=== PATIENT | female | born 1955 | race Caucasian/White ===

== ENCOUNTER → 2017-12-13 08:13 | Outpatient (CLI) | payer BC, SELFPAY ==
[2017-12-13 12:26] LABS: Absolute Lymphocyte Count 1.44 X10^3/ul (0.83-4.51); Absolute Neutrophil Count 3.3 X10^3/uL (2.0-7.7); Basophil# 0.04 X10^3/uL; Basophil% 0.7 % (0-1); Eosinophil# 0.11 X10^3/uL; Hematocrit 42.6 % (37-47); Hemoglobin 14.2 g/dl (12.0-15.0); Lymphocyte # 1.44 X10^3/ul (4.0); Lymphocyte % 26.6 % (19-41); Mean Corp Hgb Conc 33.3 g/gl (32-36); Mean Corpuscular Hgb 31.9 pg (27.0-32.0); Mean Corpuscular Volume 95.7 fL (81-99); Monocyte# 0.48 X10^3/uL; Monocyte% 8.9 % (0-10); Neutrophil # 3.32 X10^3/uL (2.7-7.7); Neutrophil % 61.4 % (47-70); Platelet Count 233 K/mm3 (150-450); RBC Distribution Width CV 13.8 % (11.6-14.6); RBC Distribution Width SD 46.9 fl (35.1-43.9); Red Blood Count 4.45 M/mm3 (4.2-5.4); White Blood Count 5.4 K/mm3 (4.4-11.0)
[2017-12-13 12:32] LABS: POSITIVE COUNT NO; POSITIVE DIFFERENTIAL NO; POSITIVE MORPHOLOGY NO
[2017-12-13 12:50] LABS: ALB/GLOB Ratio 1.3 RATIO (0.9-2.4); AST(SGOT) 23 U/L (15-37); Alanine Aminotransfer ALT/SGPT 46 U/L (13-56); Albumin, Serum 3.7 g/dL (3.2-5.0); Alkaline Phosphatase 114 U/L (45-117); Anion Gap 8 (5-15); BUN 13 mg/dL (7-18); BUN/Creat Ratio 20.2 RATIO (10-20); Calcium,Total 8.4 mg/dL (8.5-10.1); Chloride 102 mmol/L (98-107); Cholesterol 226 mg/dL (200); Creatinine, Serum 0.64 mg/dL (0.55-1.02); EST Glomerular Filtration Rate 99 mL/min (>60); Est Glom Filt Rate - Afr Amer 120 mL/min (>60); Globulin 2.8 g/dL (2.2-4.2); Glucose 91 mg/dL (74-106); High Density Lipoprotein 97 mg/dL; Potassium 4.2 mmol/L (3.5-5.1); Protein, Total 6.5 g/dL (6.4-8.2); Sodium Level 136 mmol/L (136-145); Thyroid Stim Hormone (TSH) 2.21 uIU/mL (0.358-3.74); Triglycerides 29 mg/dL; Very Low Density Lipoprotein 6 mg/dL (5-40)
== END ==
PROVIDERS: Family Provider Family Medicine; PCP Family Medicine; Visit Provider Family Medicine
DX: R03.0 Elevated blood-pressure reading, without diagnosis of hypertension (principal); Z86.39 Personal history of other endocrine, nutritional and metabolic disease
CPT/HCPCS: 36415; 80053; 80061; 84443; 85025

== ENCOUNTER → 2018-03-28 13:46 | Outpatient (CLI) | payer BC, SELFPAY ==
[2018-03-28 16:35] LABS: Estradiol < 11.0 pg/mL
[2018-03-28 16:48] LABS: Progesterone Level 0.74 ng/mL (See Comment)
[2018-04-02 11:28] LABS: HPV Reflexed? NOT INDICATED
--- OUTSIDE RECORDS SUMMARY | 2018-06-02 03:33 | XMS RPT_ITS ---
:1955 Author Organization OH[facility] Care Team Providers Name Role Phone Cheryle Godinez Attending Unavailable Lay Burger Attending Unavailable Lay Burger Primary Care Unavailable PROBLEMS PROBLEMS DATE TYPE CONDITION / CODE ATTENDING STATUS SOURCE 03/31/2018 Unknown Z12.4 - Encounter Cheryle Godinez for screening for Community malignant neoplasm [facility] cervix / Repository Z12.4(ICD-10) 03/31/2018 Unknown N95.1 - Menopausal Cheryle Godinez and female [facility] / N95.1(ICD-10) Repository 12/13/2017 Unknown R03.0 - Elevated Lay Burger Active [place] blood-pressure Community reading, without Hospital diagnosis of Repository hypertension / R03.0(ICD-10) 12/13/2017 Unknown Z86.39 - Personal Lay Burger Active [place] history of other Community endocrine, Hospital nutritional and Repository metabolic disease / Z86.39(ICD-10) PROCEDURES PROCEDURES No Procedure Records FoundRESULTS RESULTS ESTRADIOL Collected: 03/28/2018 Status: F Source: [place] 1:50 PM [facility] REPOSITORY TYPE CODE TESTS RESULT OUT OF RANGE REFERENCE UNITS LAB L3300.1750 pg/mL Normal ESTRADIOL < 11.0 Result Comment: NORMAL REFERENCE RANGES FEMALE FOLLICULAR 21.4 - 164.8 pg/mL MID-CYCLE PEAK 49.9 - 367.2 pg/mL LUTEAL 40.2 - 259.0 pg/mL POST-MENOPAUSAL ON MHT <11.0 - 462.1 pg/mL NOT ON MHT <11.0 - 58.3 pg/mL MALE <11.0 - 52.5 pg/mL NOTE: [facility] HAS CONFIRMED THE DRUG FULVETRANT (FASLODEX) MAY CAUSE FALSELY ELEVATED ESTRADIOL RESULTS WHEN USING THIS TEST METHOD. IF PATIENT IS TAKING FULVESTRANT AN ALTERNATIVE METHOD SHOULD BE USED TO DETERMINE ESTRADIOL CONCENTRATION. Performed By: #### L3300.1750 #### [facility] [address] [place], [address] PROGESTERONE LEVEL Collected: 03/28/2018 Status: F Source: [place] 1:[address] [facility] REPOSITORY TYPE CODE TESTS RESULT OUT OF REFERENCE UNITS RANGE LAB L509.4001 See Comment ng/mL Progesterone Normal 0.74 Result Comment: Progesterone Reference Table: UNITS Female: Follicular 0.15 - 1.40 ng/mL Luteal 3.34 - 25.56 ng/mL Mid-luteal 4.44 - 28.03 ng/mL Postmenopausal 0.0 - 0.73 ng/mL : 1st Trimester 11.22 - 90.00 ng/mL 2nd Trimester 25.55 - 89.40 ng/mL 3rd Trimester 48.40 -422.50 ng/mL Performed By: #### L509.4001 #### [facility] [address] [place], [address] PAP I-G W/RFX HRHPV Collected: 03/28/2018 Status: F Source: [place] 1:[address] [facility] REPOSITORY Order Comment: CYTOLOGY INFORMATION: - CLINICAL INFORMATION: HYSTERECTOMY - DATE LMP/MENOPAUSE: - COLLECTION VIAL: Thin Prep Vial - MACHINE CLOTH EXAMINER SOURCE: VAGINAL - COLLECTION TECHNIQUE: SPATULA ONLY Specimen Comment: [id number] Specimen Comment: Source.............Vagina Specimen Comment: LMP / Prev Treat...Hyst Specimen Comment: No. of containers..01 ThinPrep Vial TYPE CODE TESTS RESULT OUT OF RANGE REFERENCE UNITS LAB L7400.0800 . Normal DIAGN Comment Result Comment: NEGATIVE FOR INTRAEPITHELIAL LESION OR MALIGNANCY. CELLULAR CHANGES ASSOCIATED WITH ATROPHY ARE PRESENT. LAB L7400.0900 . Normal ADEQ Comment Result Comment: Satisfactory for evaluation. No endocervical cells are present. This is consistent with a history of hysterectomy. LAB L7400.1400 . Normal PERFORM Comment Result Comment: Shaila Parks, Amusement Machine Mechanic (ASCP) LAB L7400.2575 . Normal TEST METHOD Comment Result Comment: This liquid based ThinPrep(R) pap test was screened with the use of an image guided system. LAB L7400.2600 . Normal . COMM LAB L7400.2700 . Normal PAPSMR Comment Result Comment: The Pap smear is a screening test designed to aid in the detection of premalignant and malignant conditions of the uterine cervix. It is not a diagnostic procedure and should not be used as the sole means of detecting cervical cancer. Both false-positive and false-negative reports do occur. LAB L7400.2800 . Normal HPV RFLX Comment Result Comment: The HPV DNA reflex criteria were not met with this specimen result therefore, no HPV testing was performed. Performed at: - [facility] [id number] Tooling Supervisor: Alie Patel MD, Phone: [phone] Performed By: #### L7400.0350 #### [facility] (refer to report for specific site) refer to report for address and phone number CBC W/DIFF, AUTOMATED Collected: 12/13/2017 Status: F Source: [place] 8:[address] [facility] REPOSITORY TYPE CODE TESTS RESULT OUT OF RANGE REFERENCE UNITS LAB L100.1000 4.4-11.0 K/mm3 Normal WBC 5.4 LAB L100.1200 4.2-5.4 M/mm3 Normal RBC 4.45 LAB L100.1300 12.0-15.0 g/dl Normal HGB 14.2 LAB L100.1400 37-47 % Normal HCT 42.6 LAB L100.1500 81-99 fL Normal MCV 95.7 LAB L100.1600 27.0-32.0 pg Normal MCH 31.9 LAB L100.1700 32-36 g/gl Normal MCHC 33.3 LAB L100.1810 11.6-14.6 % Normal RDW CV 13.8 LAB L100.1820 35.1-43.9 fl High RDW SD 46.9 LAB L100.1900 150-450 K/mm3 Normal PLT 233 LAB L100.2000 6.2-12.0 fl Normal MPV 12.0 LAB L100.2100 47-70 % Normal NEUT% 61.4 LAB L100.2200 19-41 % Normal LY% 26.6 LAB L100.2300 0-10 % Normal MONO% 8.9 LAB L100.2400 0-5 % Normal EO% 2.0 LAB L100.2500 0-1 % Normal BASO% 0.7 LAB L100.2550 0.0-0.9 % Normal IM GRAN % 0.400 Result Comment: IG% - Immature Granulocytes (promyelocytes, myelocytes and metamyelocytes) > 1% indicates that a LEFT SHIFT is Present. LAB L100.2620 2.0-7.7 X10 3/uL Normal Absolute Neut 3.3 LAB L100.2720 0.83-4.51 X10 3/ul Normal Absolute Lymph 1.44 Performed By: #### L100.0100 #### [facility] [address] [place], [place], [address] COMPREHENSIVE METABOLIC Collected: 12/13/2017 Status: F Source: [facility] 8:[address] [facility] REPOSITORY TYPE CODE TESTS RESULT OUT OF RANGE REFERENCE UNITS LAB L501.0100 74-106 mg/dL Normal GLU 91 Result Comment: Please note revised GLUCOSE reference range effective 2017. LAB L501.1000 7-18 mg/dL Normal BUN 13 LAB L501.1100 0.55-1.02 mg/dL Normal CREAT,SERUM 0.64 Result Comment: The validity of the calculated GFR AND GFRAA in patients over 70 years has not been determined. Clinical correlation is essential. LAB L501.1110 >60 mL/min Normal EST GFR 99 Result Comment: Non- GFR Calc LAB L501.1115 >60 mL/min Normal EST GFR - AA 120 Result Comment: GFR Calc LAB L501.1300 10-20 RATIO High BUN/CRE 20.2 LAB L501.1500 6.4-8.2 g/dL T Normal PROT 6.5 LAB L501.1800 3.2-5.0 g/dL Normal ALB 3.7 LAB L501.1950 2.2-4.2 g/dL Normal GLOB 2.8 LAB L501.2000 0.9-2.4 RATIO Normal A/G 1.3 LAB L501.2200 8.5-10.1 mg/dL Low CA 8.4 LAB L501.4100 15-37 U/L Normal AST 23 LAB L501.4305 45-117 U/L Normal ALK P 114 LAB L501.4405 13-56 U/L Normal ALT 46 LAB L501.4600 0.20-1.00 mg/dL T Normal BILI 0.60 LAB L501.5300 136-145 mmol/L NA Normal 136 LAB L501.5600 3.5-5.1 mmol/L K Normal 4.2 LAB L501.5900 98-107 mmol/L CL Normal 102 LAB L501.6100 21.0-32.0 mmol/L Normal CO2 26.0 LAB L501.6200 5-15 Normal GAP 8 Performed By: #### L500.4050, L500.4100, L501.9520 #### [facility] [address] [place], [address] LIPID PROFILE Collected: 12/13/2017 Status: F Source: [place] 8:[address] [facility] REPOSITORY TYPE CODE TESTS RESULT OUT OF RANGE REFERENCE UNITS LAB L501.4900 200 mg/dL High CHOL 226 Result Comment: <200 mg/dL Desirable 200-240 mg/dL Borderline >240 mg/dL High Risk LAB L501.5000 mg/dL Normal TRIG 29 Result Comment: The drugs N-Acetylcysteine and Metamizole may falsely depress this assay. Serum Triglycerides Reference Interval Normal <150 mg/dL Borderline high 150 - 199 mg/dL High 200 - 499 mg/dL Very High > or = 500 mg/dL LAB L501.6400 mg/dL Normal HDL 97 Result Comment: The drugs N-Acetylcysteine and Metamizole may falsely depress this assay. Reference Range HDL <40 mg/dL Low HDL Cholesterol HDL >or= 60 mg/dL High HDL Cholesterol LAB L501.6500 0-130 mg/dL Normal LDL 123 LAB L501.6600 5-40 mg/dL Normal VLDL 6 Performed By: #### L500.4050, L500.4100, L501.9520 #### [facility] [address] [place], [address] THYROID STIM HORMONE Collected: 12/13/2017 Status: F Source: [place] ([facility]) 8:[address] [facility] REPOSITORY TYPE CODE TESTS RESULT OUT OF RANGE REFERENCE UNITS LAB L501.9520 0.358-3.74 uIU/mL Normal TSH 2.21 Performed By: #### L500.4050, L500.4100, L501.9520 #### [facility] [address] [facility] [place], [address] ALLERGIES ALLERGIES No Allergies Records FoundENCOUNTERS ENCOUNTERS ADMIT/DISCHARGE ACCOUNT ADMITTING ENCOUNTER LOCATION SOURCE NUMBER CLASS 03/28/2018 [id number] Ambulatory [facility] 5 [facility] ing:WOBLAB Repository 12/13/2017 [id number] Ambulatory [facility] 3 [facility] ing:BFHLAB Repository PAYERS PAYERS ENCOUNTER GUARANTOR PAYER SUBSCRIBER SOURCE 03/28/2018 [id number], [facility]: [id number] [address]Gcy: [id number] Repository Date:[id number] [address] () [id number] [place] [address]JQ: 03/28/2018 Secondary NOT GIVENUNK [place] Insurance:SELF PAY [facility] Number: Effective Repository Date:2018-03-28 12/13/2017 [facility] Armin Pacheco [place] [id number] Insurance:[facility] CentercockD[facility]: Community ASP y Number: [id number] [id number] Repository [address]Fca: 330) Date:[phone] () [address]FSDSS[place], [place] [address]HM: 12/13/2017 Secondary NOT GIVENUNK [place] Insurance:SELF PAY [facility] Number: Effective Repository Date:2017-12-13
== END ==
PROVIDERS: Visit Provider Obstetrics & Gynecology
DX: Z12.4 Encounter for screening for malignant neoplasm of cervix (principal); Z78.0 Asymptomatic menopausal state
CPT/HCPCS: 36415; 82670; 84144; 88175; G0145

== ENCOUNTER → 2018-04-11 11:54 | Outpatient (CLI) | payer BC, SELFPAY ==
--- NOTE | 2018-04-11 11:56 | BI_ITS ---
MAMMOGRAPHY - BILATERAL SCREENING REASON FOR EXAM: Female, 62 years old. Routine annual screening examination. PERTINENT HISTORY: Non-contributory. TECHNIQUE: Digital bilateral breast lucy (3D mammographic acquisition) in the CC and MLO projections. 2-D mediolateral oblique (MLO) and craniocaudad (CC) views of both breasts were obtained. CAD: Full Field Digital Mammography with Computer Added Detection was performed. COMPARISON: Comparison is made with prior study dated February 20, 2017 and February 07, 2016. FINDINGS: Breast Composition: There are scattered areas of fibroglandular density. There are no dominant masses or suspicious calcifications. Stable small bilateral axillary lymph nodes. No other significant abnormalities are identified. There has been no significant change since the prior study. BI/SCREENING MAMM (CAD), BILAT IMPRESSION: Stable bilateral screening mammogram. Yearly follow-up mammogram recommended. (A) ASSESSMENT CATEGORY: BIRADS Category 2: Benign. A letter regarding these results will be sent to the patient by the facility within 30 days. Approximately 10% of breast cancers are not detected by mammography. A normal mammogram should not delay biopsy of a clinically suspicious abnormality. [id number] Electronically Signed: Aman Calvo MD at 13:08 EST , Service support ,
== END ==
PROVIDERS: Family Provider Family Medicine; PCP Family Medicine; Referring Provider Obstetrics & Gynecology; Visit Provider Obstetrics & Gynecology
DX: Z12.31 Encounter for screening mammogram for malignant neoplasm of breast (principal)
CPT/HCPCS: 77063; 77067

== ENCOUNTER → 2018-07-10 | Outpatient (CLI) | payer BC, SELFPAY ==
[2018-07-10 13:15] LABS: Estradiol 16.1 pg/mL; Free T3 2.8 pg/mL (2.18-3.98); Thyroid Stim Hormone (TSH) 1.48 uIU/mL (0.358-3.74)
[2018-07-10 14:24] LABS: Progesterone Level 0.77 ng/mL (See Comment)
[2018-07-11 12:24] LABS: Thyroid Peroxidase AB 24 IU/mL (0-34)
== END | disposition home or self-care (01) ==
LOC: MTLAB 10:24
PROVIDERS: Family Provider Family Medicine; PCP Family Medicine; Referring Provider Preventive Medicine Public Health & General Preventive Medicine; Visit Provider Preventive Medicine Public Health & General Preventive Medicine
DX: E03.9 Hypothyroidism, unspecified (principal); E34.9 Endocrine disorder, unspecified; N95.1 Menopausal and female climacteric states
CPT/HCPCS: 36415; 82670; 84144; 84403; 84439; 84443; 84481; 86376

== ENCOUNTER → 2019-02-24 12:05 | Outpatient (CLI) | payer BC, SELFPAY ==
--- NOTE | 2019-02-24 12:11 | BD_ITS ---
STUDY: DUAL ENERGY X-RAY ABSORPTIOMETRY / DXA REASON FOR EXAM: Female, 63 years old. The patient is postmenopausal. No loss of height. TECHNIQUE: Bone Mineral Density (BMD) measurements of lumbar spine and bilateral hips were obtained. COMPARISON: Comparison is made with prior study dated February 20, 2017. FINDINGS: Lumbar Spine (L1-L4): g/cm2 (1.019) / T-score (-1.3) / Z-score (0.2) Findings are suggestive of osteopenia with a low fracture risk. Left Femur Total: g/cm2 (0.960) / T-score (-0.4) / Z-score (0.8) Left Femoral Neck: g/cm2 (0.811) / T-score (-1.6) / Z-score (-0.2) Right Femur Total: g/cm2 (0.924) / T-score (-0.7) / Z-score (0.5) Right Femoral Neck: g/cm2 (0.860) / T-score (-1.3) / Z-score (0.2) The T-Scores on the most recent prior examination were: Lumbar Spine (L1-L4): There has been improvement of bone density since the previous examination. Left Femur Total: which represents a worsening of 0.5%. Right Femur Total: which represents a worsening of 3.8%. BD/Dexa Bone Density Study IMPRESSION: The patient is considered osteopenic as outlined below according to World Haris Organization (WHO) criteria with a moderate fracture risk. There has been worsening of bone density since the previous examination. Reference Information: The T-score is the number of standard deviations above or below the standard which is normal for young adults at their peak bone mineral density. The World Health Organization (WHO) interprets the T-scores as follows: Above -1 Normal bone density Between -1 and -2.5 Osteopenia Equal to / or below -2.5 Osteoporosis As a practical clinical guideline, osteopenia may be graded as follows: Mild -1 through -1.5 Moderate -1.6 through -2.0 Severe -2.1 through -2.4 The Z-score is the number of standard deviations above or below age-matched controls. A Z-score of less than -1.5 would be considered abnormal. References: 1. NIH Osteoporosis and Related Bone Diseases http://www.osteo.org 2. International Society for Clinical Densitometry http://www.iscd.org 3. National Osteoporosis Foundation http://www.nof.org Electronically Signed: Aman Calvo, at 12:44 EST , Service support ,
== END ==
PROVIDERS: Family Provider Nurse Practitioner; PCP Nurse Practitioner; Referring Provider Nurse Practitioner; Visit Provider Nurse Practitioner
DX: Z78.0 Asymptomatic menopausal state (principal)
CPT/HCPCS: 77080

== ENCOUNTER → 2019-03-10 09:43 | Outpatient (CLI) | payer BC, SELFPAY ==
[2019-03-10 10:47] LABS: Absolute Lymphocyte Count 2.08 X10^3/uL (0.83-4.51); Basophil# 0.07 X10^3/uL; Basophil% 0.7 % (0-1); Eosinophil# 0.15 X10^3/uL; Eosinophils% 1.5 % (0-5); Hematocrit 45.7 % (37-47); Hemoglobin 15.2 g/dL (12.0-15.0); Lymphocyte # 2.08 X10^3/ul (4.0); Lymphocyte % 20.7 % (19-41); Mean Corp Hgb Conc 33.3 g/dL (32-36); Mean Corpuscular Volume 90.1 fL (81-99); Mean Platelet Vol. 11.1 fl (6.2-12.0); Monocyte# 0.58 X10^3/uL; Monocyte% 5.8 % (0-10); NRBC Flagged by Analyzer 0 % (0-5); Neutrophil # 7.01 X10^3/uL (2.7-7.7); Neutrophil % 69.7 % (47-70); Platelet Count 309 K/mm3 (150-450); RBC Distribution Width CV 12.8 % (11.6-14.6); RBC Distribution Width SD 41.9 fl (35.1-43.9); Red Blood Count 5.07 M/mm3 (4.2-5.4); White Blood Count 10.1 K/mm3 (4.4-11.0)
[2019-03-10 11:21] LABS: Progesterone Level 0.36 ng/mL (See Comment); Vitamin D,25 Hydroxy 68.5 ng/mL (29.95-100.01)
[2019-03-10 15:06] LABS: ALB/GLOB Ratio 1.1 RATIO (0.9-2.4); AST(SGOT) 19 U/L (15-37); Alanine Aminotransfer ALT/SGPT 38 U/L (13-56); Albumin, Serum 3.7 g/dL (3.2-5.0); Alkaline Phosphatase 120 U/L (45-117); Anion Gap 7 (5-15); BUN 14 mg/dL (7-18); BUN/Creat Ratio 13.6 RATIO (10-20); Calcium,Total 8.9 mg/dL (8.5-10.1); Chloride 105 mmol/L (98-107); Creatinine, Serum 1.03 mg/dL (0.55-1.02); EST Glomerular Filtration Rate 57 mL/min (>60); Est Glom Filt Rate - Afr Amer 69 mL/min (>60); Estradiol 21.4 pg/mL; Free T3 2.7 pg/mL (2.18-3.98); Globulin 3.3 g/dL (2.2-4.2); Glucose 100 mg/dL (74-106); Potassium 3.7 mmol/L (3.5-5.1); Sodium Level 137 mmol/L (136-145); T4 Free Direct 1.06 ng/dL (0.76-1.46); Thyroid Stim Hormone (TSH) 1.53 uIU/mL (0.358-3.74)
[2019-03-11 17:05] LABS: Thyroid Peroxidase AB 16 IU/mL (0-34)
== END ==
PROVIDERS: Family Provider Nurse Practitioner; PCP Nurse Practitioner; Referring Provider Preventive Medicine Public Health & General Preventive Medicine; Visit Provider Preventive Medicine Public Health & General Preventive Medicine
DX: E03.9 Hypothyroidism, unspecified (principal); E34.9 Endocrine disorder, unspecified; E88.9 Metabolic disorder, unspecified; N95.1 Menopausal and female climacteric states
CPT/HCPCS: 80053; 82306; 82670; 84144; 84403; 84439; 84443; 84481; 85025; 86376

== ENCOUNTER → 2019-04-20 12:37 | Outpatient (CLI) | payer BC, SELFPAY ==
--- NOTE | 2019-04-20 12:39 | BI_ITS ---
MAMMOGRAPHY - BILATERAL SCREENING REASON FOR EXAM: Female, 63 years old. Routine annual screening examination. PERTINENT HISTORY: Non-contributory. TECHNIQUE: Digital bilateral breast anthony (3D mammographic acquisition) in the CC and MLO projections. 2-D mediolateral oblique (MLO) and craniocaudad (CC) views of both breasts were obtained. CAD: Full Field Digital Mammography with Computer Added Detection was performed. COMPARISON: Comparison is made with prior study dated April 11, 2018 and February 20, 2017. FINDINGS: Breast Composition: There are scattered areas of fibroglandular density. There are no dominant masses or suspicious calcifications. Stable benign-appearing bilateral axilla. No other significant abnormalities are identified. There has been no significant change since the prior study. BI/SCREEN MAMM (CAD) W/ANTHONY BILAT IMPRESSION: Stable bilateral screening mammogram. Yearly follow-up mammogram recommended. (A) ASSESSMENT CATEGORY: BIRADS Category 2: Benign. A letter regarding these results will be sent to the patient by the facility within 30 days. Approximately 10% of breast cancers are not detected by mammography. A normal mammogram should not delay biopsy of a clinically suspicious abnormality. [id number] Electronically Signed: Aman Calvo, at 13:46 EST , Service support ,
== END ==
PROVIDERS: PCP Nurse Practitioner; Referring Provider Obstetrics & Gynecology; Visit Provider Obstetrics & Gynecology
DX: Z12.31 Encounter for screening mammogram for malignant neoplasm of breast (principal)
CPT/HCPCS: 77063; 77067

== ENCOUNTER → 2019-08-05 10:25 | Outpatient (CLI) | payer BC, SELFPAY ==
[2019-08-05 13:08] LABS: Absolute Lymphocyte Count 1.63 X10^3/uL (0.83-4.51); Absolute Neutrophil Count 3.2 X10^3/uL (2.0-7.7); Basophil# 0.03 X10^3/uL; Basophil% 0.5 % (0-1); Eosinophils% 1.8 % (0-5); Hematocrit 45.3 % (37-47); Hemoglobin 14.9 g/dL (12.0-15.0); Lymphocyte # 1.63 X10^3/ul (4.0); Lymphocyte % 29.6 % (19-41); Mean Corp Hgb Conc 32.9 g/dL (32-36); Mean Corpuscular Hgb 31.1 pg (27.0-32.0); Mean Corpuscular Volume 94.6 fL (81-99); Mean Platelet Vol. 12.2 fl (6.2-12.0); Monocyte# 0.52 X10^3/uL; Monocyte% 9.4 % (0-10); NRBC Flagged by Analyzer 0 % (0-5); Neutrophil # 3.21 X10^3/uL (2.7-7.7); Neutrophil % 58.3 % (47-70); Platelet Count 230 K/mm3 (150-450); RBC Distribution Width CV 13.1 % (11.6-14.6); RBC Distribution Width SD 45.5 fl (35.1-43.9); Red Blood Count 4.79 M/mm3 (4.2-5.4); White Blood Count 5.5 K/mm3 (4.4-11.0)
[2019-08-05 13:23] LABS: ALB/GLOB Ratio 1.3 RATIO (0.9-2.4); AST(SGOT) 20 U/L (15-37); Alanine Aminotransfer ALT/SGPT 33 U/L (13-56); Alkaline Phosphatase 109 U/L (45-117); Anion Gap 6 (5-15); BUN 13 mg/dL (7-18); BUN/Creat Ratio 18.5 RATIO (10-20); Calcium,Total 9.2 mg/dL (8.5-10.1); Chloride 105 mmol/L (98-107); EST Glomerular Filtration Rate 89 mL/min (>60); Est Glom Filt Rate - Afr Amer 107 mL/min (>60); Globulin 3.1 g/dL (2.2-4.2); Glucose 105 mg/dL (74-106); Potassium 3.9 mmol/L (3.5-5.1); Protein, Total 7.1 g/dL (6.4-8.2); Sodium Level 138 mmol/L (136-145)
== END ==
PROVIDERS: PCP Nurse Practitioner; Referring Provider Nurse Practitioner; Visit Provider Nurse Practitioner
DX: I10 Essential (primary) hypertension (principal)
CPT/HCPCS: 36415; 80053; 85025

== ENCOUNTER → 2020-04-22 08:32 | Outpatient (CLI) | payer OTHER, SELFPAY ==
--- NOTE | 2020-04-22 08:34 | BI_ITS ---
MAMMOGRAPHY - BILATERAL SCREENING REASON FOR EXAM: Female, 64 years old. Routine annual screening examination. PERTINENT HISTORY: Non-contributory. TECHNIQUE: Digital bilateral breast anthony (3D mammographic acquisition) in the CC and MLO projections. 2-D mediolateral oblique (MLO) and craniocaudad (CC) views of both breasts were obtained. CAD: Full Field Digital Mammography with Computer Added Detection was performed. COMPARISON: Comparison is made with prior study dated 04/20/2019 and 04/11/2018. FINDINGS: Breast Composition: There are scattered areas of fibroglandular density. There are no dominant masses or suspicious calcifications. Stable small benign-appearing bilateral axillary lymph nodes. No other significant abnormalities are identified. There has been no significant change since the prior study. BI/SCRN MAMM (CAD)W/ANTHONY BILAT IMPRESSION: Stable bilateral screening mammogram. Yearly follow-up mammogram recommended. (A) ASSESSMENT CATEGORY: BIRADS Category 2: Benign. A letter regarding these results will be sent to the patient by the facility within 30 days. Approximately 10% of breast cancers are not detected by mammography. A normal mammogram should not delay biopsy of a clinically suspicious abnormality. [id number] Electronically Signed: Aman Calvo MD at 11:05 EST , Service support ,
== END ==
PROVIDERS: PCP Nurse Practitioner; Referring Provider Nurse Practitioner; Visit Provider Nurse Practitioner
DX: Z12.31 Encounter for screening mammogram for malignant neoplasm of breast (principal)
CPT/HCPCS: 77063; 77067

== ENCOUNTER → 2020-11-09 08:23 | Outpatient (CLI) | payer MEDICARE, SELFPAY ==
[2020-11-09 10:14] LABS: Absolute Lymphocyte Count 1.37 X10^3/uL (0.83-4.51); Absolute Neutrophil Count 2.9 X10^3/uL (2.0-7.7); Basophil# 0.04 X10^3/uL; Basophil% 0.8 % (0-1); Eosinophil# 0.08 X10^3/uL; Eosinophils% 1.7 % (0-5); Hematocrit 43.3 % (37-47); Hemoglobin 14.8 g/dL (12.0-15.0); Lymphocyte # 1.37 X10^3/ul (0.83-4.51); Lymphocyte % 29.1 % (19-41); Mean Corp Hgb Conc 34.2 g/dL (32-36); Mean Corpuscular Hgb 31.9 pg (27.0-32.0); Mean Corpuscular Volume 93.3 fL (81-99); Monocyte# 0.36 X10^3/uL; Monocyte% 7.6 % (0-10); NRBC Flagged by Analyzer 0 % (0-5); Neutrophil # 2.85 X10^3/uL (2.7-7.7); Neutrophil % 60.6 % (47-70); Platelet Count 228 K/mm3 (150-450); RBC Distribution Width CV 13.1 % (11.6-14.6); RBC Distribution Width SD 44.3 fl (35.1-43.9); Red Blood Count 4.64 M/mm3 (4.2-5.4); White Blood Count 4.7 K/mm3 (4.4-11.0)
[2020-11-09 10:32] LABS: Progesterone Level 0.93 ng/mL (See Comment)
[2020-11-09 11:20] LABS: ALB/GLOB Ratio 1.3 RATIO (0.9-2.4); AST(SGOT) 15 U/L (15-37); Alanine Aminotransfer ALT/SGPT 34 U/L (13-56); Albumin, Serum 3.9 g/dL (3.2-5.0); Alkaline Phosphatase 114 U/L (45-117); Anion Gap 6 (5-15); BUN 13 mg/dL (7-18); BUN/Creat Ratio 20.4 RATIO (10-20); Calcium,Total 8.4 mg/dL (8.5-10.1); Chloride 103 mmol/L (98-107); Creatinine, Serum 0.64 mg/dL (0.55-1.02); EST Glomerular Filtration Rate 99 mL/min (>60); Est Glom Filt Rate - Afr Amer 120 mL/min (>60); Estradiol 18.6 pg/mL; Free T3 2.7 pg/mL (2.18-3.98); Globulin 2.9 g/dL (2.2-4.2); Glucose 97 mg/dL (74-106); Potassium 3.7 mmol/L (3.5-5.1); Protein, Total 6.8 g/dL (6.4-8.2); Sodium Level 135 mmol/L (136-145); T4 Free Direct 1.02 ng/dL (0.76-1.46); Thyroid Stim Hormone (TSH) 2.22 uIU/mL (0.358-3.74)
[2020-11-10 08:09] LABS: DHEA Sulfate 70.4 ug/dL (20.4-186.6)
[2020-11-10 08:26] LABS: Thyroid Peroxidase AB 34 IU/mL (0-34)
== END ==
PROVIDERS: PCP Nurse Practitioner; Referring Provider Preventive Medicine Public Health & General Preventive Medicine; Visit Provider Preventive Medicine Public Health & General Preventive Medicine
DX: E03.9 Hypothyroidism, unspecified (principal); E34.9 Endocrine disorder, unspecified; N95.1 Menopausal and female climacteric states
CPT/HCPCS: 36415; 80053; 82627; 82670; 84144; 84403; 84439; 84443; 84481; 85025; 86376; 82626

== ENCOUNTER 2021-04-25 11:57 | Outpatient (CLI) | payer MEDICARE, SELFPAY ==
--- NOTE | 2021-04-25 12:06 | BI_ITS ---
MAMMOGRAPHY - BILATERAL SCREENING REASON FOR EXAM: Female, 65 years old. Routine annual screening examination. PERTINENT HISTORY: Non-contributory. TECHNIQUE: Digital bilateral breast anthony (3D mammographic acquisition) in the CC and MLO projections. 2-D mediolateral oblique (MLO) and craniocaudad (CC) views of both breasts were obtained. CAD: Full Field Digital Mammography with Computer Added Detection was performed. COMPARISON: Comparison is made with prior examination of 04/22/2020 and 04/20/2019. FINDINGS: Breast Composition: There are scattered areas of fibroglandular density. There are no dominant masses or suspicious calcifications. Stable small benign-appearing bilateral axillary lymph nodes. No other significant abnormalities are identified. There has been no significant change since the prior study. BI/SCRN MAMM (CAD)W/ANTHONY BILAT IMPRESSION: Stable bilateral screening mammogram. Yearly follow-up mammogram recommended. (A) ASSESSMENT CATEGORY: BIRADS Category 2: Benign. A letter regarding these results will be sent to the patient by the facility within 30 days. Approximately 10% of breast cancers are not detected by mammography. A normal mammogram should not delay biopsy of a clinically suspicious abnormality. [id number] Electronically Signed: Aman Calvo MD at 13:10 EST ,
== END 2021-04-25 23:59 | disposition home or self-care (01) ==
PROVIDERS: PCP Nurse Practitioner; Referring Provider Nurse Practitioner; Visit Provider Nurse Practitioner
DX: Z12.31 Encounter for screening mammogram for malignant neoplasm of breast (principal)
CPT/HCPCS: 77063; 77067

== ENCOUNTER → 2021-07-19 | Outpatient (CLI) | payer MEDICARE, SELFPAY ==
[2021-07-19 09:44] LABS: Absolute Lymphocyte Count 1.41 X10^3/uL (0.83-4.51); Absolute Neutrophil Count 3.6 X10^3/uL (2.0-7.7); Basophil# 0.04 X10^3/uL; Basophil% 0.7 % (0-1); Eosinophil# 0.09 X10^3/uL; Eosinophils% 1.6 % (0-5); Hematocrit 46.4 % (37-47); Hemoglobin 15.7 g/dL (12.0-15.0); Lymphocyte # 1.41 X10^3/ul (0.83-4.51); Lymphocyte % 25.1 % (19-41); Mean Corp Hgb Conc 33.8 g/dL (32-36); Mean Corpuscular Hgb 31.7 pg (27.0-32.0); Mean Corpuscular Volume 93.5 fL (81-99); Mean Platelet Vol. 11.7 fl (6.2-12.0); Monocyte# 0.41 X10^3/uL; Monocyte% 7.3 % (0-10); NRBC Flagged by Analyzer 0 % (0-5); Neutrophil # 3.63 X10^3/uL (2.7-7.7); Neutrophil % 64.8 % (47-70); Platelet Count 238 K/mm3 (150-450); RBC Distribution Width CV 12.7 % (11.6-14.6); RBC Distribution Width SD 43.7 fl (35.1-43.9); Red Blood Count 4.96 M/mm3 (4.2-5.4); White Blood Count 5.6 K/mm3 (4.4-11.0)
[2021-07-19 10:10] LABS: Progesterone Level 1.08 ng/mL (See Comment)
[2021-07-19 10:18] LABS: ALB/GLOB Ratio 1.2 RATIO (0.9-2.4); AST(SGOT) 13 U/L (15-37); Alanine Aminotransfer ALT/SGPT 30 U/L (13-56); Alkaline Phosphatase 104 U/L (45-117); Anion Gap 6 (5-15); BUN 21 mg/dL (7-18); BUN/Creat Ratio 29.1 RATIO (10-20); Calcium,Total 8.9 mg/dL (8.5-10.1); Chloride 102 mmol/L (98-107); Creatinine, Serum 0.72 mg/dL (0.55-1.02); EST Glomerular Filtration Rate 86 mL/min (>60); Est Glom Filt Rate - Afr Amer 104 mL/min (>60); Estradiol 15.5 pg/mL; Free T3 3.4 pg/mL (2.18-3.98); Globulin 3.2 g/dL (2.2-4.2); Glucose 100 mg/dL (74-106); Potassium 3.9 mmol/L (3.5-5.1); Protein, Total 7.2 g/dL (6.4-8.2); Sodium Level 135 mmol/L (136-145); T4 Free Direct 0.93 ng/dL (0.76-1.46); Thyroid Stim Hormone (TSH) 2.26 uIU/mL (0.358-3.74)
[2021-07-20 10:36] LABS: Thyroid Peroxidase AB 13 IU/mL (0-34)
== END | disposition home or self-care (01) ==
PROVIDERS: PCP Nurse Practitioner
DX: E03.9 Hypothyroidism, unspecified (principal); E34.9 Endocrine disorder, unspecified; N95.1 Menopausal and female climacteric states
CPT/HCPCS: 36415; 80053; 82627; 82670; 84144; 84403; 84439; 84443; 84481; 85025; 86376; 82626

== ENCOUNTER → 2022-01-26 | Outpatient (CLI) | payer MEDICARE, SELFPAY ==
[2022-01-26 10:32] LABS: ALB/GLOB Ratio 1.3 RATIO (0.9-2.4); AST(SGOT) 17 U/L (15-37); Alanine Aminotransfer ALT/SGPT 27 U/L (13-56); Albumin, Serum 3.8 g/dL (3.2-5.0); Alkaline Phosphatase 104 U/L (45-117); Anion Gap 7 (5-15); BUN 14 mg/dL (7-18); BUN/Creat Ratio 19.5 RATIO (10-20); Calcium,Total 8.9 mg/dL (8.5-10.1); Chloride 100 mmol/L (98-107); Creatinine, Serum 0.72 mg/dL (0.55-1.02); EST Glomerular Filtration Rate 86 mL/min (>60); Est Glom Filt Rate - Afr Amer 104 mL/min (>60); Globulin 2.9 g/dL (2.2-4.2); Glucose 92 mg/dL (74-106); Potassium 3.9 mmol/L (3.5-5.1); Protein, Total 6.7 g/dL (6.4-8.2); Sodium Level 132 mmol/L (136-145)
== END | disposition home or self-care (01) ==
LOC: MTLAB 07:17
PROVIDERS: PCP Nurse Practitioner Family; Referring Provider Nurse Practitioner Family; Visit Provider Nurse Practitioner Family
DX: I10 Essential (primary) hypertension (principal)
CPT/HCPCS: 36415; 80053

== ENCOUNTER → 2022-05-28 | Outpatient (CLI) | payer MEDICARE, SELFPAY ==
[2022-05-28 15:45] LABS: Absolute Lymphocyte Count 2.17 X10^3/uL (0.83-4.51); Absolute Neutrophil Count 4.6 X10^3/uL (2.0-7.7); Basophil# 0.05 X10^3/uL; Basophil% 0.7 % (0-1); Eosinophils% 1.4 % (0-5); Hematocrit 48.1 % (37-47); Lymphocyte # 2.17 X10^3/ul (0.83-4.51); Lymphocyte % 29.3 % (19-41); Mean Corp Hgb Conc 33.3 g/dL (32-36); Mean Corpuscular Hgb 31.3 pg (27.0-32.0); Mean Corpuscular Volume 94.1 fL (81-99); Mean Platelet Vol. 11.8 fl (6.2-12.0); Monocyte# 0.46 X10^3/uL; Monocyte% 6.2 % (0-10); NRBC Flagged by Analyzer 0 % (0-5); Neutrophil # 4.59 X10^3/uL (2.7-7.7); Platelet Count 286 K/mm3 (150-450); RBC Distribution Width CV 12.6 % (11.6-14.6); RBC Distribution Width SD 43.8 fl (35.1-43.9); Red Blood Count 5.11 M/mm3 (4.2-5.4); White Blood Count 7.4 K/mm3 (4.4-11.0)
[2022-05-28 16:17] LABS: Progesterone Level 0.57 ng/mL (See Comment)
[2022-05-28 16:23] LABS: ALB/GLOB Ratio 1.3 RATIO (0.9-2.4); AST(SGOT) 16 U/L (15-37); Alanine Aminotransfer ALT/SGPT 25 U/L (13-56); Albumin, Serum 4.1 g/dL (3.2-5.0); Alkaline Phosphatase 97 U/L (45-117); Anion Gap 8 (5-15); BUN 11 mg/dL (7-18); BUN/Creat Ratio 13.7 RATIO (10-20); Calcium,Total 9.4 mg/dL (8.5-10.1); Chloride 102 mmol/L (98-107); EST Glomerular Filtration Rate 75 mL/min (>60); Est Glom Filt Rate - Afr Amer 91 mL/min (>60); Estradiol 20.4 pg/mL; Free T3 2.6 pg/mL (2.18-3.98); Globulin 3.1 g/dL (2.2-4.2); Glucose 124 mg/dL (74-106); Potassium 3.2 mmol/L (3.5-5.1); Protein, Total 7.2 g/dL (6.4-8.2); Sodium Level 139 mmol/L (136-145); T4 Free Direct 1.02 ng/dL (0.76-1.46); Thyroid Stim Hormone (TSH) 2.45 uIU/mL (0.358-3.74)
[2022-05-30 10:40] LABS: Thyroid Peroxidase AB 19 IU/mL (0-34)
== END | disposition home or self-care (01) ==
PROVIDERS: PCP Nurse Practitioner Family
DX: E03.9 Hypothyroidism, unspecified (principal); N95.1 Menopausal and female climacteric states
CPT/HCPCS: 36415; 80053; 82627; 82670; 84144; 84403; 84439; 84443; 84481; 85025; 86376; 82626

== ENCOUNTER → 2022-08-29 | Outpatient (CLI) | payer MEDICARE, SELFPAY ==
[2022-09-01 16:08] LABS: Wheat <0.10 kU/L (Class 0)
[2022-09-01 18:07] LABS: Clam <0.10 kU/L (Class 0); Codfish <0.10 kU/L (Class 0); Corn <0.10 kU/L (Class 0); Egg, White <0.10 kU/L (Class 0); Gluten <0.10 kU/L (Class 0); Milk (Cow) <0.10 kU/L (Class 0); Peach <0.10 kU/L (Class 0); Peanut <0.10 kU/L (Class 0); SCALLOP <0.10 kU/L (Class 0); SESAME SEED <0.10 kU/L (Class 0); Shrimp <0.10 kU/L (Class 0); Soybean <0.10 kU/L (Class 0); Strawberry <0.10 kU/L (Class 0); Tomato <0.10 kU/L (Class 0); Walnut, (Food) <0.10 kU/L (Class 0); Wheat <0.10 kU/L (Class 0)
== END | disposition home or self-care (01) ==
LOC: LAB 09:17
PROVIDERS: PCP Nurse Practitioner Family; Referring Provider Otolaryngology Otolaryngology/Facial Plastic Surgery; Visit Provider Otolaryngology Otolaryngology/Facial Plastic Surgery
DX: T78.40XA Allergy, unspecified, initial encounter (principal)
CPT/HCPCS: 36415; 86003

== ENCOUNTER → 2023-08-07 | Outpatient (CLI) | payer MEDICARE, SELFPAY ==
[2023-08-07 11:31] LABS: Absolute Lymphocyte Count 1.48 X10^3/uL (0.83-4.51); Absolute Neutrophil Count 4.5 X10^3/uL (2.0-7.7); Basophil# 0.05 X10^3/uL; Basophil% 0.7 % (0-1); Eosinophil# 0.12 X10^3/uL; Eosinophils% 1.8 % (0-5); Hematocrit 45.8 % (37-47); Hemoglobin 14.9 g/dL (12.0-15.0); Lymphocyte # 1.48 X10^3/ul (0.83-4.51); Lymphocyte % 21.9 % (19-41); Mean Corp Hgb Conc 32.5 g/dL (32-36); Mean Corpuscular Hgb 30.5 pg (27.0-32.0); Mean Corpuscular Volume 93.9 fL (81-99); Mean Platelet Vol. 12.7 fl (6.2-12.0); Monocyte# 0.56 X10^3/uL; Monocyte% 8.3 % (0-10); NRBC Flagged by Analyzer 0 % (0-5); Neutrophil % 66.7 % (47-70); Platelet Count 255 K/mm3 (150-450); RBC Distribution Width CV 12.9 % (11.6-14.6); RBC Distribution Width SD 44.7 fl (35.1-43.9); Red Blood Count 4.88 M/mm3 (4.2-5.4); White Blood Count 6.8 K/mm3 (4.4-11.0)
[2023-08-07 12:21] LABS: ALB/GLOB Ratio 1.2 RATIO (0.9-2.4); AST(SGOT) 16 U/L (15-37); Alanine Aminotransfer ALT/SGPT 25 U/L (13-56); Albumin, Serum 3.8 g/dL (3.2-5.0); Alkaline Phosphatase 98 U/L (45-117); Anion Gap 6 (5-15); BUN 13 mg/dL (7-18); Calcium,Total 8.9 mg/dL (8.5-10.1); Chloride 103 mmol/L (98-107); Creatinine, Serum 0.72 mg/dL (0.55-1.02); EST Glomerular Filtration Rate 85 mL/min (>60); Est Glom Filt Rate - Afr Amer 103 mL/min (>60); Estradiol 21.2 pg/mL; Free T3 2.6 pg/mL (2.18-3.98); Globulin 3.1 g/dL (2.2-4.2); Glucose 98 mg/dL (74-106); Protein, Total 6.9 g/dL (6.4-8.2); Sodium Level 132 mmol/L (136-145); T4 Free Direct 0.95 ng/dL (0.76-1.46); Thyroid Stim Hormone (TSH) 2.32 uIU/mL (0.358-3.74)
[2023-08-07 17:10] LABS: Vitamin B12 525 pg/mL (211-911); Vitamin D,25 Hydroxy 78.8 ng/mL
[2023-08-08 04:07] LABS: DHEA Sulfate 83.7 ug/dL (20.4-186.6); PROGESTERONE 0.9 ng/mL (.); Thyroid Peroxidase AB 16 IU/mL (0-34)
== END | disposition home or self-care (01) ==
PROVIDERS: PCP Nurse Practitioner Family
DX: E03.9 Hypothyroidism, unspecified (principal); N95.1 Menopausal and female climacteric states; E55.9 Vitamin D deficiency, unspecified
CPT/HCPCS: 36415; 80053; 82306; 82607; 82627; 82670; 82746; 84144; 84403; 84439; 84443; 84481; 85025; 86376; 82626

== ENCOUNTER → 2023-08-23 | Outpatient (CLI) | payer MEDICARE, SELFPAY ==
--- NOTE | 2023-08-23 14:48 | BI_ITS ---
MAMMOGRAPHY - BILATERAL SCREENING REASON FOR EXAM: Female, 68 years old. Routine annual screening examination. PERTINENT HISTORY: Non-contributory. TECHNIQUE: Digital bilateral breast anthony (3D mammographic acquisition) in the CC and MLO projections. 2-D mediolateral oblique (MLO) and craniocaudad (CC) views of both breasts were obtained. CAD: Full Field Digital Mammography with Computer Added Detection was performed. COMPARISON: Comparison is made with prior study dated April 25, 2021 and April 22, 2020. FINDINGS: Breast Composition: There are scattered areas of fibroglandular density. There are no dominant masses or suspicious calcifications. Stable small benign-appearing bilateral axillary lymph nodes. No other significant abnormalities are identified. There has been no significant change since the prior study. BI/SCRN MAMM (CAD)W/ANTHONY BILAT IMPRESSION: Stable bilateral screening mammogram. Yearly follow-up mammogram recommended. (A) ASSESSMENT CATEGORY: BIRADS Category 2: Benign. A letter regarding these results will be sent to the patient by the facility within 30 days. Approximately 10% of breast cancers are not detected by mammography. A normal mammogram should not delay biopsy of a clinically suspicious abnormality. [id number] Electronically Signed: Aman Calvo MD at 8:45 EDT ,
== END | disposition home or self-care (01) ==
LOC: OPBI 14:47
PROVIDERS: PCP Nurse Practitioner Family; Referring Provider Nurse Practitioner Family; Visit Provider Nurse Practitioner Family
DX: Z12.31 Encounter for screening mammogram for malignant neoplasm of breast (principal)
CPT/HCPCS: 77063; 77067

== ENCOUNTER → 2023-10-16 | Outpatient (CLI) | payer MEDICARE, SELFPAY ==
[2023-10-16 10:27] LABS: Cholesterol 239 mg/dL (200); High Density Lipoprotein 92 mg/dL; Triglycerides 54 mg/dL; Very Low Density Lipoprotein 11 mg/dL (5-40)
== END | disposition home or self-care (01) ==
LOC: MTLAB 08:36
PROVIDERS: PCP Nurse Practitioner Family; Referring Provider Nurse Practitioner Family; Visit Provider Nurse Practitioner Family
DX: E78.00 Pure hypercholesterolemia, unspecified (principal)
CPT/HCPCS: 36415; 80061

== ENCOUNTER → 2024-06-22 | Outpatient (CLI) | payer MEDICARE, SELFPAY ==
[2024-06-22 11:23] LABS: Absolute Lymphocyte Count 1.29 X10^3/uL (0.83-4.51); Absolute Neutrophil Count 3.1 X10^3/uL (2.0-7.7); Basophil# 0.05 X10^3/uL; Eosinophil# 0.14 X10^3/uL; Eosinophils% 2.7 % (0-5); Hematocrit 47.4 % (37-47); Hemoglobin 15.7 g/dL (12.0-15.0); Lymphocyte # 1.29 X10^3/ul (0.83-4.51); Lymphocyte % 25.1 % (19-41); Mean Corp Hgb Conc 33.1 g/dL (32-36); Mean Corpuscular Hgb 31.2 pg (27.0-32.0); Mean Corpuscular Volume 94.2 fL (81-99); Mean Platelet Vol. 12.4 fl (6.2-12.0); Monocyte# 0.52 X10^3/uL; Monocyte% 10.1 % (0-10); NRBC Flagged by Analyzer 0 % (0-5); Neutrophil % 60.5 % (47-70); Platelet Count 246 K/mm3 (150-450); RBC Distribution Width CV 12.8 % (11.6-14.6); RBC Distribution Width SD 44.3 fl (35.1-43.9); Red Blood Count 5.03 M/mm3 (4.2-5.4); White Blood Count 5.1 K/mm3 (4.4-11.0)
[2024-06-22 13:07] LABS: ALB/GLOB Ratio 2.3 RATIO (0.9-2.4); AST(SGOT) 19 U/L (<=31); Alanine Aminotransfer ALT/SGPT 21 U/L (<=34); Albumin, Serum 4.4 g/dL (3.4-4.8); Alkaline Phosphatase 105 U/L (35-104); Anion Gap 10 (5-15); BUN 18 mg/dL (4-19); BUN/Creat Ratio 23.9 RATIO (10-20); Calcium,Total 9.5 mg/dL (7.6-11.0); Carbon Dioxide 24.7 mmol/L (21.0-32.0); Chloride 99 mmol/L (98-108); Creatinine, Serum 0.76 mg/dL (0.70-1.20); EST Glomerular Filtration Rate 85 (>60); Glucose 108 mg/dL (70-99); Potassium 5.5 mmol/L (3.3-5.1); Protein, Total 6.4 g/dL (5.9-8.4); Sodium Level 133 mmol/L (133-145); Total Bilirubin 0.59 mg/dL (0.00-1.30)
[2024-06-22 13:09] LABS: Estradiol 5.6 pg/mL; Free T3 2.8 pg/mL (2.18-3.98); Thyroid Stim Hormone (TSH) 0.544 uIU/mL (0.300-4.200); Vitamin D,25 Hydroxy 81.4 ng/mL (30-100)
[2024-06-23 04:07] LABS: PROGESTERONE 1.1 ng/mL (.)
[2024-06-23 08:09] LABS: DHEA Sulfate 89.8 ug/dL (20.4-186.6); Thyroid Peroxidase AB 16 IU/mL (0-34)
== END | disposition home or self-care (01) ==
LOC: MTLAB 08:00
PROVIDERS: PCP Nurse Practitioner Family
DX: E03.9 Hypothyroidism, unspecified (principal); N95.1 Menopausal and female climacteric states; E55.9 Vitamin D deficiency, unspecified
CPT/HCPCS: 36415; 80053; 82306; 82627; 82670; 84144; 84403; 84439; 84443; 84481; 85025; 86376; 82626

== ENCOUNTER → 2024-08-31 | Outpatient (CLI) | payer MEDICARE, SELFPAY ==
--- OUTSIDE RECORDS SUMMARY | 2024-08-31 07:21 | XMS RPT_ITS | CCD ---
Author Organization [facility]ini[facility] Care Team Providers Care Toddler Teacher Name Role Phone Roly Rahman Unavailable Fast, Tata A Unavailable Eron Bocanegra Unavailable Fast, Tata A Unavailable Slarb, Mary Ann Unavailable Unavailable Ciesa, Melba Unavailable Unavailable Unavailable Genet Cameron Unavailable Unavailable Unavailable Unavailable Heath Randall Unavailable Unavailable Heath Mackay Unavailable Unavailable Mirtha Ackerman Unavailable Unavailable Unavailable Unavailable Roly Rahman MD Unavailable Fast DO, Tata A Unavailable Dr. Eron Bocanegra Unavailable Fast DO, Tata A Unavailable Ciesa TIFFANI Melba Unavailable Heath Mackay LPN Unavailable Unavailable Unavailable Unavailable Fast DO, Tata A Unavailable Stacey Long LPN Unavailable Unavailable Ciesa, Jennifer Unavailable Ciesa, Jennifer Unavailable Unavailable Slarb FRANKLYN, Mary Ann Unavailable Unavailable Antonina Wilson CNP Unavailable Ciesa Jennifer Unavailable Fast DO, Tata A Referring Unavailable Antonina Wilson CNP Attending Unavailable Antonina Wilson CNP Consulting Unavailable Antonina Wilson CNP Unavailable Viral Carter MD Unavailable Steve DUNN-CAntonina Primary Care Provider DANNIE CHINO Attending Provider DANNIE CHINO Referring Provider Yevgeniy HERNDON, Dr. Elkins Other Provider [phone] Antonina Wilson Referring Unavailable Antonina Wilson Primary Care Unavailable Antonina Wilson Attending Unavailable Antonina Wilson Primary Care Unavailable Severo Vuong Consulting Unavailable RADHA, STE1 Attending Unavailable RADHA, ERICA1 Referring Unavailable Antonina Wilson Primary Care Unavailable Antonina Wilson Attending Unavailable Antonina Wilson Referring Unavailable Antonina Wilson Referring Unavailable Antonina Wilson Primary Care Unavailable Antonina Wilson Attending Unavailable Allergies Allergy Classification Reported Allergen(s) Allergy Type Date of Onset Reaction(s) Facility (3 sources) Lisinopril Drug Allergy Cough [facility]; [facility] Work Phone: Medications Current Medications Medication Drug Class(es) Dates Sig (Normalized) Sig (Original) [place] (Nk) (4 sources) Start: 03-31-2021 [place] (Nk) A ctive March 31, 2021 1:00am Start: 03-31-2021 [place] (Nk) A ctive March 31, 2021 12:00am Completed/Discontinued Medications Medication Drug Class(es) Dates Sig (Normalized) Sig (Original) allergy eye drops (14 sources) allergy eye drop s Active amoxicillin 875 mg / clavulanate 125 mg oral tablet (20 sources) Penicillin-class Antibacterial Start: 03-31-2021 End: 04-10-2021 Amoxicillin-Pot Clavulanate 875-125 mg tablet Discontinued 1 {tbl} PO Q12H 28 12March 31, 2021 1:00am April 09, 2021 1:00am April 10, 2021 1:02am Start: 03-31-2021 End: 04-10-2021 take 1 tablet by mouth every twelve hours Amoxicillin-Pot Clavulanate Discontinued 1 TABLET PO Q12H 28 12March 31, 2021 1:00am April 10, 2021 1:02am Start: 07-25-2020 End: 08-08-2020 take 1 tablet by mouth every twelve hours Augmentin 500-125 MG Oral Tablet 1 (one) Tablet q12 hr for 14 days Quantity: 28 {Tablet} Refills: 0 Ordered: 25-Jul-2020 Jennifer Espino Start : 25-Jul-2020 End : 08-Aug-2020 Inactive Start: 03-20-2019 End: 04-03-2019 take 1 tablet by mouth every twelve hours Augmentin 500-125 MG Oral Tablet 1 (one) Tablet q12 hr for 14 days Quantity: 28 {Tablet} Refills: 0 Ordered: 20-Mar-2019 Jennifer Espino CNP Start : 20-Mar-2019 End : 03-Apr-2019 Inactive Start: 02-28-2016 End: 10-29-2018 take 1 tablet by mouth twice daily Augmentin 875-125 MG Oral Tablet 1 (one) Tablet bid for 0 days Quantity: 28 {Tablet} Refills: 0 Ordered: 29-Oct-2018 Heath Mackay LPN Start : 28-Feb-2016 End : 29-Oct-2018 Inactive brompheniramine maleate 0.4 mg/ml / dextromethorphan hydrobromide 2 mg/ml / pseudoephedrine hydrochloride 6 mg/ml oral solution (20 sources) alpha-Adrenergic Agonist, Uncompetitive N-zbxpgo-G-aspartate Receptor Antagonist, Sigma-1 Agonist Start: 02-28-2016 End: 10-29-2018 take 10 mL by mouth every four hours as needed Bromfed DM 30-2-10 MG/5ML Oral Syrup 10 Milliliter q4hr prn for 0 days Quantity: 120 {Milliliter} Refills: 0 Ordered: 29-Oct-2018 Heath Mackay LPN Start : 28-Feb-2016 End : 29-Oct-2018 Inactive Comments: Max 40ml per day Comment on above: Max 40ml per day budesonide 0.032 mg/actuat metered dose nasal spray (20 sources) Corticosteroid Start: 11-15-2006 End: 09-17-2007 RHINOCORT AQUA, 32MCG/ACT (Nasal Suspension) 2 (two) Suspension Daily for 0 days Refills: 0 Ordered: 15-Nov-2006 Deandra Membreno Start : 15-Nov-2006 End : 17-Sep-2007 Discontinued Calcium (19 sources) Phosphate Binder, Calcium End: 11-11-2018 take 2 tablets by mouth once daily Calcium 600 MG Oral Tablet 2 QD for 0 days Refills: 0 Ordered: 3-Sep-2019 Genet Cameron End : 11-Nov-2018 Inactive take 2 tablets by mouth once ladonna ly CALCIUM, 600MG (Oral Tablet) 2 QD for 0 days Refills: 0 Ordered: 19-Sep-2011 Mary Ann Cee LPN Active calcium carbonate 1500 mg oral tablet (5 sources) End: 11-11-2018 take 2 tablets by mouth once daily Calcium 600 MG Oral Tablet 2 QD for 0 days Refills: 0 Ordered: 11-Nov-2018 Genet Cameron End : 11-Nov-2018 Inactive cetirizine hydrochloride 10 mg oral capsule (20 sources) Histamine-1 Receptor Antagonist take 1 capsule by mouth once daily ZYRTEC ALLERGY, 10MG (Oral Capsule) 1 cap qd (10 MG) Inactive cholecalciferol 0.025 mg chewable tablet (20 sources) Vitamin D Start: 05-05-2014 End: 11-11-2018 take 2 tablets by mouth once daily Vitamin D3 1000 UNIT Oral Tablet Chewable 2 (two) Tablet Chewable Tablet Chewable qd for 0 days Quantity: 60 {Tablet} Refills: 0 Ordered: 11-Nov-2018 Genet Cameron Start : 05-May-2014 End : 11-Nov-2018 Inactive take 1 capsule by [facility] once daily Vitamin D3 125 MCG (5000 UT) Oral Capsule daily (125 MCG (5000 UT)) Active Comments: 5000 units daily spring/summer and fall End: 11-11-2018 take 1 tablet by mouth once daily VITAMIN D, 400UNIT (Oral Tablet) 1 QD for 0 days Refills: 0 Ordered: 11-Nov-2018 Genet Cameron End : 11-Nov-2018 Discontinued Comments: This order discontinued per [facility]. take 2 tablets by [facility] once daily Vitamin D3 5000 UNIT Oral Capsule 2 tablet PO daily (5000 UNIT) Active Comment on above: This order discontin ued per [facility]. 5000 units daily spr /summer and fall codeine phosphate 2 mg/ml / guaiFENesin 20 mg/ml oral solution (20 sources) Opioid Agonist Start: 02-27-20 13 End: 03-20-19 14 CHERATUSSIN AC, 100-10MG/5ML (Oral Syrup) 1 Syrup 1-2 tsp every 6hours prn for 0 days Quantity: 8 {Ounce(s)} Refills: 0 Ordered: 20-Mar-2013 BETTINA Barreto LPN Start : 26-Feb-2013 End : 20-Mar-2013 Inactive Comments: eight Comment on above: eight desloratadine 5 mg oral tablet (20 sources) Histamine-1 Receptor Antagonist Start: 01-02-20 16 End: 11-12-19 19 take 1 tablet by mouth once daily Desloratadine 5 MG Oral Tablet 1 (one) Tablet Tablet daily for 0 days Quantity: 30 {Tablet} Refills: 3 Ordered: 11-Nov-2018 Genet Cameron Start : 02-Jan-2016 End : 11-Nov-2018 Inactive Start: 06-24-2015 End: 01-02-2016 take 1 tablet by mouth once daily Desloratadine 5 MG Oral Tablet Dispersible 1 (one) Tablet Disperse daily for 30 days Quantity: 30 {Tablet} Refills: 1 Ordered: 02-Jan-2016 Leticia Damian RN Start : 24-Jun-2015 End : 02-Jan-2016 Inactive diphenhydrAMINE hydrochloride 25 mg oral capsule (16 sources) Histamine-1 Receptor Antagonist Start: 07-14-2019 End: 02-01-2020 take 1 capsule by mouth every eight hours as needed Benadryl Allergy 25 MG Oral Capsule 1 (one) Capsule q8hrs prn for 0 days Quantity: 30 {Capsule} Refills: 0 Ordered: 01-Feb-2020 Heath Mackay LPN Start : 14-Jul-2019 End : 01-Feb-2020 Inactive fexofenadine hydrochloride 180 mg oral tablet (20 sources) Histamine-1 Receptor Antagonist Start: 03-20-2013 End: 11-11-2018 take 1 tablet by mouth once daily Melia Allergy 180 MG Oral Tablet 1 Tablet Tablet daily for 0 days Quantity: 30 {Tablet} Refills: 0 Ordered: 11-Nov-2018 Genet Cameron Start : 20-Mar-2013 End : 11-Nov-2018 Inactive fluticasone propionate 0.05 mg/actuat metered dose nasal spray (20 sources) Corticosteroid Start: 06-24-2015 End: 11-11-2018 take 2 puff(s) nasal route once daily Flonase Allergy Relief 50 MCG/ACT Nasal Suspension 1 (one) Suspension UAD for 30 days Quantity: 1 {Bottle} Refills: 3 Ordered: 11-Nov-2018 Genet Cameron Start : 24-Jun-2015 End : 11-Nov-2018 Inactive Comments: 2 puffs each nostril daily Comment on above: 2 puffs each nostril daily ibandronic acid 150 mg oral tablet (20 sources) Bisphosphonate Start: 05-05-2014 End: 02-28-2016 take 1 tablet by mouth every month Boniva 150 MG Oral Tablet 1 Tablet q monthly for 0 days Quantity: 3 {Tablet} Refills: 3 Ordered: 28-Feb-2016 Mary Ann eCe LPN Start : 05-May-2014 End : 28-Feb-2016 Discontinued levoFLOXacin 500 mg oral tablet (20 sources) Quinolone Antimicrobial Start: 03-20-2013 End: 05-05-2014 take 1 tablet by mouth once daily LEVAQUIN, 500MG (Oral Tablet) 1 (one) Tablet Tablet qd for 0 days Quantity: 14 {Tablet} Refills: 0 Ordered: 05-May-2014 Deandra Membreno Start : 20-Mar-2013 End : 05-May-2014 Discontinued Comments: ignore Comment on above: ignore lisinopril 5 mg oral tablet (20 sources) Angiotensin Converting Enzyme Inhibitor Start: 01-29-2022 End: 03-07-2022 take 1 tablet by mouth once daily lisinopriL 5 mg oral tablet 1 Tablet daily for 0 days Quantity: 30 {Tablet} Refills: 1 Ordered: 07-Mar-2022 Mary Ann Cee LPN Start : 29-Jan-2022 End : 07-Mar-2022 Discontinued Start: 01-01-2022 take 1 tablet by paty once daily Lisinopril 5 MG Oral Tablet 1 Tablet daily for 0 days Quantity: 30 {Tablet} Refills: 1 Ordered: 01-Jan-2022 Antonina Wilson CNP Start : 01-Jan-2022 Active Start: 04-22-2013 End: 02-28-2016 take 1 tablet by mouth once daily Lisinopril 5 MG Oral Tablet 1 Tablet qd for 0 days Quantity: 90 {Tablet} Refills: 3 Ordered: 28-Feb-2016 Mary Ann Cee LPN Start : 22-Apr-2013 End : 28-Feb-2016 Discontinued loratadine 10 mg oral capsule (20 sources) Start: 11-12-2008 End: 12-21-2009 take 1 capsule by mouth once daily CLARITIN, 10MG (Oral Capsule) 1 (one) Capsule daily for 0 days Quantity: 30 {Capsule} Refills: 3 Ordered: 21-Dec-2009 Deandra Membreno Start : 12-Nov-2008 End : 21-Dec-2009 Inactive take 1 tablet by mouth once murray y Loratadine 10 MG Oral Tablet 1 tablet PO daily (10 MG) Inactive losartan potassium 25 mg oral tablet (4 sources) Angiotensin 2 Receptor Ebony Start: 11-06-2022 take 1 tablet by mouth once daily losartan 25 mg oral tablet 1 (one) tablet daily for 90 days Quantity: 90 {Tablet} Refills: 3 Ordered: 06-Nov-2022 Steve TIFFANIAntonina Start : 06-Nov-2022 Active Start: 05-01-2022 take 1 tablet by paty th once daily losartan 25 mg oral tablet 1 (one) tablet daily for 0 days Quantity: 30 {Tablet} Refills: 6 Ordered: 01-May-2022 Slaannie ESTESMary Ann Start : 01-May-2022 Active magnesium citrate 100 mg oral tablet (20 sources) take 1 tablet by mouth once daily Magnesium Citrate 100 MG Oral Tablet 100-300 mg tablet PO daily (100 MG) Active magnesium oxide 400 mg oral tablet (20 sources) take 1 tablet by mouth once daily MAGNESIUM OXIDE, 400MG (Oral Tablet) 1 tab daily (400 MG) Inactive meloxicam 7.5 mg oral tablet (20 sources) Nonsteroidal Anti-inflammatory Drug Start: 2 End: 2 take 1 tablet by mouth twice daily MOBIC, 7.5MG (Oral Tablet) 1 (one) Tablet bid for 0 days Quantity: 180 {Tablet} Refills: 3 Ordered: 19-Sep-2011 Deandra Membreno Start : 19-Sep-2011 End : 19-Sep-2011 Discontinued Meloxicam 15mg I nactive Meloxicam 15mg A ctive MULTIVITAMINS (Oral Tablet) (20 sources) End: 11-11-2018 take 1 tablet by mouth once daily MULTIVITAMINS (Oral Tablet) 1 tab qd for 0 days Refills: 0 Ordered: 11-Nov-2018 Genet Cameron End : 11-Nov-2018 Discontinued Comments: This order discontinued per [facility]. take 1 tablet by mouth once murray y MULTIVITAMINS (Oral Tablet) 1 tab qd for 0 days Refills: 0 Ordered: 22-Feb-2009 Deandra Membreno Active Comment on above: This order discontin ued per [facility]. nitrofurantoin, macrocrystals 25 mg / nitrofurantoin, monohydrate 75 mg oral capsule (12 sources) Nitrofuran Antibacterial Start: End: take 1 capsule by mouth twice daily Macrobid 100 MG Oral Capsule 1 (one) Capsule bid for 7 days Quantity: 14 {Capsule} Refills: 0 Ordered: 01-Apr-2020 Jennifer Espino Start : 01-Apr-2020 End : 08-Apr-2020 Inactive ofloxacin 3 mg/ml ophthalmic solution (20 sources) Quinolone Antimicrobial Start: End: Ocuflox 0.3 % Ophthalmic Solution 1-2 Metric Drop q 2 hr x 4h x 2 days, then 1-2 gtts qid x 5 days for 0 days Quantity: 1 {Bottle} Refills: 0 Ordered: 29-Oct-2018 Heath Mackay LPN Start : 28-Feb-2016 End : 29-Oct-2018 Inactive phenazopyridine hydrochloride 100 mg oral tablet (12 sources) Start: End: take 1 tablet by mouth three times daily Pyridium 100 MG Oral Tablet 1 (one) Tablet tid for 2 days Quantity: 6 {Tablet} Refills: 2 Ordered: 25-Jul-2020 Heath Mackay LPN Start : 11-Apr-2020 End : 25-Jul-2020 Inactive polyethylene glycol 3350 18630 mg powder for oral solution (8 sources) Osmotic Laxative Start: MiraLax Mix-In [place] 17 GM Oral Packet 1 (one) Packet Tad for 0 days Quantity: 1 {Packet} Refills: 0 Ordered: 25-Jul-2020 Heath Mackay LPN Start : 11-Apr-2020 Active potassium bicarbonate 99 mg oral capsule (20 sources) End: take 1 capsule by mouth every week POTASSIUM BICARBONATE, 99MG (Oral Capsule) 1 cap weekly for 0 days Refills: 0 Ordered: 21-Dec-2009 Deandra Membreno End : 21-Dec-2009 Inactive predniSONE 10 mg oral tablet (16 sources) Start: End: take 3 tablets by mouth once daily at mealtime predniSONE 10 MG Oral Tablet 3 (three) Tablet daily for 7 days Quantity: 21 {Tablet} Refills: 0 Ordered: 14-Jul-2019 Jennifer Espino Start : 14-Jul-2019 End : 21-Jul-2019 Inactive Comments: with food Comment on above: with food progesterone 50 mg/ml injectable solution (20 sources) Progesterone proGESTerone 50 mg/mL intramuscular oil 80 bedtime (50 mg/mL) Active Comments: Dr. Vuong inject 1 mg by intra muscular injection at bedtime Progesterone 50 MG/ML Intramuscular Oil 50mg/0.5ml bedtime (50 MG/ML) Active Comments: Dr. Vuong Comment on above: Dr. Vuong Scudgnjuweht44.5/Testosteron e 0.5 (15 sources) Xxmzamfjstbu22.5 /Testosterone 0.5 0.5mg on skin daily Inactive Baouumzlakof55.5 /Testosterone 0.5 0.5mg on skin daily Active risedronate sodium 35 mg oral tablet (20 sources) Start: 05-09-2012 End: 02-26-2013 take 1 tablet by mouth every week ATELVIA, 35MG (Oral Tablet Delayed Release) 1 (one) Tablet DR once a week for 0 days Quantity: 4 {Tablet_DR} Refills: 3 Ordered: 26-Feb-2013 BETTINA Barreto LPN Start : 09-May-2012 End : 26-Feb-2013 Inactive Start: 04-08-2012 End: 04-08-2012 take 1 tablet by mouth every month ACTONEL, 150MG (Oral Tablet) 1 (one) Tablet q month for 0 days Quantity: 3 {Tablet} Refills: 3 Ordered: 08-Apr-2012 Kathi De Guzman MD Start : 08-Apr-2012 End : 08-Apr-2012 Inactive Comments: will try Boniva 04-08-12 Comment on above: will try Boniva 04-08 Selenium 200 MCG Oral Capsule (20 sources) take 1 tablet by mouth once daily Selenium 200 MCG Oral Capsule 1 tablet PO daily (200 MCG) Active sulfamethoxazole 800 mg / trimethoprim 160 mg oral tablet (12 sources) Dihydrofolate Reductase Inhibitor Antibacterial, Sulfonamide Antimicrobial Start: End: take 1 tablet by mouth every twelve hours Bactrim DS 800-160 MG Oral Tablet 1 (one) Tablet q 12 hrs for 7 days Quantity: 14 {Tablet} Refills: 0 Ordered: 11-Apr-2020 Jennifer Espino Start : 11-Apr-2020 End : 18-Apr-2020 Inactive Testosterone (14 sources) Androgen Testosterone 1mg / 0.5ml bedtime Active Comments: Dr. Vuong Comment on above: Dr. Vuong thyroid (alf) 30 mg oral tablet (3 sources) take 1 mg by mouth once daily [place] Thyroid 30 mg oral tablet daily (30 mg) Active triamcinolone acetonide 0.055 mg/actuat metered dose nasal spray (20 sources) Corticosteroid Start: 010 End: 010 NASACORT AQ, 55MCG/ACT (Nasal Aerosol Solution) 2 (two) Aerosol Soln each nostril once daily for 0 days Quantity: 1 {Aerosol_Soln} Refills: 0 Ordered: 21-Dec-2009 Deandra Membreno Start : 29-Mar-2009 End : 21-Dec-2009 Inactive Start: 03-29-2009 End: 12-21-2009 NASACORT AQ, 55MCG/ACT (Nasa l Aerosol Solution) 2 (two) Aerosol Soln each nostril once daily for 0 days Quantity: 1 {Aerosol_Soln} Refills: 0 Ordered: 21-Dec-2009 Deandra Membreno Start : 29-Mar-2009 End : 21-Dec-2009 Inactive vitamin b12 0.5 mg oral tablet (20 sources) Vitamin B12 End: 05-05-2014 take 1 tablet by mouth twice daily VITAMIN B-12, 500MCG (Oral Tablet) 1 tab bid for 0 days Refills: 0 Ordered: 05-May-2014 Deandra Membreno End : 05-May-2014 Inactive vitamin b6 100 mg oral tablet (20 sources) End: 05-05-2014 take 1 tablet by mouth twice daily VITAMIN B-6, 100MG (Oral Tablet) 1 tab bid for 0 days Refills: 0 Ordered: 05-May-2014 Deandra Membreno End : 05-May-2014 Inactive vitamin d 400 unt oral tablet (8 sources) End: 11-11-2018 take 1 tablet by mouth once daily VITAMIN D, 400UNIT (Oral Tablet) 1 QD for 0 days Refills: 0 Ordered: 11-Nov-2018 Genet Cameron End : 11-Nov-2018 Discontinued Comments: This order discontinued per [facility]. Comment on above: This order discontinued per [facility]. vitamin k2 0.1 mg oral capsule (20 sources) take 1 tablet by mouth once daily Vitamin K2 100 MCG Oral Capsule 1 tablet daily (100 MCG) Active take 1 tablet by mouth once murray y Vitamin K2 100 MCG Oral Capsule 1 tablet daily (100 MCG) Active Problems Active Problems Problem Classification Problem Date Documented Date Episodic/Chronic Abdominal pain (20 sources) Pain in pelvis Episodic Allergic reactions (20 sources) Contact dermatitis due to poison claudia; Translations: [Contact dermatitis due to poison claudia (Renamed from Poison claudia)] Resolved : 02-21-20 21 2019 Episodic Comment on above: wants allergy testin gNo concerns of needing epi pen but reviewed Disorders of lipid metabolism (20 sources) Other and unspecified hyperlipidemia; Translations: [Hyperlipidemia] Onset: 11-18-19 Resolved : 11-14-19 22 02-28-2016 Chronic Comment on above: better with diet and exrepeatLDL 101 does modified keto did modified keto did modified keto in past Disorders of teeth and jaw (20 sources) Temporomandibular joint disorder; Translations: [Temporomandibular joint disease] Resolved : 11-12-19 19 02-28-2016 Episodic Essential hypertension (20 sources) Benign essential hypertension; Translations: [Hypertensive disorder] Resolved : 11-12-19 19 02-28-2016 Chronic Comment on above: off medications, on some medication 7 years agoBP today 130/70 off medications, on some medication 7 years agoBP today 150/90, Takes testosterone at night gets compound at [place] Dr. Vuong, [facility] would restart a bp m ed.off medications x7 years agoBP today 150/90, Takes testosterone at night [facility], [facility] losartan 25mg daily effective, reviewed BP log (restarted in 2021)was off medications, was taking testosterone compound at [place] Dr. Vuong, [facility] losartan 25mg daily effective, reviewed BP logoff medications x7 years agoBP today 150/90, Takes testosterone at night gets compound at [place] Dr. Vuong, [facility] Genitourinary symptoms and ill-defined conditions (20 sources) Urinary frequency; Translations: [Increased frequency of urination] Resolved : 02-21-20 21 04-11-2020 Episodic Immunizations and screening for infectious disease (20 sources) Need for prophylactic vaccination and inoculation against influenza; Translations: [Needs influenza immunization] Resolved : 02-27-20 13 12-14-2014 Episodic Inflammation; infection of eye (except that caused by tuberculosis or sexually transmitteddisease) (20 sources) Conjunctivitis; Translations: [Conjunctivitis] 02-28-2016 Episodic Malaise and fatigue (18 sources) Fatigue; Translations: [Fatigue] 11-21-2021 Episodic Comment on above: call if no improveme nt after the above interventionsthyroid studies were normal end of July. Taking multiple vitamins and minerals. Discussed sleep hygiene and limiting stimulants, modifications. Other and unspecified benign neoplasm (20 sources) Polyp of colon; Translations: [Colon polyp] 02-28-2016 Episodic Comment on above: due 2017 Other and unspecified benign neoplasm (20 sources) Personal history of colonic polyps; Translations: [Colon Polyps, History of] 02-28-2016 Episodic Comment on above: hyperplastic- repeat in 5 years(2011) hyperplastic- had 20 15, repeat 10yrs Other bone disease and musculoskeletal deformities (20 sources) Osteopenia; Translations: [Osteopenia] 02-28-2016 Episodic Comment on above: Repeat BMD and see i f she can come off BonivaVitamin D 800 unitsCalcium 1200 mg calciumon and off boniva 5-7 years, not using it for the last 6 months and wants to get off it Repeat BMD and see i f she can come off BonivaVitamin D 800 units Calcium 1200 mg calcium, vitamin K and seleniumon and off boniva 5-7 years, not using it for the last 6 months and wants to get off it Other circulatory disease (20 sources) Elevated blood-pressure reading without diagnosis of hypertension; Translations: [Elevated blood pressure (not hypertension)] Resolved : 04-22-19 14 10-29-2018 Episodic Other circulatory disease (20 sources) H/O: hypertension; Translations: [History of hypertension] 11-11-2018 Episodic Comment on above: encouraged to self m onitor -encouraged to self monitor, call if systolic remains above 130.stable, not at goal but better. declines medications but we discussed. Other connective tissue disease (20 sources) Plantar fasciitis; Translations: [Plantar fasciitis] Resolved : 05-05-19 15 10-29-2018 Episodic Other connective tissue disease (20 sources) Lateral epicondylitis; Translations: [Tennis elbow] Resolved : 02-21-20 21 11-11-2018 Episodic Comment on above: being treated by [facility] Other ear and sense organ disorders (20 sources) Otalgia; Translations: [Otalgia, unspecified ear] Resolved : 12-22-19 10 01-25-2015 Episodic Comment on above: left ear Other ear and sense organ disorders (2 sources) Pain of ear structure; Translations: [Otalgia, unspecified ear] Resolved : 12-22-19 10 01-25-2015 Episodic Comment on above: left ear Other female genital disorders (20 sources) Disorder of female genital organs; Translations: [Other specified conditions associated with female genital organs and menstrual cycle] Resolved : 09-17-1901-26-2015 Episodic Other gastrointestinal disorders (20 sources) Constipation; Translations: [Constipation] 02-28-2016 Episodic Comment on above: milk of magnesia eat fruits that start with P make sure alot water 5-6 glasses a day. increase activity. can try prune juice at night.Miralax in apple juiceMetamucilhard BM, colonoscopy 2006, due 2016, ?polyps -drink plenty of abdifatah er-Miralax effective, no current issueshard BM, colonoscopy 2006, 2016, ?polyps Other inflammatory condition of skin (20 sources) Itching ; Translations: [Itching] Resolved : 02-21-2008-04-2019 Episodic Other lower respiratory disease (20 sources) Cough; Translations: [Cough] Resolved : 11-12-1902-28-2016 Episodic Other non-traumatic joint disorders (20 sources) Joint pain; Translations: [Pain in unspecified joint] Resolved : 09-19-19 12 01-24-2015 Episodic Other nutritional; endocrine; and metabolic disorders (20 sources) Body mass index 25-29 - overweight; Translations: [Overweight] Resolved : 11-12-19 19 02-28-2016 Chronic Comment on above: Weuight gone up from 164 to 174 poundsBMI 25.88DIET AND EXERCISE: -health recomendations that are to be followed unless otherwise told unable to do are 10,000 steps a day (can buy a pedometer at sport stores), -5 days of week of 30 mins of cardiotraining (increase heartrate around 110-130 and sweating in 10 min), twice a week of 15 min weight lifting. Keep track of daily food intake, watch portion control, must make lifestyle change and not just diet.-limit sugars to 20-30 grams a day. Avoid soda, pop and white starches. Replace refined grains (white bread, white rice, refined sweet cereal with whole grain(whole wheat, whole grain, brown rice, whole grain cereal, oatmeal, barley, bulgar, popcorn oat cereal,muesli cereal, rye quinoa, whole grain anything) Avoid pasta, potatoes, corn syrups. Avoid pasta if you have to have any use spiralizer/spagetti squash/zuchini for pasta and quinoa for rice.(recommend 1/3 of grains whole grains, about 30 gm a day)-Avoid red meat, processed meats. Clean eating is recommend with lean protein like fish, chicken, turkey, lean redmeat (only 2-3 servings a week), baked broiled or grilled.1-2 servings of oily fish per week is recommended to decrease cardiovascular disease.- Type of fat is more important than total fat.Trans fats are linked to coronary heart disease. Saturated fats to avoid are meat, dairy, chips, pastries, hydrogenated veg. oilPolyunsaturated fats are protective , in foods like nuts, avocados, olives- 2 cups of fruit and 2 cups of veggies a day ,double the vegetables over fruits. Fruits and vegetables are a high source of fiber-Eat from refrigerator not pantry. Shop from the outside aisle and produce and not inner aisle.Weigh yourself daily, lose 1-2 pounds per week. In three months if unable to loose atleast 4 pounds a month, then need to talk about further treatment strategies.Can join [facility] programme with [facility] for nutrition counselling.Does not exerciseHealthy food:sugar weakness icecream, cookies, Donuts from [employer], sugar cravingAlmonds a lot 1 cupNo soda popWild rice Pasta noChicken brocolli greenm beanBaked potato 1-2 per weeek, lots of buttercoconut oilNo processed meatBaked chickenNo dairy(bloated Other nutritional; endocrine; and metabolic disorders (20 sources) Personal history of other endocrine, nutritional and metabolic disease; Translations: [H/O: hyperthyroidism] 11-11-2018 Episodic Comment on above: no medslevels checke d Other nutritional; endocrine; and metabolic disorders (20 sources) Body mass index 25-29 - overweight; Translations: [BMI 27.0-27.9,adult] Resolved : 11-14-19 22 07-25-2020 Episodic Comment on above: Weuight gone up from 164 to 174 poundsBMI 25.88DIET AND EXERCISE: -health recomendations that are to be followed unless otherwise told unable to do are 10,000 steps a day (can buy a pedometer at sport stores), -5 days of week of 30 mins of cardiotraining (increase heartrate around 110-130 and sweating in 10 min), twice a week of 15 min weight lifting. Keep track of daily food intake, watch portion control, must make lifestyle change and not just diet.-limit sugars to 20-30 grams a day. Avoid soda, pop and white starches. Replace refined grains (white bread, white rice, refined sweet cereal with whole grain(whole wheat, whole grain, brown rice, whole grain cereal, oatmeal, barley, bulgar, popcorn oat cereal,muesli cereal, rye quinoa, whole grain anything) Avoid pasta, potatoes, corn syrups. Avoid pasta if you have to have any use spiralizer/spagetti squash/zuchini for pasta and quinoa for rice.(recommend 1/3 of grains whole grains, about 30 gm a day)-Avoid red meat, processed meats. Clean eating is recommend with lean protein like fish, chicken, turkey, lean redmeat (only 2-3 servings a week), baked broiled or grilled.1-2 servings of oily fish per week is recommended to decrease cardiovascular disease.- Type of fat is more important than total fat.Trans fats are linked to coronary heart disease. Saturated fats to avoid are meat, dairy, chips, pastries, hydrogenated veg. oilPolyunsaturated fats are protective , in foods like nuts, avocados, olives- 2 cups of fruit and 2 cups of veggies a day ,double the vegetables over fruits. Fruits and vegetables are a high source of fiber-Eat from refrigerator not pantry. Shop from the outside aisle and produce and not inner aisle.Weigh yourself daily, lose 1-2 pounds per week. In three months if unable to loose atleast 4 pounds a month, then need to talk about further treatment strategies.Can join [facility] programme with [facility] for nutrition counselling.Does not exerciseHealthy food:sugar weakness icecream, cookies, Donuts from [employer], sugar cravingAlmonds a lot 1 cupNo soda popWild rice Pasta noChicken brocolli greenm beanBaked potato 1-2 per weeek, lots of buttercoconut oilNo processed meatBaked chickenNo dairy(bloated Other nutritional; endocrine; and metabolic disorders (2 sources) Overweight Episodic Other nutritional; endocrine; and metabolic disorders (20 sources) Overweight in adulthood with body mass index of 25 or more but less than 30; Translations: [BMI 27.0-27.9,adult] Resolved : 08-16-19 23 11-14-2021 Episodic Other screening for suspected conditions (not mental disorders or infectious disease) (20 sources) Thyroid hormone tests abnormal; Translations: [Patient encounter status] Onset: 09-02-19 24 Resolved : 11-14-19 22 10-29-2018 Episodic Other upper respiratory disease (20 sources) Allergic rhinitis; Translations: [Allergic rhinitis] 02-28-2016 Chronic Comment on above: Flonase contStart de sloratidineworsening allergies in spring and fall. Other upper respiratory disease (20 sources) Allergy to pollen; Translations: [Hay fever] Resolved : 02-21-2011-11-2018 Chronic Comment on above: on loratadine Other upper respiratory disease (20 sources) Nasal sinus problem; Translations: [Sinus drainage] Resolved : 02-21-20 21 07-25-2020 Episodic Other upper respiratory disease (5 sources) Congestion of nasal sinus; Translations: [Nasal congestion] 01-21-2022 Episodic Other upper respiratory infections (20 sources) Chronic sinusitis; Translations: [Chronic sinusitis] Resolved : 02-21-2002-28-2016 Chronic Other upper respiratory infections (20 sources) Acute sinusitis; Translations: [Laryngitis] Onset: 03-29-19 Resolved : 11-12-1910-29-2018 Episodic Otitis media and related conditions (20 sources) Dysfunction of eustachian tube; Translations: [Dysfunction of eustachian tube] Resolved : 08-11-1902-26-2013 Episodic Residual codes; unclassified (20 sources) FH: Diabetes mellitus; Translations: [Family history of diabetes mellitus] Resolved : 02-21-2002-28-2016 Episodic Residual codes; unclassified (20 sources) Family history of diabetes mellitus Episodic Residual codes; unclassified (20 sources) Postmenopausal state; Translations: [Postmenopausal (Renamed from Postmenopausal status)] 11-11-2018 Episodic Residual codes; unclassified (20 sources) Non-smoker; Translations: [Nonsmoker] 07-25-2020 Episodic Spondylosis; intervertebral disc disorders; other back problems (20 sources) Prolapsed lumbar intervertebral disc; Translations: [Lumbar herniated disc] 11-11-2018 Chronic Comment on above: L4 and L5 Thyroid disorders (20 sources) Hyperthyroidism; Translations: [Hyperthyroidism] Onset: 06-26-19 Resolved : 02-21-2002-28-2016 Chronic Comment on above: tsh is goodSaw Dr Jacques lucio , on medication for 6 monthsRepeat TSH, T3, T4 Unclassified (20 sources) ARTHRALGIAS 719.40 Unclassified (20 sources) Colon polyp (211.3) Unclassified (20 sources) Unclassified (20 sources) Abnormal TSH (794.5) Unclassified (20 sources) Non-smoker; Translations: [Nonsmoker] 02-28-2016 Unclassified (20 sources) screening Resolved : 02-27-20 13 02-26-2013 Unclassified (20 sources) screen Resolved : 02-23-20 09 02-26-2013 Unclassified (20 sources) Elevated Blood Pressure(796.2) Unclassified (15 sources) Postmenopausal (Renamed from Postmenopausal status) Unclassified (20 sources) Hypercholesteremia Unclassified (20 sources) BMI 27.0-27.9,adult Unclassified (5 sources) Encounter for screening mammogram for breast cancer (Renamed from Encounter for screening mammogram for malignant neoplasm of breast) Past or Other Problems Problem Classification Problem Date Documented Date Episodic/Chronic Coronary atherosclerosis and other heart disease (13 sources) Coronary atherosclerosis and other heart disease Deficiency and other anemia (14 sources) Deficiency and other anemia Other upper respiratory disease (20 sources) Disorder of nasal sinus; Translations: [Sinus problem] Resolved: 9 11-11-2018 Episodic Residual codes; unclassified (13 sources) Needs influenza immunization; Translations: [Need for prophylactic vaccination and inoculation against influenza] Resolved: 3 12-14-2014 Episodic Spondylosis; intervertebral disc disorders; other back problems (20 sources) Sciatica; Translations: [Back problem] Resolved: 9 02-28-2016 Episodic Spondylosis; intervertebral disc disorders; other back problems (16 sources) Spondylosis; intervertebral disc disorders; other back problems Thyroid disorders (20 sources) Disorder of thyroid gland; Translations: [Thyroid disease] Resolved: 9 11-11-2018 Episodic Unclassified (20 sources) Well Woman Exam (V72.31) (Pap,Mammo,Routine Female) Unclassified (20 sources) Deliveries (Parity); Translations: [Deliveries (Parity)] 02-28-2016 Comment on above: 2 Unclassified (20 sources) Patient encounter status; Translations: [Encounter for screening colonoscopy] Resolved: 9 02-28-2016 Unclassified (20 sources) Hysterectomy, Total; Translations: [Hysterectomy, Total] 02-28-2016 Unclassified (20 sources) Pregnancies (); Translations: [Pregnancies ()] 02-28-2016 Comment on above: 2 Unclassified (20 sources) Unspecified Diagnosis 02-28-2016 Unclassified (15 sources) BMI 25.0-25.9,adult Unclassified (15 sources) Otalgia, unspecified (388.70) Unclassified (15 sources) Temporomandibular joint disease (524.60) Unclassified (14 sources) Encounter for screening for lipid disorder Unclassified (14 sources) Hay fever Unclassified (14 sources) History of hyperthyroidism Unclassified (12 sources) Tennis elbow Unclassified (7 sources) BMI 28.0-28.9,adult Unclassified (2 sources) Sinus drainage Urinary tract infections (11 sources) Urinary tract infections Results Test Name Value Interpretation Reference Range Facility DHEA Sulfateon 06-23-2024 DHEA SULFATE 89.8 ug/dL Normal 20.4-186.6 [facility] Comment on above: Order Comment: UNKN Performed By: #### L 3300.1500, L509.3001, L3300.6900, L501.9520, L501.14438, L801.2600, L100.0100, L506.0400, L506.1001, L500.4050, L3300.1750 #### [facility] [address] [place], [place], [id number] PROGESTERONE 4317on 06-24-19 PROGESTERONE 1.1 ng/mL Normal . [facility] Comment on above: Order Comment: N UNK Result Comment: Foll icular phase 0.1 - 0.9 Luteal phase 1.8 - 23.9 Ovulation phase 0.1 - 12.0 First trimester 11.0 - 44.3 Second trimester 25.4 - 83.3 Third trimester 58.7 - 214.0 Postmenopausal 0.0 - 0.1 Performed at: [employer] [id number] Lumber Straightener: Eron Jeffries PhD, Phone: [phone] Performed By: #### L 3300.1500, L509.3001, L3300.6900, L501.9520, L501.28544, L801.2600, L100.0100, L506.0400, L506.1001, L500.4050, L3300.1750 #### [facility] [address] [place], [place], [id number] Thyroid Peroxidase ABon 06-09 THYR PEROX AB 16 IU/mL Normal 0-34 [facility] Comment on above: Result Comment: Perf ormed at: [facility] [id number] [place], [place] [id number] Lumber Straightener: Eron Jeffries PhD, Phone: [phone] Performed By: #### L 3300.1500, L509.3001, L3300.6900, L501.9520, L501.93338, L801.2600, L100.0100, L506.0400, L506.1001, L500.4050, L3300.1750 #### [facility] [address] [place], [address] Absolute neutrophil counton 06-22-2024 Neutrophils (Bld) [#/Vol] 3.1 10*3/uL 2.0-7.7 [facility] Anion gap in Serum or Plasma on 06-22-2024 Anion gap [Moles/Vol] 10 mmol/L 5- [facility] BUN/creatinine ratioon 06-22 Urea nitrogen/Creatinine [Mass ratio] 23.9 mg/mg High 10- [facility] Basophil percentageon 2024 Basophils/100 WBC (Bld) 1.0 % 0-1 [facility] Bilirubin, totalon Bilirubin [Mass/Vol] 0.59 mg/dL 0.00-1.30 [facility] CBC W/Diff, Automatedon 06-09 Absolute Lymph 1.29 X10 3/uL Normal 0.83-4.51 [facility] Comment on above: Performed By: #### L 3300.1500, L509.3001, L3300.6900, L501.9520, L501.71468, L801.2600, L100.0100, L506.0400, L506.1001, L500.4050, L3300.1750 #### [facility] [address] [place], [address] Absolute Neut 3.1 X10 3/uL Normal 2.0-7.7 [facility] Comment on above: Performed By: #### L 3300.1500, L509.3001, L3300.6900, L501.9520, L501.96242, L801.2600, L100.0100, L506.0400, L506.1001, L500.4050, L3300.1750 #### [facility] [address] [place], [address] Basophils/100 WBC (Bld) 1.0 % Normal 0-1 [facility] Comment on above: Performed By: #### L 3300.1500, L509.3001, L3300.6900, L501.9520, L501.93576, L801.2600, L100.0100, L506.0400, L506.1001, L500.4050, L3300.1750 #### [facility] [address] [place], [address] Eosinophils/100 WBC (Bld) 2.7 % Normal 0-5 [facility] Comment on above: Performed By: #### L 3300.1500, L509.3001, L3300.6900, L501.9520, L501.66931, L801.2600, L100.0100, L506.0400, L506.1001, L500.4050, L3300.1750 #### [facility] [address] [place], [place], [phone] ([phone]) Erythrocyte distribution width (RBC) [Ratio] 12.8 % Normal 11.6-14.6 [facility] Comment on above: Performed By: #### L 3300.1500, L509.3001, L3300.6900, L501.9520, L501.03806, L801.2600, L100.0100, L506.0400, L506.1001, L500.4050, L3300.1750 #### [facility] [address] [place], [place], [phone] (297) Hematocrit (Bld) [Volume fraction] 47.4 % High 37-47 [facility] Comment on above: Performed By: #### L 3300.1500, L509.3001, L3300.6900, L501.9520, L501.82809, L801.2600, L100.0100, L506.0400, L506.1001, L500.4050, L3300.1750 #### [facility] [address] [place], [address] Hemoglobin (Bld) [Mass/Vol] 15.7 g/dL High 12.0-15.0 [facility] Comment on above: Performed By: #### L 3300.1500, L509.3001, L3300.6900, L501.9520, L501.08082, L801.2600, L100.0100, L506.0400, L506.1001, L500.4050, L3300.1750 #### [facility] [address] [place], [address] IG% 0.600 Normal 0.0-0.9 [facility] Comment on above: Result Comment: IG% - Immature Granulocytes (promyelocytes, myelocytes and metamyelocytes) > 1% indicates that a LEFT SHIFT is Present. Performed By: #### L 3300.1500, L509.3001, L3300.6900, L501.9520, L501.17296, L801.2600, L100.0100, L506.0400, L506.1001, L500.4050, L3300.1750 #### [facility] [address] [place], [address] Lymphocytes/100 WBC (Bld) 25.1 % Normal 19-41 [facility] Comment on above: Performed By: #### L 3300.1500, L509.3001, L3300.6900, L501.9520, L501.79273, L801.2600, L100.0100, L506.0400, L506.1001, L500.4050, L3300.1750 #### [facility] [address] [place], [address] MCH (RBC) [Entitic mass] 31.2 pg Normal 27.0-32.0 [facility] Comment on above: Performed By: #### L 3300.1500, L509.3001, L3300.6900, L501.9520, L501.47104, L801.2600, L100.0100, L506.0400, L506.1001, L500.4050, L3300.1750 #### [facility] [address] [place], [place], [phone] (227) MCHC (RBC) [Mass/Vol] 33.1 g/dL Normal 32-36 [facility] Comment on above: Performed By: #### L 3300.1500, L509.3001, L3300.6900, L501.9520, L501.84432, L801.2600, L100.0100, L506.0400, L506.1001, L500.4050, L3300.1750 #### [facility] [address] [place], [place], [phone] MCV (RBC) [Entitic vol] 94.2 fL Normal 81-99 [facility] Comment on above: Performed By: #### L 3300.1500, L509.3001, L3300.6900, L501.9520, L501.03786, L801.2600, L100.0100, L506.0400, L506.1001, L500.4050, L3300.1750 #### [facility] [address] [place], [place], [phone] (224) Monocytes/100 WBC (Bld) 10.1 % High 0-10 [facility] Comment on above: Performed By: #### L 3300.1500, L509.3001, L3300.6900, L501.9520, L501.53510, L801.2600, L100.0100, L506.0400, L506.1001, L500.4050, L3300.1750 #### [facility] [address] [place], [address] Neutrophils/100 WBC (Bld) 60.5 % Normal 47-70 [facility] Comment on above: Performed By: #### L 3300.1500, L509.3001, L3300.6900, L501.9520, L501.72090, L801.2600, L100.0100, L506.0400, L506.1001, L500.4050, L3300.1750 #### [facility] [address] [place], [address] Nucleated RBC (Bld) [#/Vol] 0 10*3/uL Normal 0-5 [facility] Comment on above: Performed By: #### L 3300.1500, L509.3001, L3300.6900, L501.9520, L501.80395, L801.2600, L100.0100, L506.0400, L506.1001, L500.4050, L3300.1750 #### [facility] [address] [place], [address] Platelet mean volume (Bld) [Entitic vol] 12.4 fL High 6.2-12.0 [facility] Comment on above: Performed By: #### L 3300.1500, L509.3001, L3300.6900, L501.9520, L501.69680, L801.2600, L100.0100, L506.0400, L506.1001, L500.4050, L3300.1750 #### [facility] [address] [place], [address] Platelets (Bld) [#/Vol] 246 10*3/uL Normal 150-450 [facility] Comment on above: Performed By: #### L 3300.1500, L509.3001, L3300.6900, L501.9520, L501.39148, L801.2600, L100.0100, L506.0400, L506.1001, L500.4050, L3300.1750 #### [facility] [address] [place], [address] RBC (Bld) [#/Vol] 5.03 10*6/uL Normal 4.2-5.4 [facility] Comment on above: Performed By: #### L 3300.1500, L509.3001, L3300.6900, L501.9520, L501.43027, L801.2600, L100.0100, L506.0400, L506.1001, L500.4050, L3300.1750 #### [facility] [address] [place], [address] RDW SD 44.3 fl High 35.1-43.9 [facility] Comment on above: Performed By: #### L 3300.1500, L509.3001, L3300.6900, L501.9520, L501.56135, L801.2600, L100.0100, L506.0400, L506.1001, L500.4050, L3300.1750 #### [facility] [address] [place], [address] WBC (Bld) [#/Vol] 5.1 10*3/uL Normal 4.4-11.0 [facility] Comment on above: Performed By: #### L 3300.1500, L509.3001, L3300.6900, L501.9520, L501.59857, L801.2600, L100.0100, L506.0400, L506.1001, L500.4050, L3300.1750 #### [facility] [address] [place], [address] Carbon dioxide, total [Moles /volume] in Central venous bloodon 06-22-2024 CO2 [Moles/Vol] 24.7 mmol/L 21.0-32.0 [facility] Chloride assayon 06-22-2024 Chloride [Moles/Vol] 99 mmol/L 98-108 [facility] Comprehensive Metabolic Prof ilon 06-22-2024 Albumin [Mass/Vol] 4.4 g/dL Normal 3.4-4.8 [facility] Comment on above: Order Comment: UNK Performed By: #### L 3300.1500, L509.3001, L3300.6900, L501.9520, L501.46570, L801.2600, L100.0100, L506.0400, L506.1001, L500.4050, L3300.1750 #### [facility] [address] [place], [place], [id number] Albumin/Globulin [Mass ratio] 2.3 {ratio} Normal 0.9-2.4 [facility] Comment on above: Order Comment: UNK Performed By: #### L 3300.1500, L509.3001, L3300.6900, L501.9520, L501.66336, L801.2600, L100.0100, L506.0400, L506.1001, L500.4050, L3300.1750 #### [facility] [address] [place], [place], [id number] ALK PHOS 105 U/L High 35-104 [facility] Comment on above: Order Comment: UNK Performed By: #### L 3300.1500, L509.3001, L3300.6900, L501.9520, L501.85824, L801.2600, L100.0100, L506.0400, L506.1001, L500.4050, L3300.1750 #### [facility] [address] [place], [place], [id number] ALT [Catalytic activity/Vol] 21 U/L Normal <=34 [facility] Comment on above: Order Comment: UNK Performed By: #### L 3300.1500, L509.3001, L3300.6900, L501.9520, L501.18398, L801.2600, L100.0100, L506.0400, L506.1001, L500.4050, L3300.1750 #### [facility] [address] [place], [address] AST [Catalytic activity/Vol] 19 U/L Normal <=31 [facility] Comment on above: Order Comment: UNK Performed By: #### L 3300.1500, L509.3001, L3300.6900, L501.9520, L501.43543, L801.2600, L100.0100, L506.0400, L506.1001, L500.4050, L3300.1750 #### [facility] [address] [place], [address] Bilirubin [Mass/Vol] 0.59 mg/dL Normal 0.00-1.30 [facility] Comment on above: Order Comment: UNK Performed By: #### L 3300.1500, L509.3001, L3300.6900, L501.9520, L501.08601, L801.2600, L100.0100, L506.0400, L506.1001, L500.4050, L3300.1750 #### [facility] [address] [place], [place], [phone] (391) BUN/CRE 23.9 RATIO High 10-20 [facility] Comment on above: Order Comment: UNK Performed By: #### L 3300.1500, L509.3001, L3300.6900, L501.9520, L501.19531, L801.2600, L100.0100, L506.0400, L506.1001, L500.4050, L3300.1750 #### [facility] [address] [place], [address] Calcium [Mass/Vol] 9.5 mg/dL Normal 7.6-11.0 [facility] Comment on above: Order Comment: UNK Performed By: #### L 3300.1500, L509.3001, L3300.6900, L501.9520, L501.40536, L801.2600, L100.0100, L506.0400, L506.1001, L500.4050, L3300.1750 #### [facility] [address] [place], [address] Chloride [Moles/Vol] 99 mmol/L Normal 98-108 [facility] Comment on above: Order Comment: UNK Performed By: #### L 3300.1500, L509.3001, L3300.6900, L501.9520, L501.73818, L801.2600, L100.0100, L506.0400, L506.1001, L500.4050, L3300.1750 #### [facility] [address] [place], [address] CO2 [Moles/Vol] 24.7 mmol/L Normal 21.0-32.0 [facility] Comment on above: Order Comment: UNK Performed By: #### L 3300.1500, L509.3001, L3300.6900, L501.9520, L501.03651, L801.2600, L100.0100, L506.0400, L506.1001, L500.4050, L3300.1750 #### [facility] [address] [place], [address] Creatinine [Mass/Vol] 0.76 mg/dL Normal 0.70-1.20 [facility] Comment on above: Order Comment: UNK Performed By: #### L 3300.1500, L509.3001, L3300.6900, L501.9520, L501.12556, L801.2600, L100.0100, L506.0400, L506.1001, L500.4050, L3300.1750 #### [facility] [address] [place], [address] GAP 10 Normal 5-15 [facility] Comment on above: Order Comment: UNK Performed By: #### L 3300.1500, L509.3001, L3300.6900, L501.9520, L501.90371, L801.2600, L100.0100, L506.0400, L506.1001, L500.4050, L3300.1750 #### [facility] [address] [place], [address] GFR/1.73 sq M.predicted among non-blacks MDRD (S/P/Bld) [Vol rate/Area] 85 mL/min/{1.73_m2} Normal >[address] [facility] Comment on above: Order Comment: UNK Result Comment: mL/m in/1.73m2 CKD-EPI Creatinine Equation (2020) Performed By: #### L 3300.1500, L509.3001, L3300.6900, L501.9520, L501.44760, L801.2600, L100.0100, L506.0400, L506.1001, L500.4050, L3300.1750 #### [facility] [address] [place], [address] Globulin (S) [Mass/Vol] 2.0 g/dL Low 2.2-4.2 [facility] Comment on above: Order Comment: UNK Performed By: #### L 3300.1500, L509.3001, L3300.6900, L501.9520, L501.20180, L801.2600, L100.0100, L506.0400, L506.1001, L500.4050, L3300.1750 #### [facility] [address] [place], [address] Glucose [Mass/Vol] 108 mg/dL High 70-99 [facility] Comment on above: Order Comment: UNK Performed By: #### L 3300.1500, L509.3001, L3300.6900, L501.9520, L501.49415, L801.2600, L100.0100, L506.0400, L506.1001, L500.4050, L3300.1750 #### [facility] [address] [place], [address] Potassium [Moles/Vol] 5.5 mmol/L High 3.3-5.1 [facility] Comment on above: Order Comment: UNK Performed By: #### L 3300.1500, L509.3001, L3300.6900, L501.9520, L501.74687, L801.2600, L100.0100, L506.0400, L506.1001, L500.4050, L3300.1750 #### [facility] [address] [place], [address] Sodium [Moles/Vol] 133 mmol/L Normal 133-145 [facility] Comment on above: Order Comment: UNK Performed By: #### L 3300.1500, L509.3001, L3300.6900, L501.9520, L501.12797, L801.2600, L100.0100, L506.0400, L506.1001, L500.4050, L3300.1750 #### [facility] [address] [place], [address] T PROT 6.4 g/dL Normal 5.9-8.4 [facility] Comment on above: Order Comment: UNK Performed By: #### L 3300.1500, L509.3001, L3300.6900, L501.9520, L501.62600, L801.2600, L100.0100, L506.0400, L506.1001, L500.4050, L3300.1750 #### [facility] [address] [place], [place], [address] Urea nitrogen [Mass/Vol] 18 mg/dL Normal 4-19 [facility] Comment on above: Order Comment: UNK Performed By: #### L 3300.1500, L509.3001, L3300.6900, L501.9520, L501.52430, L801.2600, L100.0100, L506.0400, L506.1001, L500.4050, L3300.1750 #### [facility] [address] [place], [place], [id number] Dehydroepiandrosterone sulfa te (DHEA-S) measurementon 06-22-2024 Dehydroepiandrosterone Sulfate 89.8 ug/dL 20.4-186.6 [facility] E2 post dose follitropin [Ma ss/Vol]on 06-22-2024 Estradiol (E2) Level 5.6 pg/mL [facility] Comment on above: FEMALES ADULT FEMALE : Premenopausal: 15-350 pg/mL(E2 levels vary widely through the menstrual cycle) Postmenopausal: <10 pg/mL OZ STAGES MEAN AGE REFERENCE RANGES Stage I(>14 days and prepubertal) 7.1 years Undetectable-20 pg/mLL Stage II 10.5 years Undetectable-24 pg/mL Stage III 11.6 years Undetectable-60 pg/mL Stage IV 12.3 years 15-85 pg/mL Stage V 14.5 years 15-350 pg/mL Puberty onset (transition from Oz stage I to Oz stage II) occurs for girls at a median age of 10.5 (/- 2) years. There is evidence that it may occur up to 1 year earlier in obese girls and in girls.Progression through Oz stages is variable. Oz stage V (adult) should be reached by age 18. Eosinophil percentageon 06-09 Eosinophils/100 WBC (Bld) 2.7 % 0-5 [facility] Erythrocyte distribution wid th (RBC) [Ratio]on 06-22-2024 Erythrocyte distribution width (RBC) [Entitic vol] 44.3 fL High 35.1-43.9 [facility] Erythrocyte distribution wid th ratioon 06-22-2024 Erythrocyte distribution width (RBC) [Ratio] 12.8 % 11.6-14.6 [facility] Estradiolon 06-22-2024 ESTRADIOL 5.6 pg/mL Normal [facility] Comment on above: Result Comment: FEMA LES ADULT FEMALE: Premenopausal: 15-350 pg/mL(E2 levels vary widely through the menstrual cycle) Postmenopausal: <10 pg/mL OZ STAGES MEAN AGE REFERENCE RANGES Stage I(>14 days and prepubertal) 7.1 years Undetectable-20 pg/mLL Stage II 10.5 years Undetectable-24 pg/mL Stage III 11.6 years Undetectable-60 pg/mL Stage IV 12.3 years 15-85 pg/mL Stage V 14.5 years 15-350 pg/mL Puberty onset (transition from Oz stage I to Oz stage II) occurs for girls at a median age of 10.5 (/- 2) years. There is evidence that it may occur up to 1 year earlier in obese girls and in girls. Progression through Oz stages is variable. Oz stage V (adult) should be reached by age 18. Performed By: #### L 3300.1500, L509.3001, L3300.6900, L501.9520, L501.70235, L801.2600, L100.0100, L506.0400, L506.1001, L500.4050, L3300.1750 #### [facility] [address] [place], [place], [phone] [phone]) Free T3on 06-22-2024 Free T3 [Mass/Vol] 2.8 pg/mL Normal 2.18-3.98 [facility] Comment on above: Order Comment: N UNK Performed By: #### L 3300.1500, L509.3001, L3300.6900, L501.9520, L501.44123, L801.2600, L100.0100, L506.0400, L506.1001, L500.4050, L3300.1750 #### [facility] [address] [place], [place], [phone] [phone] Free Triiodothyronine (T3) pg/dL 2.8 pg/mL 2.18-3.98 [facility] GFR/1.73 sq M.predicted rodríguez g non-blacks MDRD (S/P/Bld) [Vol rate/Area]on 06-22-2024 Estimated GFR (MDRD) Non-Af Amer 85 >60 [facility] Comment on above: mL/min/1.73m2 CKD-EP I Creatinine Equation (2020) Hematocrit Auto (Bld) [Volum e fraction]on 06-22-2024 Hematocrit (Bld) [Volume fraction] 47.4 % High 37-47 [facility] Hemoglobin measurementon Hemoglobin (Bld) [Mass/Vol] 15.7 g/dL High 12.0-15.0 [facility] Immature granulocytes/100 WB C Auto (Bld)on 06-22-2024 Immature granulocytes/100 WBC (Bld) 0.600 % 0.0-0.9 [facility] Comment on above: IG% - Immature Granu locytes (promyelocytes, myelocytes and metamyelocytes) > 1% indicates that a LEFT SHIFT is Present. L509.3001on 06-22-2024 Testosterone [Mass/Vol] 176.00 ng/dL High 5- [facility] Comment on above: Performed By: #### L 3300.1500, L509.3001, L3300.6900, L501.9520, L501.18746, L801.2600, L100.0100, L506.0400, L506.1001, L500.4050, L3300.1750 #### [facility] [address] [place], [place], [id number] Laboratory - Chemistry and C hemistry - challengeon 06-22-2024 AST [Catalytic activity/Vol] 19 U/L <32 [facility] Testosterone [Mass/Vol] 176.00 ng/dL High 5-32 [facility] Lymphocytes Auto (Unsp spec) [#/Vol]on 06-22-2024 Lymphocytes (Bld) [#/Vol] 1.29 10*3/uL 0.83-4.5 1 [facility] Lymphocytes/100 WBC Auto (Un sp spec)on 06-22-2024 Lymphocytes/100 WBC (Bld) 25.1 % 19-41 [facility] MCV (mean corpuscular volume ) determinationon 06-22-2024 MCV (RBC) [Entitic vol] 94.2 fL 81-99 [facility] Mean corpuscular hemoglobin (MCH) determinationon 06-22-2024 MCH (RBC) [Entitic mass] 31.2 pg 27.0-32.0 [facility] Mean corpuscular hemoglobin concentration (MCHC) determinationon 06-22-2024 MCHC (RBC) [Mass/Vol] 33.1 g/dL 32-36 [facility] Mean platelet volume determi nationon 06-22-2024 Platelet mean volume (Bld) [Entitic vol] 12.4 fL High 6.2-12.0 [facility] Monocyte percentageon 2024 Monocytes/100 WBC (Bld) 10.1 % High 0-10 [facility] Neutrophil percentageon 06-09 Neutrophils/100 WBC (Bld) 60.5 % 47-70 [facility] Nucleated red blood cell per centageon 06-22-2024 Nucleated RBC/100 WBC (Bld) [Ratio] 0 % 0-5 [facility] Platelet counton 06-22-2024 Platelets (Bld) [#/Vol] 246 10*3/uL 150-450 [facility] Potassium (Unsp spec) [Mass/ Vol]on 06-22-2024 Potassium [Moles/Vol] 5.5 mmol/L High 3.3-5.1 [facility] Quantitative serum progester one measurement by electrochemiluminescence immunoassay (on 06-22-2024 Progesterone Level 1.1 ng/mL . [facility] Comment on above: Follicular phase 0.1 - 0.9 Luteal phase 1.8 - 23.9 Ovulation phase 0.1 - 12.0 First trimester 11.0 - 44.3 Second trimester 25.4 - 83.3 Third trimester 58.7 - 214.0 Postmenopausal 0.0 - 0.1Performed at: [facility] [address] [id number] Director: Eron Jeffries PhD, Phone: [phone] RBC Auto (Bld) [#/Vol]on RBC (Bld) [#/Vol] 5.03 10*6/uL 4.2-5.4 [facility] Serum creatinine measurement (mass/volume)on 06-22-2024 Creatinine [Mass/Vol] 0.76 mg/dL 0.70-1.20 [facility] Serum globulin measurementon 06-22-2024 Globulin (S) [Mass/Vol] 2.0 g/dL Low 2.2-4.2 [facility] Serum glucose measurement (m ass/volume)on 06-22-2024 Glucose [Mass/Vol] 108 mg/dL High 70-99 [facility] Serum or plasma alanine bauer otransferase (ALT) measurementon 06-22-2024 ALT [Catalytic activity/Vol] 21 U/L <35 [facility] Serum or plasma albumin joyce urement (mass/volume)on 06-22-2024 Albumin [Mass/Vol] 4.4 g/dL 3.4-4.8 [facility] Serum or plasma albumin/glob ulin mass ratioon 06-22-2024 Albumin/Globulin [Mass ratio] 2.3 {ratio} 0.9-2.4 [facility] Serum or plasma alkaline mao sphatase measurementon 06-22-2024 ALP [Catalytic activity/Vol] 105 U/L High 35-104 [facility] Serum or plasma calcium joyce urement (mass/volume)on 06-22-2024 Calcium [Mass/Vol] 9.5 mg/dL 7.6-11.0 [facility] Serum or plasma urea nitroge n measurement (mass/volume)on 06-22-2024 Urea nitrogen [Mass/Vol] 18 mg/dL 4-19 [facility] Sodium levelon 06-22-2024 Sodium [Moles/Vol] 133 mmol/L 133-145 [facility] T4 Free Directon 06-22-2024 T4 FREE DIRECT 1.20 ng/dL Normal 0.76-1.46 [facility] Comment on above: Order Comment: N UNK Performed By: #### L 3300.1500, L509.3001, L3300.6900, L501.9520, L501.61284, L801.2600, L100.0100, L506.0400, L506.1001, L500.4050, L3300.1750 #### [facility] [address] [place], [place], [id number] T4 freeon 06-22-2024 Free T4 [Mass/Vol] 1.20 ng/dL 0.76-1.46 [facility] TPO Ab Qnon 06-22-2024 Thyroid Peroxidase Antibodies 16 IU/mL 0-34 [facility] Comment on above: Performed at: [address] [id number] Director: Eron Jeffries PhD, Phone: [phone] TSH DL <= 0.005 mIU/L Qnon 0 06-22-2024 Thyroid Stimulating Hormone (TSH) 0.544 uIU/mL 0.300-4.20 0 [facility] Thyroid Stim Hormone (TSH)on 06-22-2024 TSH 0.544 uIU/mL Normal 0.300-4.20 0 [facility] Comment on above: Performed By: #### L 3300.1500, L509.3001, L3300.6900, L501.9520, L501.51414, L801.2600, L100.0100, L506.0400, L506.1001, L500.4050, L3300.1750 #### [facility] [address] [place], [place], [id number] Total proteinon 06-22-2024 Protein [Mass/Vol] 6.4 g/dL 5.9-8.4 [facility] Vitamin D, 25-hydroxyon 06-09 Vitamin D 25-Hydroxy 81.4 ng/mL 30-100 [facility] Comment on above: Vitamin D StatusDefi ciency: <20 ng/mL (50nmol/L)Insufficiency: 20-30 ng/mL (50-75 nmol/L)Sufficiency: 30-100 ng/mL (75-250 nmol/L)Toxicity: >100 ng/mL (>250 nmol/L) Vitamin D,25 Hydroxyon 06-22 Vitamin D 25-OH 81.4 ng/mL Normal 30-100 [facility] Comment on above: Result Comment: Meche min D Status Deficiency: <20 ng/mL (50nmol/L) Insufficiency: 20-30 ng/mL (50-75 nmol/L) Sufficiency: 30-100 ng/mL (75-250 nmol/L) Toxicity: >100 ng/mL (>250 nmol/L) Performed By: #### L 3300.1500, L509.3001, L3300.6900, L501.9520, L501.45913, L801.2600, L100.0100, L506.0400, L506.1001, L500.4050, L3300.1750 #### [facility] [address] [place], [address] White blood cell (WBC) count on 06-22-2024 WBC (Bld) [#/Vol] 5.1 10*3/uL 4.4-11.0 [facility] Lipid Profileon 10-16-2023 Cholesterol [Mass/Vol] 239 mg/dL High [address] [facility] Comment on above: Result Comment: <200 mg/dL Desirable 200-240 mg/dL Borderline >240 mg/dL High Risk Performed By: #### L 3300.1500, L509.3001, L3300.6900, L501.9520, L501.10432, L801.2600, L100.0100, L506.0400, L506.1001, L500.4050, L3300.1750 #### [facility] [address] [place], [address] Cholesterol in HDL [Mass/Vol] 92 mg/dL Normal [facility] Comment on above: Result Comment: The drugs N-Acetylcysteine and Metamizole may falsely depress this assay. Reference Range HDL <40 mg/dL Low HDL Cholesterol HDL >or= 60 mg/dL High HDL Cholesterol Performed By: #### L 3300.1500, L509.3001, L3300.6900, L501.9520, L501.61458, L801.2600, L100.0100, L506.0400, L506.1001, L500.4050, L3300.1750 #### [facility] [address] [place], [address] Cholesterol in LDL [Mass/Vol] 136 mg/dL High 0-130 [facility] Comment on above: Performed By: #### L 3300.1500, L509.3001, L3300.6900, L501.9520, L501.74535, L801.2600, L100.0100, L506.0400, L506.1001, L500.4050, L3300.1750 #### [facility] [address] [place], [address] Cholesterol in VLDL [Mass/Vol] 11 mg/dL Normal 5-40 [facility] Comment on above: Performed By: #### L 3300.1500, L509.3001, L3300.6900, L501.9520, L501.41552, L801.2600, L100.0100, L506.0400, L506.1001, L500.4050, L3300.1750 #### [facility] [address] [place], [address] Triglyceride [Mass/Vol] 54 mg/dL Normal [facility] Comment on above: Result Comment: The drugs N-Acetylcysteine and Metamizole may falsely depress this assay. Serum Triglycerides Reference Interval Normal <150 mg/dL Borderline high 150 - 199 mg/dL High 200 - 499 mg/dL Very High > or = 500 mg/dL Performed By: #### L 3300.1500, L509.3001, L3300.6900, L501.9520, L501.64136, L801.2600, L100.0100, L506.0400, L506.1001, L500.4050, L3300.1750 #### [facility] [address] [facility] [place], [address] SCRN MAMM (CAD)W/ANTHONY BILATo n 08-23-2023 SCRN MAMM (CAD)W/ANTHONY BILAT [facility] Imaging Services [address] [place] [address] SCRN MAMM (CAD)W/ANTHONY BILAT MR#: [id number] Acct: [id number] Name: JENNIFER THOMAS Rep #: [id number] : 1955 F 68 From: Aman hickey MD PCP: ROB Mendoza Status: [facility] Study: SCRN MAMM (CAD)W/ANTHONY BILAT Date of Exam: 08/09 07/02 Exam# [id number] Ordering Dr: Antonina WilsonC [id number] MAMMOGRAPHY - BILATERAL SCREENING REASON FOR EXAM: Female, 68 years old. Routine annual screening examination. PERTINENT HISTORY: Non-contributory. TECHNIQUE: Digital bilateral breast anthony (3D mammographic acquisition) in the CC and MLO projections. 2-D mediolateral oblique (MLO) and craniocaudad (CC) views of both breasts were obtained. CAD: Full Field Digital Mammography with Computer Added Detection was performed. COMPARISON: Comparison is made with prior study dated April 25, 2021 and April 22, 2020. FINDINGS: Breast Composition: There are scattered areas of fibroglandular density. There are no dominant masses or suspicious calcifications. Stable small benign-appearing bilateral axillary lymph nodes. No other significant abnormalities are identified. There has been no significant change since the prior study. BI/SCRN MAMM (CAD)W/ANTHONY BILAT IMPRESSION: Stable bilateral screening mammogram. Yearly follow-up mammogram recommended. (A) ASSESSMENT CATEGORY: BIRADS Category 2: Benign. A letter regarding these results will be sent to the patient by the facility within 30 days. Approximately 10% of breast cancers are not detected by mammography. A normal mammogram should not delay biopsy of a clinically suspicious abnormality. [id number] Electronically Signed: Aman Calvo MD at 8:45 EDT , CC: ROB Wilson Marble Cleaner: Signed Normal [facility] - Miscellaneous t estsOrdered By: Dr. Melgar on 08-29-2022 Service comment (Unsp spec) [Interp] Comment . [facility] Comment on above: Levels of Specific I gE Class Description of Class ----- < 0.10 0 Negative 0.10 - 0.31 0/I Equivocal/Low 0.32 - 0.55 I Low 0.56 - 1.40 II Moderate 1.41 - 3.90 III High 3.91 - 19.00 IV Very High 19.01 - 100.00 V Very High >100.00 Very High No Panel InformationOrdered By: Dr. Melgar on 08-29-2022 Scallop Allergen <0.10 kU/L Class 0 [facility] Sesame Seed Allergen IgE Antibody <0.10 kU/L Class 0 [facility] Shrimp Allergen <0.10 kU/L Class 0 [facility] Serum black walnut IgE antib marty assay (units/volume)Ordered By: Dr. Melgar on 08-29-2022 [place] IgE Qn (S) <0.10 kU/L Class 0 [facility] Serum clam IgE antibody assa y (units/volume)Ordered By: Dr. Melgar on 08-29-2022 Clam IgE Qn (S) <0.10 kU/L Class 0 [facility] Serum codfish IgE antibody a ssay (units/volume)Ordered By: Dr. Melgar on 08-29-2022 Codfish IgE Qn (S) <0.10 kU/L Class 0 [facility] Serum corn IgE antibody assa y (units/volume)Ordered By: Dr. Melgar on 08-29-2022 [place] IgE Qn (S) <0.10 kU/L Class 0 [facility] Serum cow milk IgE antibody assay (units/volume)Ordered By: Dr. Melgar on 08-29-2022 Cow milk IgE Qn (S) <0.10 kU/L Class [address] [facility] Cow milk IgE Qn (S) Not Reportable [facility] Serum egg white IgE antibody assay (units/volume)Ordered By: Dr. Melgar on 08-29-2022 Egg white IgE Qn (S) <0.10 kU/L Class 0 [facility] Serum gluten IgE antibody as say (units/volume)Ordered By: Dr. Melgar on 08-29-2022 Gluten IgE Qn (S) <0.10 kU/L Class 0 [facility] Serum peach IgE antibody ass ay (units/volume)Ordered By: Dr. Melgar on 08-29-2022 [place] IgE Qn (S) <0.10 kU/L Class 0 [facility] Comment on above: Performed at: [address] [id number] Director: Juan Sutton MD, Phone: [phone] Serum peanut IgE antibody as say (units/volume)Ordered By: Dr. Melgar on 08-29-2022 Peanut IgE Qn (S) <0.10 kU/L Class 0 [facility] Serum soybean IgE antibody a ssay (units/volume)Ordered By: Dr. Melgar on 08-29-2022 Soybean IgE Qn (S) <0.10 kU/L Class 0 [facility] Serum strawberry IgE antibod y assay (units/volume)Ordered By: Dr. Melgar on 08-29-2022 [place] IgE Qn (S) <0.10 kU/L Class [address] [facility] Serum tomato IgE antibody as say (units/volume)Ordered By: Dr. Melgar on 08-29-2022 Tomato IgE Qn (S) <0.10 kU/L Class 0 [facility] Serum wheat IgE antibody ass ay (units/volume)Ordered By: Dr. Melgar on 08-29-2022 Wheat IgE Qn (S) <0.10 kU/L Class 0 [facility] Absolute lymphocyte counton 05-28-2022 Lymphocytes Auto (Unsp spec) [#/Vol] 2.17 10*3/uL 0.83-4.51 [facility] Basophil percentageon 2022 Basophils/100 WBC (Bld) 0.7 % 0-1 [facility] Bilirubin [Mass/Vol] 1.00 mg/dL 0.20-1.00 [facility] Comment on above: For patients on eltr ombopag therapy, use of Dimension [place] TBIL is not recommended. Chloride [Moles/Vol] 102 mmol/L 98-107 [facility] Eosinophils/100 WBC (Bld) 1.4 % 0-5 [facility] Glucose [Mass/Vol] 124 mg/dL 74-106 [facility] Comment on above: Fasting Glucose resu lt from 100 to 125 mg/dL suggests IMPAIRED HOMEOSTASIS per A.D.A. criteria. Neutrophils (Bld) [#/Vol] 4.6 10*3/uL 2.0-7.7 [facility] Neutrophils/100 WBC (Bld) 62.0 % 47-70 [facility] Potassium [Moles/Vol] 3.2 mmol/L 3.5-5.1 [facility] Protein [Mass/Vol] 7.2 g/dL 6.4-8.2 [facility] Sodium [Moles/Vol] 139 mmol/L 136-145 [facility] Testosterone [Mass/Vol] 31.25 ng/dL [facility] Comment on above: CENTRAL 90% REFERENC E RANGES MALE AGE <50 197.44 - 669.58 ng/dL MALE AGE > or = 50 187.72 - 684.19 ng/dL FEMALE AGE <50 8.38 - 35.01 ng/dL FEMALE AGE > or = 50 <7.00 - 35.92 ng/dL Effective as of 7/27/21 WBC (Bld) [#/Vol] 7.4 10*3/uL 4.4-11.0 [facility] Blood erythrocytes count (nu mber/volume)on 05-28-2022 RBC (Bld) [#/Vol] 5.11 10*6/uL 4.2-5.4 [facility] Blood hemoglobin measurement (mass/volume)on 05-28-2022 Hemoglobin (Bld) [Mass/Vol] 16.0 g/dL 12.0-15.0 [facility] Blood lymphocytes/100 leukoc yteson 05-28-2022 Lymphocytes/100 WBC (Bld) 29.3 % 19-41 [facility] Blood monocytes/100 leukocyt eson 05-28-2022 Monocytes/100 WBC (Bld) 6.2 % 0-10 [facility] Blood platelet mean volumeon 05-28-2022 Platelet mean volume (Bld) [Entitic vol] 11.8 fL 6.2-12.0 [facility] Determination of erythrocyte mean corpuscular volume (MCV)on 05-28-2022 MCV (RBC) [Entitic vol] 94.1 fL 81-99 [facility] Hematocrit Auto (Bld) [Volum e fraction]on 05-28-2022 Hematocrit (Bld) [Volume fraction] 48.1 % 37-47 [facility] Laboratory - Chemistry and C hemistry - challengeon 05-28-2022 ALP [Catalytic activity/Vol] 97 U/L 45-117 [facility] ALT [Catalytic activity/Vol] 25 U/L 13-56 [facility] CO2 [Moles/Vol] 29.0 mmol/L 21.0-32.0 [facility] Free T4 [Mass/Vol] 1.02 ng/dL 0.76-1.46 [facility] Globulin (S) [Mass/Vol] 3.1 g/dL 2.2-4.2 [facility] Urea nitrogen/Creatinine [Mass ratio] 13.7 mg/mg 10-20 [facility] - Hematology and Cell countson 05-28-2022 Erythrocyte distribution width (RBC) [Entitic vol] 43.8 fL 35.1-43.9 [facility] Erythrocyte distribution width (RBC) [Ratio] 12.6 % 11.6-14.6 [facility] Immature granulocytes/100 WBC (Bld) 0.400 % 0.0-0.9 [facility] Comment on above: IG% - Immature Granu locytes (promyelocytes, myelocytes and metamyelocytes) > 1% indicates that a LEFT SHIFT is Present. MCH (RBC) [Entitic mass] 31.3 pg 27.0-32.0 [facility] Nucleated RBC/100 WBC (Bld) [Ratio] 0 % 0-5 [facility] MCHC Auto (RBC) [Mass/Vol]on 05-28-2022 MCHC (RBC) [Mass/Vol] 33.3 g/dL 32-36 [facility] No Panel Informationon 05-28 Dehydroepiandrosterone Sulfate 139.0 ug/dL 20.4-186.6 [facility] Estimated GFR (MDRD) Amer 91 mL/min >60 [facility] Comment on above: GFR Calc Estimated GFR (MDRD) Non-Af Amer 75 mL/min >60 [facility] Comment on above: Non- GFR Calc Free Triiodothyronine (T3) pg/dL 2.6 pg/mL 2.18-3.98 [facility] Thyroid Stimulating Hormone (TSH) 2.45 uIU/mL 0.358-3.74 [facility] Platelets bldon 05-28-2022 Platelets (Bld) [#/Vol] 286 10*3/uL 150-450 [facility] Serum or plasma albumin joyce urement (mass/volume)on 05-28-2022 Albumin [Mass/Vol] 4.1 g/dL 3.2-5.0 [facility] Serum or plasma albumin/glob ulin mass ratioon 05-28-2022 Albumin/Globulin [Mass ratio] 1.3 {ratio} 0.9-2.4 [facility] Serum or plasma calcium joyce urement (mass/volume)on 05-28-2022 Calcium [Mass/Vol] 9.4 mg/dL 8.5-10.1 [facility] Serum or plasma creatinine m easurement (mass/volume)on 03-20-2023 Creatinine [Mass/Vol] 0.80 mg/dL 0.55-1.02 [facility] Comment on above: The validity of the calculated GFR & GFRAA in patients over 70 years has not been determined. Clinical correlation is essential. Serum or plasma estradiol (E 2) measurement (mass/volume)on 05-28-2022 E2 [Mass/Vol] 20.4 pg/mL [facility] Comment on above: NORMAL REFERENCE RAN GES FEMALE FOLLICULAR 21.4 - 164.8 pg/mL MID-CYCLE PEAK 49.9 - 367.2 pg/mL LUTEAL 40.2 - 259.0 pg/mL POST-MENOPAUSAL ON MHT <11.0 - 462.1 pg/mL NOT ON MHT <11.0 - 58.3 pg/mL MALE <11.0 - 52.5 pg/mL NOTE:[employer] HAS CONFIRMED THE DRUG FULVETRANT (FASLODEX) MAY CAUSE FALSELY ELEVATED ESTRADIOL RESULTS WHEN USING THIS TEST METHOD. IF PATIENT IS TAKING FULVESTRANT AN ALTERNATIVE METHOD SHOULD BE USED TO DETERMINE ESTRADIOL CONCENTRATION. Serum or plasma progesterone measurement (mass/volume)on 05-28-2022 Progesterone [Mass/Vol] 0.57 ng/mL See Comment [facility] Comment on above: Progesterone Referen ce Table: UNITS Female: Follicular 0.15 - 1.40 ng/mL Luteal 3.34 - 25.56 ng/mL Mid-luteal 4.44 - 28.03 ng/mL Postmenopausal 0.0 - 0.73 ng/mL : 1st Trimester 11.22 - 90.00 ng/mL 2nd Trimester 25.55 - 89.40 ng/mL 3rd Trimester 48.40 -422.50 ng/mL Serum or plasma thyroperoxid ase antibody assay (units/volume)on 05-28-2022 TPO Ab Qn 19 [IU]/mL 0-34 [facility] Comment on above: Performed at: [facility] [employer] [id number] Director: Eron Jeffries PhD, Phone: [phone] Serum or plasma urea nitroge n measurement (mass/volume)on 05-28-2022 Urea nitrogen [Mass/Vol] 11 mg/dL 7-18 [facility] Thin prep Papanicolaou smear with manual screeningon 05-28-2022 Thin prep Papanicolaou smear with manual screening 16 U/L 15-37 [facility] Thin prep Papanicolaou smear with manual screening 8 5-15 [facility] Basophil percentageon 2021 Bilirubin [Mass/Vol] 0.50 mg/dL 0.20-1.00 [facility] Work Phone: Comment on above: For patients on eltr ombopag therapy, use of Dimension [place] TBIL is not recommended. Chloride [Moles/Vol] 100 mmol/L 98-107 [facility] Work Phone: Glucose [Mass/Vol] 92 mg/dL 74-106 [facility] Work Phone: Potassium [Moles/Vol] 3.9 mmol/L 3.5-5.1 [facility] Work Phone: Protein [Mass/Vol] 6.7 g/dL 6.4-8.2 [facility] Work Phone: Sodium [Moles/Vol] 132 mmol/L 136-145 [facility] Work Phone: Laboratory - Chemistry and C hemistry - challengeon 01-26-2022 ALP [Catalytic activity/Vol] 104 U/L 45-117 [facility] Work Phone: ALT [Catalytic activity/Vol] 27 U/L 13-56 [facility] Work Phone: CO2 [Moles/Vol] 25.0 mmol/L 21.0-32.0 [facility] Work Phone: Globulin (S) [Mass/Vol] 2.9 g/dL 2.2-4.2 [facility] Work Phone: Urea nitrogen/Creatinine [Mass ratio] 19.5 mg/mg 10-20 [facility] Work Phone: No Panel Informationon 01-26 Estimated GFR (MDRD) Amer 104 mL/min >60 [facility] Work Phone: Comment on above: GFR Calc Estimated GFR (MDRD) Non-Af Amer 86 mL/min >60 [facility] Work Phone: Comment on above: Non- GFR Calc Serum or plasma albumin joyce urement (mass/volume)on 01-26-2022 Albumin [Mass/Vol] 3.8 g/dL 3.2-5.0 [facility] Work Phone: Serum or plasma albumin/glob ulin mass ratioon 01-26-2022 Albumin/Globulin [Mass ratio] 1.3 {ratio} 0.9-2.4 [facility] Work Phone: Serum or plasma calcium joyce urement (mass/volume)on 01-26-2022 Calcium [Mass/Vol] 8.9 mg/dL 8.5-10.1 [facility] Work Phone: Serum or plasma creatinine m easurement (mass/volume)on 01-26-2022 Creatinine [Mass/Vol] 0.72 mg/dL 0.55-1.02 [facility] Work Phone: Comment on above: The validity of the calculated GFR & GFRAA in patients over 70 years has not been determined. Clinical correlation is essential. Serum or plasma urea nitroge n measurement (mass/volume)on 01-26-2022 Urea nitrogen [Mass/Vol] 14 mg/dL - [facility] Work Phone: Thin prep Papanicolaou smear with manual screeningon 01-26-2022 Thin prep Papanicolaou smear with manual screening 17 U/L 15-37 [facility] Work Phone: Thin prep Papanicolaou smear with manual screening 7 5-15 [facility] Work Phone: Absolute lymphocyte counton 07-19-2021 Lymphocytes Auto (Unsp spec) [#/Vol] 1.41 10*3/uL 0.83-4.51 [facility] Work Phone: Basophil percentageon 2021 Basophils/100 WBC (Bld) 0.7 % 0-1 [facility] Work Phone: Bilirubin [Mass/Vol] 0.80 mg/dL 0.20-1.00 [facility] Work Phone: Comment on above: For patients on eltr ombopag therapy, use of Dimension [place] TBIL is not recommended. Chloride [Moles/Vol] 102 mmol/L 98-107 [facility] Work Phone: Eosinophils/100 WBC (Bld) 1.6 % 0-5 [facility] Work Phone: Glucose [Mass/Vol] 100 mg/dL 74-106 [facility] Work Phone: Comment on above: Fasting Glucose resu lt from 100 to 125 mg/dL suggests IMPAIRED HOMEOSTASIS per A.D.A. criteria. Neutrophils (Bld) [#/Vol] 3.6 10*3/uL 2.0-7.7 [facility] Work Phone: Neutrophils/100 WBC (Bld) 64.8 % 47-70 [facility] Work Phone: Potassium [Moles/Vol] 3.9 mmol/L 3.5-5.1 [facility] Work Phone: Protein [Mass/Vol] 7.2 g/dL 6.4-8.2 [facility] Work Phone: Sodium [Moles/Vol] 135 mmol/L 136-145 [facility] Work Phone: Testosterone [Mass/Vol] 30.48 ng/dL [facility] Work Phone: Comment on above: CENTRAL 90% REFERENC E RANGES MALE AGE <50 197.44 - 669.58 ng/dL MALE AGE > or = 50 187.72 - 684.19 ng/dL FEMALE AGE <50 8.38 - 35.01 ng/dL FEMALE AGE > or = 50 <7.00 - 35.92 ng/dL Effective as of 10/04/20 WBC (Bld) [#/Vol] 5.6 10*3/uL 4.4-11.0 [facility] Work Phone: Blood erythrocytes count (nu mber/volume)on 07-19-2021 RBC (Bld) [#/Vol] 4.96 10*6/uL 4.2-5.4 [facility]: Blood hemoglobin measurement (mass/volume)on 07-19-2021 Hemoglobin (Bld) [Mass/Vol] 15.7 g/dL 12.0-15.0 [facility] Work Phone: Blood lymphocytes/100 leukoc yteson 07-19-2021 Lymphocytes/100 WBC (Bld) 25.1 % 19-41 [facility] Work Phone: Blood monocytes/100 leukocyt eson 07-19-2021 Monocytes/100 WBC (Bld) 7.3 % 0-10 [facility] Work Phone: Blood platelet mean volumeon 07-19-2021 Platelet mean volume (Bld) [Entitic vol] 11.7 fL 6.2-12.0 [facility] Work Phone: Determination of erythrocyte mean corpuscular volume (MCV)on 07-19-2021 MCV (RBC) [Entitic vol] 93.5 fL 81-99 [facility] Work Phone: Hematocrit Auto (Bld) [Volum e fraction]on 07-19-2021 Hematocrit (Bld) [Volume fraction] 46.4 % 37-47 [facility] Work Phone: Laboratory - Chemistry and C hemistry - challengeon 07-19-2021 ALP [Catalytic activity/Vol] 104 U/L 45-117 [facility] Work Phone: ALT [Catalytic activity/Vol] 30 U/L 13-56 [facility] Work Phone: CO2 [Moles/Vol] 27.0 mmol/L 21.0-32.0 [facility] Work Phone: Free T4 [Mass/Vol] 0.93 ng/dL 0.76-1.46 [facility] Work Phone: Globulin (S) [Mass/Vol] 3.2 g/dL 2.2-4.2 [facility] Work Phone: Urea nitrogen/Creatinine [Mass ratio] 29.1 mg/mg 10-20 [facility] Work Phone: Laboratory - Hematology and Cell countson 07-19-2021 Erythrocyte distribution width (RBC) [Entitic vol] 43.7 fL 35.1-43.9 [facility] Work Phone: Erythrocyte distribution width (RBC) [Ratio] 12.7 % 11.6-14.6 [facility] Work Phone: Immature granulocytes/100 WBC (Bld) 0.500 % 0.0-0.9 [facility] Work Phone: Comment on above: IG% - Immature Granu locytes (promyelocytes, myelocytes and metamyelocytes) > 1% indicates that a LEFT SHIFT is Present. MCH (RBC) [Entitic mass] 31.7 pg 27.0-32.0 [facility] Work Phone: Nucleated RBC/100 WBC (Bld) [Ratio] 0 % 0-5 [facility] Work Phone: MCHC Auto (RBC) [Mass/Vol]on 07-19-2021 MCHC (RBC) [Mass/Vol] 33.8 g/dL 32-36 [facility] Work Phone: No Panel Informationon 07-19 Dehydroepiandrosterone Sulfate 111.0 ug/dL [facility] Work Phone: Estimated GFR (MDRD) Amer 104 mL/min >60 [facility] Work Phone: Comment on above: GFR Calc Estimated GFR (MDRD) Non-Af Amer 86 mL/min >60 [facility] Work Phone: Comment on above: Non- GFR Calc Free Triiodothyronine (T3) pg/dL 3.4 pg/mL 2.18-3.98 [facility] Work Phone: Thyroid Stimulating Hormone (TSH) 2.26 uIU/mL 0.358-3.74 [facility] Work Phone: Platelets bldon 07-19-2021 Platelets (Bld) [#/Vol] 238 10*3/uL 150-450 [facility] Work Phone: Serum or plasma albumin joyce urement (mass/volume)on 07-19-2021 Albumin [Mass/Vol] 4.0 g/dL 3.2-5.0 [facility] Work Phone: Serum or plasma albumin/glob ulin mass ratioon 07-19-2021 Albumin/Globulin [Mass ratio] 1.2 {ratio} 0.9-2.4 [facility] Work Phone: Serum or plasma calcium joyce urement (mass/volume)on 07-19-2021 Calcium [Mass/Vol] 8.9 mg/dL 8.5-10.1 [facility] Work Phone: Serum or plasma creatinine m easurement (mass/volume)on 07-19-2021 Creatinine [Mass/Vol] 0.72 mg/dL 0.55-1.02 [facility] Work Phone: Comment on above: The validity of the calculated GFR & GFRAA in patients over 70 years has not been determined. Clinical correlation is essential. Serum or plasma estradiol (E 2) measurement (mass/volume)on 07-19-2021 E2 [Mass/Vol] 15.5 pg/mL [facility] Work Phone: Comment on above: NORMAL REFERENCE RAN GES FEMALE FOLLICULAR 21.4 - 164.8 pg/mL MID-CYCLE PEAK 49.9 - 367.2 pg/mL LUTEAL 40.2 - 259.0 pg/mL POST-MENOPAUSAL ON MHT <11.0 - 462.1 pg/mL NOT ON MHT <11.0 - 58.3 pg/mL MALE <11.0 - 52.5 pg/mL NOTE:[employer] HAS CONFIRMED THE DRUG FULVETRANT (FASLODEX) MAY CAUSE FALSELY ELEVATED ESTRADIOL RESULTS WHEN USING THIS TEST METHOD. IF PATIENT IS TAKING FULVESTRANT AN ALTERNATIVE METHOD SHOULD BE USED TO DETERMINE ESTRADIOL CONCENTRATION. Serum or plasma progesterone measurement (mass/volume)on 07-19-2021 Progesterone [Mass/Vol] 1.08 ng/mL See Comment [facility] Work Phone: Comment on above: Progesterone Referen ce Table: UNITS Female: Follicular 0.15 - 1.40 ng/mL Luteal 3.34 - 25.56 ng/mL Mid-luteal 4.44 - 28.03 ng/mL Postmenopausal 0.0 - 0.73 ng/mL : 1st Trimester 11.22 - 90.00 ng/mL 2nd Trimester 25.55 - 89.40 ng/mL 3rd Trimester 48.40 -422.50 ng/mL Serum or plasma thyroperoxid ase antibody assay (units/volume)on 07-19-2021 TPO Ab Qn 13 [IU]/mL [facility] Work Phone: Comment on above: Performed at: [facility] [place] [address] [id number] Director: Eron Jeffries PhD, Phone: [phone] Serum or plasma urea nitroge n measurement (mass/volume)on 07-19-2021 Urea nitrogen [Mass/Vol] 21 mg/dL 7-18 [facility] Work Phone: Thin prep Papanicolaou smear with manual screeningon 07-19-2021 Thin prep Papanicolaou smear with manual screening 13 U/L 15-37 [facility] Work Phone: Thin prep Papanicolaou smear with manual screening 6 5-15 [facility] Work Phone: LIPID PANEL ([id number])Ordered B y: Time Recorder on 02-13-2021 Cholesterol [Mass/Vol] 239 mg/dL Abnormal 100-199 [facility] Work Phone: Comment on above: PATIENT WAS FASTINGP ERFORMED BY: LEANDER StylesightUNC Health Nash [id number] Cholesterol in HDL [Mass/Vol] 77 mg/dL Normal [facility]; [facility] Work Phone: Comment on above: PATIENT WAS FASTINGP ERFORMED BY: LEANDER ADPin [place] [id number] Triglyceride [Mass/Vol] 76 mg/dL Normal 0-149 [facility] Work Phone: Comment on above: PATIENT WAS FASTINGP ERFORMED BY: LEANDER [facility] [id number] [facility] [id number] LIPID PANEL ([id number]) 13 mg/dL Normal 5-40 [facility]; [facility] Work Phone: Comment on above: PATIENT WAS FASTINGP ERFORMED BY: LEANDER [facility] [id number] [facility] [id number] LIPID PANEL ([id number]) 149 mg/dL Abnormal 0-99 [facility]; [facility] Work Phone: Comment on above: PATIENT WAS FASTINGP ERFORMED BY: LEANDER [facility] [id number] [facility] [id number] LIPID PANEL ([id number]) 1.9 {ratio} Normal 0.0-3.2 [facility]; [facility] Work Phone: Comment on above: LDL/HDL Ratio Men Wo men 1/2 Avg.Risk 1.0 1.5 Avg.Risk 3.6 3.2 2X Avg.Risk 6.2 5.0 3X Avg.Risk 8.0 6.1 PATIENT WAS FASTINGP ERFORMED BY: LEANDER [facility] [id number] [facility] [id number] METABOLIC PANEL, COMPREHENSI VE ([id number])Ordered By: Time Recorder on 02-13-2021 Albumin [Mass/Vol] 4.7 g/dL Normal 3.8-4.8 [facility] Internal [facility]; [facility] Work Phone: Comment on above: PATIENT WAS FASTINGP ERFORMED BY: LEANDER [facility] [id number] [facility] [id number] Albumin/Globulin [Mass ratio] 2.6 {ratio} Abnormal 1.2-2.2 [facility]; [facility] Work Phone: Comment on above: PATIENT WAS FASTINGP ERFORMED BY: LEANDER [facility] [id number] [address] RoadDublin [place] [id number] ALP [Catalytic activity/Vol] 103 U/L Normal 44-121 [facility]; [facility] Work Phone: Comment on above: Please note refere nce interval change PATIENT WAS FASTINGP ERFORMED BY: [facility] [id number] [address]ata RoadDublin [place] [id number] ALT [Catalytic activity/Vol] 18 U/L Normal 0-32 [facility]; [facility] Work Phone: Comment on above: PATIENT WAS FASTINGP ERFORMED BY: [facility] [id number] [address] RoadDublin [place] [id number] AST [Catalytic activity/Vol] 18 U/L Normal 0-40 [facility]; [facility] Work Phone: Comment on above: PATIENT WAS FASTINGP ERFORMED BY: [facility] [id number] [address] RoadDublin [place] [id number] Bilirubin [Mass/Vol] 0.8 mg/dL Normal 0.0-1.2 Comp rehensive [facility]; [facility] Work Phone: Comment on above: PATIENT WAS FASTINGP ERFORMED BY: [facility] Tlexmq6135 [address] RoadDublin [place] [id number] Calcium [Mass/Vol] 9.7 mg/dL Normal 8.7-10.3 [facility]; [facility] Work Phone: Comment on above: PATIENT WAS FASTINGP ERFORMED BY: [facility] [id number] [address]Dublin [place] [id number] Chloride [Moles/Vol] 99 mmol/L Normal 96-106 [facility] rehens[facility]; [facility] Work Phone: Comment on above: PATIENT WAS FASTINGP ERFORMED BY: [facility] Deoggs2324 [address]Dublin [place] [id number] CO2 [Moles/Vol] 22 mmol/L Normal 20-29 [facility]; [facility] Work Phone: Comment on above: PATIENT WAS FASTINGP ERFORMED BY: LEANDER Soni6370 MataCrittenton Behavioral Health [id number] Creatinine [Mass/Vol] 0.65 mg/dL Normal 0.57-1.00 [facility]; [facility] Work Phone: Comment on above: PATIENT WAS FASTINGP ERFORMED BY: LEANDER Soni6370 [facility] [id number] GFR/1.73 sq M.predicted among blacks CKD-EPI (S/P/Bld) [Vol rate/Area] 107 mL/min/1.73 Normal [facility]; [facility] Work Phone: Comment on above: In accordance with recommendations from the NKF-ASN Task force, [facility] is in the process of updating its eGFR calculation to the 2020 CKD-EPI creatinine equation that estimates kidney function without a race variable. PATIENT WAS FASTINGP ERFORMED BY: LEANDER Soni6370 [facility] [id number] GFR/1.73 sq M.predicted among non-blacks CKD-EPI (S/P/Bld) [Vol rate/Area] 93 mL/min/1.73 Normal [facility]; [facility] Work Phone: Comment on above: PATIENT WAS FASTINGP ERFORMED BY: LEANDER Soni6370 [facility] [id number] Globulin (S) [Mass/Vol] 1.8 g/dL Normal 1.5-4.5 [facility]; [facility] Work Phone: Comment on above: PATIENT WAS FASTINGP ERFORMED BY: LEANDER Spaulding [id number] [facility] [id number] Glucose [Mass/Vol] 97 mg/dL Normal 65-99 [facility]; [facility] Work Phone: Comment on above: PATIENT WAS FASTINGP ERFORMED BY: LEANDER Spaulding [id number] [facility] [id number] Potassium [Moles/Vol] 4.7 mmol/L Normal 3.5-5.2 [facility] prehensive Internal Medicine; [facility] Work Phone: Comment on above: PATIENT WAS FASTINGP ERFORMED BY: CB [facility] [id number] [address] RoadDublin [place] [id number] Protein [Mass/Vol] 6.5 g/dL Normal 6.0-8.5 [facility]; [facility] Work Phone: Comment on above: PATIENT WAS FASTINGP ERFORMED BY: CB [facility] [id number] [address]Dublin [place] [id number] Sodium [Moles/Vol] 137 mmol/L Normal 134-144 [facility]; [facility] Work Phone: Comment on above: PATIENT WAS FASTINGP ERFORMED BY: CB [facility] [id number] [address] RoadDublin [place] [id number] Urea nitrogen [Mass/Vol] 11 mg/dL Normal 8-27 [facility]; [facility] Work Phone: Comment on above: PATIENT WAS FASTINGP ERFORMED BY: CB [facility] [id number] [address]Dublin [place] [id number] Urea nitrogen/Creatinine [Mass ratio] 17 mg/mg Normal 12-28 [facility]; [facility] Work Phone: Comment on above: PATIENT WAS FASTINGP ERFORMED BY: CB [facility] [id number] [address]Dublin [place] [id number] URINE JAMAL CULTURE[place]IDENTIF[place] ([id number])Ordered By: Time Recorder on 04-11-2020 Bacteria identified Cx Nom (U) BETAGB Abnormal [facility]; [facility] Work Phone: Comment on above: Beta hemolytic Strep tococcus, group B300 Colonies/mLPenicillin and ampicillin are drugs of choice for treatment ofbeta-hemolytic streptococcal infections. Susceptibility testing ofpenicillins and other beta-lactam agents approved by the FDA fortreatment of beta-hemolytic streptococcal infections need not beperformed routinely because nonsusceptible isolates are extremelyrare in any beta-hemolytic streptococcus and have not been reportedfor Streptococcus pyogenes (group A). (CLSI) S = Susceptible; I = Intermediate; R = Resistant P = Positive; N = Negative MICS are expressed in micrograms per mL Antibiotic RSLT#1 RSLT#2 RSLT#3 RSLT#4Amoxicillin/Clavulanic Acid SAmpicillin SCefepime SCeftriaxone SCefuroxime SCiprofloxacin RErtapenem SGentamicin SImipenem SLevofloxacin RMeropenem SNitrofurantoin SPiperacillin/Tazobactam STetracycline STobramycin STrimethoprim/Sulfa S PERFORMED BY: [employer] [place] [id number] Information: SRC:UR Bacteria identified Cx Nom (U) Final report Abnormal [facility]; [facility] Work Phone: Comment on above: PERFORMED BY: [employer] [place] [id number] Information: SRC:UR Bacteria identified Cx Nom (U) Escherichia coli Abnormal [facility]; [facility] Work Phone: Comment on above: 100 Colonies/mL .Cef azolin <=4 ug/mLCefazolin with an CIARAN <=16 predicts susceptibility to the oral agentscefaclor, cefdinir, cefpodoxime, cefprozil, cefuroxime, cephalexin,and loracarbef when used for therapy of uncomplicated urinary tractinfections due to E. coli, Klebsiella pneumoniae, and Proteusmirabilis. PERFORMED BY: [employer] TherapeuticsMut[employer] [place] [id number] Information: SRC:UR Urinalysis, Office ([id number])Or dered By: Heath Mackay on 04-11-2020 Bilirubin Ql (U) Negative Normal Comprehe nsive [facility] Medicine; [facility] Work Phone: Bilirubin Ql (U) Negative Normal Comprehe nsive [facility]; [facility] Work Phone: Glucose Test strip (U) [Mass/Vol] Negative Normal [facility]; [facility] Work Phone: Glucose Test strip (U) [Mass/Vol] Negative Normal [facility]; [facility] Work Phone: Hemoglobin Ql (U) +++ Abnormal Compreh ensive [facility]; [facility] Work Phone: Ketones Ql (U) Negative Normal Comprehens spenser [facility]; [facility] Work Phone: Ketones Ql (U) Negative Normal Comprehens [facility]er Internal [facility]; [facility] Work Phone: Leukocyte esterase Test strip Ql (U) Large Normal [facility]; [facility] Work Phone: Nitrite Ql (U) Negative Normal Comprehens [facility]er [facility]; [facility] Work Phone: Nitrite Ql (U) Negative Normal Comprehens sp[facility]er [facility]; [facility] Work Phone: pH (U) 8 [pH] Abnormal [facility]; [facility] Work Phone: Protein Ql (U) Negative Normal Comprehens sp[facility]er [facility]; [facility] Work Phone: Protein Ql (U) Negative Normal Comprehens [facility]er [facility]; [facility] Work Phone: Specific gravity (U) [Rel density] 1.005 1 Normal [facility]; [facility] Work Phone: Urobilinogen (24H U) [Mass/Time] Normal Normal [facility] Internal [facility]; [facility] Work Phone: URINE JAMAL CULTURE-IDENTIFICA [place] ([id number])Ordered By: Time Recorder on 04-01-2020 Bacteria identified Cx Nom (U) BETAGB Abnormal [facility] Internal Medicine; [facility] Work Phone: Comment on above: Beta hemolytic Strep tococcus, group B700 Colonies/mLPenicillin and ampicillin are drugs of choice for treatment ofbeta-hemolytic streptococcal infections. Susceptibility testing ofpenicillins and other beta-lactam agents approved by the FDA fortreatment of beta-hemolytic streptococcal infections need not beperformed routinely because nonsusceptible isolates are extremelyrare in any beta-hemolytic streptococcus and have not been reportedfor Streptococcus pyogenes (group A). (CLSI) S = Susceptible; I = Intermediate; R = Resistant P = Positive; N = Negative MICS are expressed in micrograms per mL Antibiotic RSLT#1 RSLT#2 RSLT#3 RSLT#4Amoxicillin/Clavulanic Acid SAmpicillin SCefepime SCeftriaxone SCefuroxime SCiprofloxacin RErtapenem SGentamicin SImipenem SLevofloxacin RMeropenem SNitrofurantoin SPiperacillin/Tazobactam STetracycline STobramycin STrimethoprim/Sulfa S PERFORMED BY: [employer] [place] [id number] Information: SRC:UR Bacteria identified Cx Nom (U) Final report Abnormal [facility]; [facility] Work Phone: Comment on above: PERFORMED BY: [employer] [place] [id number] Information: SRC:UR Bacteria identified Cx Nom (U) Escherichia coli Abnormal [facility]; [facility] Work Phone: Comment on above: 25,000-50,000 colony forming units per mLCefazolin <=4 ug/mLCefazolin with an CIARAN <=16 predicts susceptibility to the oral agentscefaclor, cefdinir, cefpodoxime, cefprozil, cefuroxime, cephalexin,and loracarbef when used for therapy of uncomplicated urinary tractinfections due to E. coli, Klebsiella pneumoniae, and Proteusmirabilis. PERFORMED BY: [employer] Effector TherapeuticsOns[facility] [id number] Information: SRC:UR Urinalysis, Office ([id number])Or dered By: Heath Mackay on 04-01-2020 Bilirubin Ql (U) Negative Normal Comprehe nsive [facility]; [facility] Work Phone: Bilirubin Ql (U) Negative Normal Comprehe nsive [facility]; [facility] Work Phone: Glucose Test strip (U) [Mass/Vol] Negative Normal [facility]; [facility] Work Phone: Glucose Test strip (U) [Mass/Vol] Negative Normal [facility]; [facility] Work Phone: Hemoglobin Ql (U) + Abnormal Compreh ensive [facility]; [facility] Work Phone: Ketones Ql (U) Negative Normal Comprehens [facility]er [facility]; [facility] Work Phone: Ketones Ql (U) Negative Normal Comprehens [facility]er [facility]; [facility] Work Phone: Leukocyte esterase Test strip Ql (U) Negative Normal [facility]; [facility] Work Phone: Leukocyte esterase Test strip Ql (U) Negative Normal [facility]; [facility] Work Phone: Nitrite Ql (U) Negative Normal Comprehens spenser [facility]; [facility] Work Phone: Nitrite Ql (U) Negative Normal Comprehens spenser [facility]; [facility] Work Phone: pH (U) 7 [pH] Normal [facility]; [facility] Work Phone: Protein Ql (U) Negative Normal Comprehens spenser [facility]; [facility] Work Phone: Protein Ql (U) Negative Normal Comprehens spenser [facility]; [facility] Work Phone: Specific gravity (U) [Rel density] 1.010 1 Normal [facility]; [facility] Work Phone: Urobilinogen (24H U) [Mass/Time] Normal Normal [facility]; [facility] Work Phone: CBC, PLATELETS & AUT DIFF ([id number])Ordered By: Time Recorder on 01-20-2020 Basophils (Bld) [#/Vol] 0.1 {x10E3/uL} Normal 0.0-0.2 [facility] Work Phone: Comment on above: PATIENT WAS FASTINGP ERFORMED BY: LEANDER [employer] Labsagusto SoniBdkicq4108 [facility] [id number] Basophils (Bld) [#/Vol] 0.1 10*3/uL Normal 0.0-0.2 [facility]; [facility] Work Phone: Comment on above: PATIENT WAS FASTINGP ERFORMED BY: LEANDER [employer] Tdqrzc1495 Mata RoadDublin [place] [id number] Basophils/100 WBC (Bld) 1 % Normal C omprehensive Internal Medicine Work Phone: Comment on above: PATIENT WAS FASTINGP ERFORMED BY: LEANDER LabCoagusto SoniCovynk3356 Mata RoadDublin [place] [id number] Eosinophils (Bld) [#/Vol] 0.2 {x10E3/uL} Normal 0.0-0. 4 [facility] Work Phone: Comment on above: PATIENT WAS FASTINGP ERFORMED BY: LEANDER [facility] Ksczim7105 [address]ata RoadDublin [place] [id number] Eosinophils (Bld) [#/Vol] 0.2 10*3/uL Normal 0.0-0.4 [facility]; [facility] Work Phone: Comment on above: PATIENT WAS FASTINGP ERFORMED BY: LEANDER LabDandy MeltonBzmdtt5065 Mata RoadDublin [place] [id number] Eosinophils/100 WBC (Bld) 2 % Normal [facility] Work Phone: Comment on above: PATIENT WAS FASTINGP ERFORMED BY: LEANDER LabCoagusto Enfinf6533 [address] [facility] [place] [id number] Erythrocyte distribution width (RBC) [Ratio] 12.7 % Normal 11.7-15.4 Comprehensiv e Internal Medicine Work Phone: Comment on above: PATIENT WAS FASTINGP ERFORMED BY: LEANDER [facility] Crwyak8557 [address] RoadDublin [place] [id number] Hematocrit (Bld) [Volume fraction] 45.2 % Normal 34.0-46.6 [facility] Work Phone: Comment on above: PATIENT WAS FASTINGP ERFORMED BY: LEANDER [facility] Niokka4231 [address] RoadDublin [place] [id number] Hemoglobin (Bld) [Mass/Vol] 15.0 g/dL Normal 11.1-15.9 [facility] Work Phone: Comment on above: PATIENT WAS FASTINGP ERFORMED BY: LEANDER [facility] Ijouun1408 [address] RoadDublin [place] [id number] Immature granulocytes (Bld) [#/Vol] 0.0 {x10E3/uL} Normal 0.0-0.1 [facility] Work Phone: Comment on above: PATIENT WAS FASTINGP ERFORMED BY: LEANDER Meltonlin6370 [address] [facility]in [place] [id number] Immature granulocytes (Bld) [#/Vol] 0.0 10*3/uL Normal 0.0-0.1 [facility]; [facility] Work Phone: Comment on above: PATIENT WAS FASTINGP ERFORMED BY: LEANDER [facility] Xwvvco2588 [address] [facility] [id number] Immature granulocytes/100 WBC (Bld) 0 % Normal [facility] Work Phone: Comment on above: PATIENT WAS FASTINGP ERFORMED BY: LEANDER VegasSdagusto MeltonUmvhui4094 [address] [facility] [id number] Lymphocytes (Bld) [#/Vol] 1.7 {x10E3/uL} Normal 0.7-3. 1 [facility] Work Phone: Comment on above: PATIENT WAS FASTINGP ERFORMED BY: LEANDER Meltonlin6370 [facility] [id number] Lymphocytes (Bld) [#/Vol] 1.7 10*3/uL Normal 0.7-3.1 [facility]; [facility] Work Phone: Comment on above: PATIENT WAS FASTINGP ERFORMED BY: LEANDER [facility]6370 [address] [facility] [id number] Lymphocytes/100 WBC (Bld) 25 % Normal [facility] Work Phone: Comment on above: PATIENT WAS FASTINGP ERFORMED BY: LEANDER [facility] Oqgyen9740 [address] [facility]in [place] [id number] MCH (RBC) [Entitic mass] 31.6 pg Normal 26.6-33.0 [facility] Work Phone: Comment on above: PATIENT WAS FASTINGP ERFORMED BY: LEANDER Lali Soni6370 [facility] [id number] MCHC (RBC) [Mass/Vol] 33.2 g/dL Normal 31.5-35.7 [facility] Centerensive [facility] Work Phone: Comment on above: PATIENT WAS FASTINGP ERFORMED BY: LEANDER Lali Soni6370 [facility] [id number] MCV (RBC) [Entitic vol] 95 fL Normal 79-97 [facility] Work Phone: Comment on above: PATIENT WAS FASTINGP ERFORMED BY: LEANDER Sarah Nauuoa3602 [facility] [id number] Monocytes (Bld) [#/Vol] 0.5 {x10E3/uL} Normal 0.1-0.9 [facility] Work Phone: Comment on above: PATIENT WAS FASTINGP ERFORMED BY: LEANDER Sarah Nzebwc4802 [facility] [id number] Monocytes (Bld) [#/Vol] 0.5 10*3/uL Normal 0.1-0.9 [facility]; [facility] Work Phone: Comment on above: PATIENT WAS FASTINGP ERFORMED BY: LEANDER Lali Meltonlin6370 [facility] [id number] Monocytes/100 WBC (Bld) 8 % Normal C [facility] Work Phone: Comment on above: PATIENT WAS FASTINGP ERFORMED BY: LEANDER Sarah Mkprlh4160 [facility] [id number] Neutrophils (Bld) [#/Vol] 4.6 {x10E3/uL} Normal 1.4-7. 0 [facility] Work Phone: Comment on above: PATIENT WAS FASTINGP ERFORMED BY: LEANDER Sarah Spdumf2050 [facility] [id number] Neutrophils (Bld) [#/Vol] 4.6 10*3/uL Normal 1.4-7.0 [facility]; [facility] Work Phone: Comment on above: PATIENT WAS FASTINGP ERFORMED BY: CB [facility] Eqmltu2059 [address] RoadDublin [place] [id number] Neutrophils/100 WBC (Bld) 64 % Normal [facility] Work Phone: Comment on above: PATIENT WAS FASTINGP ERFORMED BY: LEANDER [facility] Upxuxa9306 [address] RoadDublin [place] [id number] Platelets (Bld) [#/Vol] 246 {x10E3/uL} Normal 150-450 [facility] Work Phone: Comment on above: PATIENT WAS FASTINGP ERFORMED BY: CB [facility] Hiofoo8031 [address] RoadDublin [place] [id number] Platelets (Bld) [#/Vol] 246 10*3/uL Normal 150-450 [facility]; [facility] Work Phone: Comment on above: PATIENT WAS FASTINGP ERFORMED BY: CB [facility] Awsnvh4818 [address] RoadDublin [place] [id number] RBC (Bld) [#/Vol] 4.74 {x10E6/uL} Normal 3.77-5.28 [facility] Internal Medicine Work Phone: Comment on above: PATIENT WAS FASTINGP ERFORMED BY: CB [facility] Qnsqtm3839 [address] RoadDublin [place] [id number] RBC (Bld) [#/Vol] 4.74 10*6/uL Normal 3.77-5.28 [facility] Internal Medicine; [facility] Work Phone: Comment on above: PATIENT WAS FASTINGP ERFORMED BY: CB [facility] Kxzoru9051 [address] RoadDublin [place] [id number] WBC (Bld) [#/Vol] 7.1 {x10E3/uL} Normal 3.4-10.8 [facility] Internal Medicine Work Phone: Comment on above: PATIENT WAS FASTINGP ERFORMED BY: CB [facility] Gvogbi2458 [address] RoadDublin [place] [id number] WBC (Bld) [#/Vol] 7.1 10*3/uL Normal 3.4-10.8 Compre [facility] Internal Medicine; [facility] Work Phone: Comment on above: PATIENT WAS FASTINGP ERFORMED BY: LEANDER [facility] Svrmmk9245 [address] RoadDublin [place] [id number] LIPID PANEL ([id number])Ordered B y: Time Recorder on 01-20-2020 Cholesterol [Mass/Vol] 223 mg/dL Abnormal 100-199 Co [facility]ensive [facility] Work Phone: Comment on above: PATIENT WAS FASTINGP ERFORMED BY: LEANDER [facility] Tftvnr1728 [address] [facility]in [place] [id number] Cholesterol in HDL [Mass/Vol] 82 mg/dL Normal [facility] Work Phone: Comment on above: PATIENT WAS FASTINGP ERFORMED BY: LEANDER LabCoagusto Okooym5905 [address] [facility] [id number] Cholesterol in LDL/Cholesterol in HDL [Mass ratio] 1.6 {ratio} Normal 0.0-3.2 [facility] Work Phone: Comment on above: LDL/HDL Ratio Men Wo men 1/2 Avg.Risk 1.0 1.5 Avg.Risk 3.6 3.2 2X Avg.Risk 6.2 5.0 3X Avg.Risk 8.0 6.1 PATIENT WAS FASTINGP ERFORMED BY: LEANDER LabCoagusto Bmemjg2593 [address] [facility] [id number] Triglyceride [Mass/Vol] 50 mg/dL Normal 0-149 C [facility]ensive [facility] Work Phone: Comment on above: PATIENT WAS FASTINGP ERFORMED BY: LEANDER [facility] Uqeanh1999 [address] [facility]in [place] [id number] LIPID PANEL (09251) 132 mg/dL Abnormal 0-99 Compr ensive Internal Medicine Work Phone: Comment on above: PATIENT WAS FASTINGP ERFORMED BY: LEANDER [facility] Wnvozx2714 [address] [facility] HospitalDublin [place] [id number] LIPID PANEL (94455) 9 mg/dL Normal 5-40 Compr ensive Internal Medicine Work Phone: Comment on above: PATIENT WAS FASTINGP ERFORMED BY: LEANDER Meltonlin6370 [address] [facility]in [place] [id number] LIPID PANEL (48766) 1.6 {ratio} Normal 0.0-3.2 [facility] Internal Medicine; [facility] Work Phone: Comment on above: LDL/HDL Ratio Men Wo men 1/2 Avg.Risk 1.0 1.5 Avg.Risk 3.6 3.2 2X Avg.Risk 6.2 5.0 3X Avg.Risk 8.0 6.1 PATIENT WAS FASTINGP ERFORMED BY: LEANDER LabDandy MeltonDapecz4004 [address] [facility]in [place] [id number] METABOLIC PANEL, COMPREHENSI VE ([id number])Ordered By: Time Recorder on 01-20-2020 Albumin [Mass/Vol] 4.6 g/dL Normal 3.8-4.8 [facility] Internal Medicine Work Phone: Comment on above: PATIENT WAS FASTINGP ERFORMED BY: LEANDER Meltonlin6370 [address] [facility] [id number] Albumin/Globulin [Mass ratio] 2.3 {ratio} Abnormal 1.2-2.2 [facility] Work Phone: Comment on above: PATIENT WAS FASTINGP ERFORMED BY: LEANDER Meltonlin6370 [facility] [id number] ALP [Catalytic activity/Vol] 95 [iU]/L Normal 39-117 [facility] Work Phone: Comment on above: PATIENT WAS FASTINGP ERFORMED BY: LEANDER LabAnn Vcbizk8046 [address] [facility] [id number] ALP [Catalytic activity/Vol] 95 U/L Normal 39-117 [facility]; [facility] Work Phone: Comment on above: PATIENT WAS FASTINGP ERFORMED BY: LEANDER LabDandy MeltonAfxvom8379 [address] [facility]in [place] [id number] ALT [Catalytic activity/Vol] 17 [iU]/L Normal 0-32 [facility] Work Phone: Comment on above: PATIENT WAS FASTINGP ERFORMED BY: LEANDER LabCo Hidqch4561 [address] RoadDublin [place] [id number] ALT [Catalytic activity/Vol] 17 U/L Normal 0-32 [facility]; [facility] Work Phone: Comment on above: PATIENT WAS FASTINGP ERFORMED BY: [facility] Evygbl1127 [address] RoadDublin [place] [id number] AST [Catalytic activity/Vol] 16 [iU]/L Normal 0-40 [facility] Work Phone: Comment on above: PATIENT WAS FASTINGP ERFORMED BY: LabCo Dniwef5390 [address] RoadDublin [place] [id number] AST [Catalytic activity/Vol] 16 U/L Normal 0-40 [facility]; [facility] Work Phone: Comment on above: PATIENT WAS FASTINGP ERFORMED BY: Lab[facility] Owdjxy3664 [address] RoadDublin [place] [id number] Bilirubin [Mass/Vol] 0.8 mg/dL Normal 0.0-1.2 [facility] Medicineensive Internal Medicine Work Phone: Comment on above: PATIENT WAS FASTINGP ERFORMED BY: LabCo Iurxss5438 [address] RoadDublin [place] [id number] Calcium [Mass/Vol] 9.6 mg/dL Normal 8.7-10.3 [facility] Internal Medicine Work Phone: Comment on above: PATIENT WAS FASTINGP ERFORMED BY: LabCo Mfagql8273 [address] RoadDublin [place] [id number] Chloride [Moles/Vol] 102 mmol/L Normal 96-106 [facility] Medicineensive Internal Medicine Work Phone: Comment on above: PATIENT WAS FASTINGP ERFORMED BY: [facility] Ybrpme2080 [address] RoadDublin [place] [id number] CO2 [Moles/Vol] 23 mmol/L Normal 20-29 [facility] Internal Medicine Work Phone: Comment on above: PATIENT WAS FASTINGP ERFORMED BY: [facility] Vznhvw8233 [address] RoadDublin [place] [id number] Creatinine [Mass/Vol] 0.84 mg/dL Normal 0.57-1.00 [facility]erensive Internal Medicine Work Phone: Comment on above: PATIENT WAS FASTINGP ERFORMED BY: [facility] Ycunrj5990 [address] RoadDublin [place] [id number] GFR/1.73 sq M predicted among blacks CKD-EPI (S/P/Bld) [Vol rate/Area] 84 mL/min/1.73 Normal [facility] Internal Medicine Work Phone: Comment on above: PATIENT WAS FASTINGP ERFORMED BY: CB [facility] Eeemcw4442 [address] RoadDublin [place] [id number] GFR/1.73 sq M predicted among non-blacks CKD-EPI (S/P/Bld) [Vol rate/Area] 73 mL/min/1.73 Normal [facility] Internal Medicine Work Phone: Comment on above: PATIENT WAS FASTINGP ERFORMED BY: LabCo Bgyujw6934 [address] RoadFormerly [facility] [place] [id number] Globulin (S) [Mass/Vol] 2.0 g/dL Normal 1.5-4.[address] [facility] Internal Medicine Work Phone: Comment on above: PATIENT WAS FASTINGP ERFORMED BY: LabCo Ncvivv7030 [address] [facility]in [place] [id number] Glucose [Mass/Vol] 96 mg/dL Normal 65-99 [facility] Internal Medicine Work Phone: Comment on above: PATIENT WAS FASTINGP ERFORMED BY: LabCo Ftmtal3022 [address] [facility]in [place] [id number] Potassium [Moles/Vol] 4.6 mmol/L Normal 3.5-5.2 [facility] Internal Medicine Work Phone: Comment on above: PATIENT WAS FASTINGP ERFORMED BY: [facility] Tmoijl5776 [address] [facility]in [place] [id number] Protein [Mass/Vol] 6.6 g/dL Normal 6.0-8.5 [facility] Internal Medicine Work Phone: Comment on above: PATIENT WAS FASTINGP ERFORMED BY: LEANDER [facility] Vklztx3715 [address] RoadDublin [place] [id number] Sodium [Moles/Vol] 139 mmol/L Normal 134-144 [facility] Internal Medicine Work Phone: Comment on above: PATIENT WAS FASTINGP ERFORMED BY: [facility] Tdfamg3748 [address] RoadDublin [place] [id number] Urea nitrogen [Mass/Vol] 21 mg/dL Normal 8- [facility] Work Phone: Comment on above: PATIENT WAS FASTINGP ERFORMED BY: [facility] Hjxjqu1684 [address] RoadFormerly [facility] [place] [id number] Urea nitrogen/Creatinine [Mass ratio] 25 mg/mg Normal 03-07 [facility] Work Phone: Comment on above: PATIENT WAS FASTINGP ERFORMED BY: [facility] Xjhxln3719 [address] [facility]in [place] [id number] TSH (THYROID STIMULATING HOR SUZY) ([id number])Ordered By: Time Recorder on 01-20-2020 TSH Qn 3.020 {uIU/mL} Normal 0.450-4.50 0 [facility] Work Phone: Comment on above: PATIENT WAS FASTINGP ERFORMED BY: [facility] Fzfpqf8881 [address] [facility] Hospitalblin [place] [id number] CBC WITH MANUAL DIFF ([id number]) Ordered By: Time Recorder on 07-30-2019 Basophils (Bld) [#/Vol] 0.1 {x10E3/uL} Normal 0.0-0.2 [facility] Work Phone: Comment on above: PATIENT WAS FASTINGP ERFORMED BY: [facility] Jxhraa6555 [address] RoadDublin [place] [id number] Basophils (Bld) [#/Vol] 0.1 10*3/uL Normal 0.0-0.2 [facility]; [facility] Work Phone: Comment on above: PATIENT WAS FASTINGP ERFORMED BY: [facility] Tvtswi6329 [address] RoadDublin [place] [id number] Basophils/100 WBC (Bld) 1 % Normal C omprehensive Internal Medicine Work Phone: Comment on above: PATIENT WAS FASTINGP ERFORMED BY: CB [facility] Yeusuf6717 [address] RoadDublin [place] [id number] Eosinophils (Bld) [#/Vol] 0.2 {x10E3/uL} Normal 0.0-0. 4 [facility] Work Phone: Comment on above: PATIENT WAS FASTINGP ERFORMED BY: CB [facility] Mmoary6564 [address] RoadDublin [place] [id number] Eosinophils (Bld) [#/Vol] 0.2 10*3/uL Normal 0.0-0.4 [facility]; [facility] Work Phone: Comment on above: PATIENT WAS FASTINGP ERFORMED BY: LEANDER [facility] Whgpdp9500 [address] RoadDublin [place] [id number] Eosinophils/100 WBC (Bld) 4 % Normal [facility] Work Phone: Comment on above: PATIENT WAS FASTINGP ERFORMED BY: [facility] Vebmxa5081 [address] RoadDublin [place] [id number] Erythrocyte distribution width (RBC) [Ratio] 13.1 % Normal 11.7-15.4 Comprehensiv e Internal Medicine Work Phone: Comment on above: PATIENT WAS FASTINGP ERFORMED BY: [facility] Dayybj4863 [address] RoadDublin [place] [id number] Hematocrit (Bld) [Volume fraction] 45.2 % Normal 34.0-46.6 [facility] Work Phone: Comment on above: PATIENT WAS FASTINGP ERFORMED BY: CB [facility] Typvgp2005 [address] RoadDublin [place] [id number] Hemoglobin (Bld) [Mass/Vol] 15.3 g/dL Normal 11.1-15.9 [facility] Work Phone: Comment on above: PATIENT WAS FASTINGP ERFORMED BY: CB [facility] Ixvbpn8858 [address] RoadDublin [place] [id number] Immature granulocytes (Bld) [#/Vol] 0.0 {x10E3/uL} Normal 0.0-0.1 [facility] Work Phone: Comment on above: PATIENT WAS FASTINGP ERFORMED BY: LEANDER [facility] Xxnchq6602 [address] RoadDublin [place] [id number] Immature granulocytes (Bld) [#/Vol] 0.0 10*3/uL Normal 0.0-0.1 [facility]; [facility] Work Phone: Comment on above: PATIENT WAS FASTINGP ERFORMED BY: LEANDER [facility] Putlah4423 [address] RoadDublin [place] [id number] Immature granulocytes/100 WBC (Bld) 1 % Normal [facility] Work Phone: Comment on above: PATIENT WAS FASTINGP ERFORMED BY: LEANDER LabL[facility] Pzlliv9202 [address] RoadDublin [place] [id number] Lymphocytes (Bld) [#/Vol] 1.6 {x10E3/uL} Normal 0.7-3. 1 [facility] Work Phone: Comment on above: PATIENT WAS FASTINGP ERFORMED BY: LabL[facility] Kpsdcg6279 [address] RoadDublin [place] [id number] Lymphocytes (Bld) [#/Vol] 1.6 10*3/uL Normal 0.7-3.1 [facility]; [facility] Work Phone: Comment on above: PATIENT WAS FASTINGP ERFORMED BY: LabBarnes-Jewish Saint Peters HospitalFbptxn7401 [address] RoadDublin [place] [id number] Lymphocytes/100 WBC (Bld) 27 % Normal [facility] Work Phone: Comment on above: PATIENT WAS FASTINGP ERFORMED BY: LabCo Fkcnrp4420 [address] RoadDublin [place] [id number] MCH (RBC) [Entitic mass] 31.5 pg Normal 26.6-33.0 [facility] Work Phone: Comment on above: PATIENT WAS FASTINGP ERFORMED BY: [facility] Ojkbxz0190 [address] RoadDublin [place] [id number] MCHC (RBC) [Mass/Vol] 33.8 g/dL Normal 31.5-35.7 [facility]erensive Internal Medicine Work Phone: Comment on above: PATIENT WAS FASTINGP ERFORMED BY: LEANDER LabCoagusto Jxfbll6178 [address] [facility]in [place] [id number] MCV (RBC) [Entitic vol] 93 fL Normal 79-97 [facility] Internal [facility] Work Phone: Comment on above: PATIENT WAS FASTINGP ERFORMED BY: LEANDER [facility] Fsstrn3518 [address] [facility] [id number] Monocytes (Bld) [#/Vol] 0.5 {x10E3/uL} Normal 0.1-0.9 [facility] Internal Medicine Work Phone: Comment on above: PATIENT WAS FASTINGP ERFORMED BY: LEANDER LabCoagusto MeltonFmhumk0500 [address] [facility] [id number] Monocytes (Bld) [#/Vol] 0.5 10*3/uL Normal 0.1-0.9 [facility]; [facility] Work Phone: Comment on above: PATIENT WAS FASTINGP ERFORMED BY: LEANDER LabCoagusto MeltonJrgblr2278 [address] [facility]in [place] [id number] Monocytes/100 WBC (Bld) 8 % Normal C [facility] Internal Medicine Work Phone: Comment on above: PATIENT WAS FASTINGP ERFORMED BY: LEANDER LabCo Bdncug2166 [address] [facility] [id number] Neutrophils (Bld) [#/Vol] 3.4 {x10E3/uL} Normal 1.4-7. 0 [facility] Work Phone: Comment on above: PATIENT WAS FASTINGP ERFORMED BY: LEANDER [facility] Mtqdvr1656 [address] RoadDublin [place] [id number] Neutrophils (Bld) [#/Vol] 3.4 10*3/uL Normal 1.4-7.0 [facility]; [facility] Work Phone: Comment on above: PATIENT WAS FASTINGP ERFORMED BY: LEANDER [facility] Hftihg6861 [address] [facility] [id number] Neutrophils/100 WBC (Bld) 59 % Normal [facility] Work Phone: Comment on above: PATIENT WAS FASTINGP ERFORMED BY: LEANDER Soni6370 [address] [facility]in [place] [id number] Platelets (Bld) [#/Vol] 226 {x10E3/uL} Normal 150-450 [facility] Work Phone: Comment on above: PATIENT WAS FASTINGP ERFORMED BY: [facility] Dcnbgq2059 [address] [facility] [place] [id number] Platelets (Bld) [#/Vol] 226 10*3/uL Normal 150-450 [facility]; [facility] Work Phone: Comment on above: PATIENT WAS FASTINGP ERFORMED BY: [facility] Itursn1267 [facility] [id number] RBC (Bld) [#/Vol] 4.86 {x10E6/uL} Normal 3.77-5.28 [facility] Internal Medicine Work Phone: Comment on above: PATIENT WAS FASTINGP ERFORMED BY: [facility] Alxjme5701 [facility] [id number] RBC (Bld) [#/Vol] 4.86 10*6/uL Normal 3.77-5.28 [facility]erens[facility] Internal Medicine; [facility] Work Phone: Comment on above: PATIENT WAS FASTINGP ERFORMED BY: [facility] Klnvpk2385 [facility] [id number] WBC (Bld) [#/Vol] 5.9 {x10E3/uL} Normal 3.4-10.8 [facility] Internal Medicine Work Phone: Comment on above: PATIENT WAS FASTINGP ERFORMED BY: Sarah Xmsayc2145 M[address] [facility]blin [place] [id number] WBC (Bld) [#/Vol] 5.9 10*3/uL Normal 3.4-10.8 [facility] Internal Medicine; [facility] Work Phone: Comment on above: PATIENT WAS FASTINGP ERFORMED BY: LEANDER [facility] Sncquc2880 [address] RoadDublin [place] [id number] Metabolic Panel, Comprehensi ve ([id number])Ordered By: Time Recorder on 07-30-2019 Albumin [Mass/Vol] 4.6 g/dL Normal 3.8-4.8 [facility] Internal Medicine Work Phone: Comment on above: PATIENT WAS FASTINGP ERFORMED BY: CB [facility] Ahrzxy2684 [address] RoadDublin [place] [id number] Albumin/Globulin [Mass ratio] 2.6 {ratio} Abnormal 1.2-2.2 [facility] Work Phone: Comment on above: PATIENT WAS FASTINGP ERFORMED BY: LEANDER [facility] Evdwzo7226 [address] RoadDublin [place] [id number] ALP [Catalytic activity/Vol] 105 [iU]/L Normal 39-117 [facility] Work Phone: Comment on above: PATIENT WAS FASTINGP ERFORMED BY: CB [facility] Ekibmv8639 [address] RoadDublin [place] [id number] ALP [Catalytic activity/Vol] 105 U/L Normal 39-117 [facility]; [facility] Work Phone: Comment on above: PATIENT WAS FASTINGP ERFORMED BY: CB [facility] Zwhjhd0311 [address] RoadDublin [place] [id number] ALT [Catalytic activity/Vol] 22 [iU]/L Normal 0-32 [facility] Work Phone: Comment on above: PATIENT WAS FASTINGP ERFORMED BY: CB [facility] Zkgzay7524 [address] RoadDublin [place] [id number] ALT [Catalytic activity/Vol] 22 U/L Normal 0-32 [facility]; [facility] Work Phone: Comment on above: PATIENT WAS FASTINGP ERFORMED BY: CB [facility] Lmqruw1658 [address] RoadDublin [place] [id number] AST [Catalytic activity/Vol] 16 [iU]/L Normal 0-40 [facility] Work Phone: Comment on above: PATIENT WAS FASTINGP ERFORMED BY: [facility] Xahihe9639 [address] RoadDublin [place] [id number] AST [Catalytic activity/Vol] 16 U/L Normal 0-40 [facility]; [facility] Work Phone: Comment on above: PATIENT WAS FASTINGP ERFORMED BY: [facility] Pnloqk3744 [address] RoadDublin [place] [id number] Bilirubin [Mass/Vol] 0.6 mg/dL Normal 0.0-1.[address] [facility] rehensive Internal Medicine Work Phone: Comment on above: PATIENT WAS FASTINGP ERFORMED BY: [facility] Xudefg7889 [address] RoadDublin [place] [id number] Calcium [Mass/Vol] 9.3 mg/dL Normal 8.7-10.3 [facility] Internal Medicine Work Phone: Comment on above: PATIENT WAS FASTINGP ERFORMED BY: [facility] Qnwfwb8224 Mata RoadDuin [place] [id number] Chloride [Moles/Vol] 101 mmol/L Normal 96-106 [facility] Work Phone: Comment on above: PATIENT WAS FASTINGP ERFORMED BY: [facility] Zmnuzt6152 [address]ata RoadDublin [place] [id number] CO2 [Moles/Vol] 24 mmol/L Normal 20-29 [facility] Internal Medicine Work Phone: Comment on above: PATIENT WAS FASTINGP ERFORMED BY: [facility] Gpohpe1837 [address]ata RoadDublin [place] [id number] Creatinine [Mass/Vol] 0.79 mg/dL Normal 0.57-1.00 [facility] Work Phone: Comment on above: PATIENT WAS FASTINGP ERFORMED BY: CB [facility] Wohjsc3224 [address] RoadDublin [place] [id number] GFR/1.73 sq M predicted among blacks CKD-EPI (S/P/Bld) [Vol rate/Area] 91 mL/min/1.73 Normal [facility] Internal Medicine Work Phone: Comment on above: PATIENT WAS FASTINGP ERFORMED BY: [facility] Uaicqb9100 [address]ata RoadDublin [place] [id number] GFR/1.73 sq M predicted among non-blacks CKD-EPI (S/P/Bld) [Vol rate/Area] 79 mL/min/1.73 Normal [facility] Internal Medicine Work Phone: Comment on above: PATIENT WAS FASTINGP ERFORMED BY: CB [facility] Welgbv3891 [address] RoadDublin [place] [id number] Globulin (S) [Mass/Vol] 1.8 g/dL Normal 1.5-4.[address] [facility] Internal Medicine Work Phone: Comment on above: PATIENT WAS FASTINGP ERFORMED BY: [facility] Zjrnnd3174 [address] RoadDublin [place] [id number] Glucose [Mass/Vol] 102 mg/dL Abnormal 65-99 [facility] Internal Medicine Work Phone: Comment on above: PATIENT WAS FASTINGP ERFORMED BY: [facility] Eyhqto3702 [address] RoadDublin [place] [id number] Potassium [Moles/Vol] 4.9 mmol/L Normal 3.5-5.2 [facility] Internal Medicine Work Phone: Comment on above: PATIENT WAS FASTINGP ERFORMED BY: [facility] Azxfhl9290 [address] RoadDublin [place] [id number] Protein [Mass/Vol] 6.4 g/dL Normal 6.0-8.5 [facility] Internal Medicine Work Phone: Comment on above: PATIENT WAS FASTINGP ERFORMED BY: [facility] Ueqvyc1472 [address] RoadDublin [place] [id number] Sodium [Moles/Vol] 139 mmol/L Normal 134-144 [facility] Internal Medicine Work Phone: Comment on above: PATIENT WAS FASTINGP ERFORMED BY: [facility] Axvqkm3247 [address] RoadDublin [place] [id number] Urea nitrogen [Mass/Vol] 21 mg/dL Normal 8-27 [facility] Work Phone: Comment on above: PATIENT WAS FASTINGP ERFORMED BY: LEANDER [employer] [facility] Rzsnss2249 [facility] [id number] Urea nitrogen/Creatinine [Mass ratio] 27 mg/mg Normal 12- [facility] Work Phone: Comment on above: PATIENT WAS FASTINGP ERFORMED BY: LEANDER [facility] Zxjifc2859 [facility] [id number] NMR Profile (13078)Ordered B y: Time Recorder on 07-30-2019 Cholesterol [Mass/Vol] 273 mg/dL Abnormal 100-199 [facility] Internal Medicine Work Phone: Comment on above: Test(s) 493133-UMU-H ; 153954-SVB-Y; 475806-ZDI-O; 932043-Cilsqtmgcpnif; 635271-Xgmqjwcombl, Total; 415198-FTH-P (Total);289676-Zmjiu LDL-P; 183664-IYY Size; 409656-TN-GB Scorewas developed and its performance characteristics determinedby [employer]. It has not been cleared or approved by the Foodand Drug Administration.PATIENT WAS FASTINGPERFORMED BY: [employer] [id number] Lipoprotein.alpha [Moles/Vol] 40.1 umol/L Normal [facility] Internal Medicine Work Phone: Comment on above: Test(s) 194412-HNW-Y ; 040164-XQH-G; 836912-ECL-X; 997427-Ydeaapikpfyep; 460528-Vmomggzalmu, Total; 647897-CSF-D (Total);853048-Djndi LDL-P; 824195-ZRZ Size; 523751-WS-MD Scorewas developed and its performance characteristics determinedby [employer]. It has not been cleared or approved by the Foodand Drug Administration.PATIENT WAS FASTINGPERFORMED BY: [employer] [address] [id number] Lipoprotein.beta.subpartic le [Entitic length] 21.6 nm Normal [facility] Internal Medicine Work Phone: Comment on above: INTERPRETATIVE INFORMATION PARTICLE CONCENTRATION AND SIZE <--Lower CVD Risk Higher CVD Risk--> LDL AND HDL PARTICLES Percentile in Reference Population HDL-P (total) High 75th 50th 25th Low >34.9 34.9 30.5 26.7 <26.7 . Small LDL-P Low 25th 50th 75th High <117 117 527 839 >839 . LDL Size <-Large (Pattern A)-> <-Small (Pattern B)-> 23.0 20.6 20.5 19.0 [address] LDL-P and LDL Size are associated with CVD risk, but not afterLDL-P is taken into account. Test(s) 453848-YSG-C ; 499923-SPO-E; 548242-SGG-K; 052978-Vjfaicqwifmgm; 183312-Qyulonzlbqg, Total; 067150-KKS-C (Total);925610-Bwkpj LDL-P; 266046-LCC Size; 024179-ZE-ZG Scorewas developed and its performance characteristics determinedby [employer]. It has not been cleared or approved by the Foodand Drug Administration.PATIENT WAS FASTINGPERFORMED BY: [address] [id number] Lipoprotein.beta.subpartic le [Moles/Vol] 1714 nmol/L Abnormal [facility] Work Phone: Comment on above: Low < 1000 Moderate 1000 - 1299 Borderline-High 1300 - 1599 High 1600 - 2000 Very High > 2000 Test(s) 465501-SCT-E ; 186216-JSD-E; 764168-BXO-S; 368381-Gvqbytnhgabzd; 060592-Vzknudqwrlo, Total; 699195-TZD-K (Total);523663-Iuhhh LDL-P; 839789-RHY Size; 113530-MG-XP Scorewas developed and its performance characteristics determinedby [employer]. It has not been cleared or approved by the Foodand Drug Administration.PATIENT WAS FASTINGPERFORMED BY: [employer] [address] [id number] Lipoprotein.beta.subpartic le.small [Moles/Vol] <90 Normal [facility]pre[facility] Internal Medicine Work Phone: Comment on above: Test(s) 074221-SBB-B ; 394837-VGW-K; 206563-OGO-Z; 015059-Cyqhiuygtgvdz; 277424-Jvkhvwrgszy, Total; 865329-INJ-W (Total);691098-Rpgya LDL-P; 462656-PDK Size; 685140-BX-FF Scorewas developed and its performance characteristics determinedby [employer]. It has not been cleared or approved by the Foodand Drug Administration.PATIENT WAS FASTINGPERFORMED BY: [employer] [address] [id number] Triglyceride [Mass/Vol] 80 mg/dL Normal 0-[address] [facility] Internal Medicine Work Phone: Comment on above: Test(s) 073305-XUV-S ; 743954-BIP-P; 300987-HHX-N; 516268-Eywsoypowrjbs; 280045-Wonnymjhexk, Total; 890984-RSC-Z (Total);946551-Apopj LDL-P; 423178-QGP Size; 756541-QX-PB Scorewas developed and its performance characteristics determinedby [employer]. It has not been cleared or approved by the Foodand Drug Administration.PATIENT WAS FASTINGPERFORMED BY: [employer] [address] [id number] NMR Profile (20300) 95 mg/dL Normal [facility] Internal Medicine Work Phone: Comment on above: Test(s) 268846-WNC-Q ; 671434-FZV-Y; 851860-EJL-E; 021941-Ufkqdjdqlfhwn; 646925-Lwfiewtwefl, Total; 741840-XWT-K (Total);123599-Etuhe LDL-P; 743315-AAD Size; 829148-GA-UL Scorewas developed and its performance characteristics determinedby [employer]. It has not been cleared or approved by the Foodand Drug Administration.PATIENT WAS FASTINGPERFORMED BY: [employer] [address] [id number] NMR Profile (41299) 162 mg/dL Abnormal 0-99 [facility] Internal Medicine Work Phone: Comment on above: . Optimal < 100 Abov e optimal 100 - 129 Borderline 130 - 159 High 160 - 189 Very high > 189 .LDL-C is inaccurate if patient is non-fasting. Test(s) 039918-XXD-X ; 920996-JEA-J; 647014-HVJ-C; 862201-Btmwvrqzotmwy; 137082-Tskbapnokva, Total; 874206-FRE-M (Total);502049-Zrvgd LDL-P; 110000-DDH Size; 208940-ZG-EX Scorewas developed and its performance characteristics determinedby [employer]. It has not been cleared or approved by the Foodand Drug Administration.PATIENT WAS FASTINGPERFORMED BY: [employer] [address] [id number] CBC & PLATELETS (AUTO) (8502 7)Ordered By: Time Recorder on 11-11-2018 Erythrocyte distribution width (RBC) [Ratio] 13.0 % Normal 12.3-15.4 Comprehensiv e Internal Medicine Work Phone: Comment on above: PATIENT WAS FASTINGP ERFORMED BY: [employer] Egncfb9044 [facility] [id number] Hematocrit (Bld) [Volume fraction] 43.7 % Normal 34.0-46.6 [facility] Work Phone: Comment on above: PATIENT WAS FASTINGP ERFORMED BY: [employer] Qihlaq4196 [facility] [id number] Hemoglobin (Bld) [Mass/Vol] 15.3 g/dL Normal 11.1-15.9 [facility] Work Phone: Comment on above: PATIENT WAS FASTINGP ERFORMED BY: LEANDER [facility] Yfzhew2414 [address] RoadDublin [place] [id number] MCH (RBC) [Entitic mass] 31.7 pg Normal 26.6-33.0 [facility] Work Phone: Comment on above: PATIENT WAS FASTINGP ERFORMED BY: LEANDER [facility] Kliazr6969 [address] RoadDublin [place] [id number] MCHC (RBC) [Mass/Vol] 35.0 g/dL Normal 31.5-35.7 [facility] Work Phone: Comment on above: PATIENT WAS FASTINGP ERFORMED BY: LEANDER [facility] Vckcgq1296 [address] RoadDublin [place] [id number] MCV (RBC) [Entitic vol] 91 fL Normal 79-[address] [facility] Internal Medicine Work Phone: Comment on above: PATIENT WAS FASTINGP ERFORMED BY: LEANDER [facility] Ixdcjr1012 [address] RoadDublin [place] [id number] Platelets (Bld) [#/Vol] 250 {x10E3/uL} Normal 150-450 [facility] Work Phone: Comment on above: PATIENT WAS FASTINGP ERFORMED BY: LEANDER [facility] Fpbxeh1559 [address] RoadDublin [place] [id number] Platelets (Bld) [#/Vol] 250 10*3/uL Normal 150-450 [facility]; [facility] Work Phone: Comment on above: PATIENT WAS FASTINGP ERFORMED BY: LEANDER [facility] Sljwff2621 [address] RoadDublin [place] [id number] RBC (Bld) [#/Vol] 4.83 {x10E6/uL} Normal 3.77-5.28 [facility] Internal Medicine Work Phone: Comment on above: PATIENT WAS FASTINGP ERFORMED BY: CB [facility] Rkqpxh6531 [address] RoadDublin [place] [id number] RBC (Bld) [#/Vol] 4.83 10*6/uL Normal 3.77-5.28 [facility]; [facility] Work Phone: Comment on above: PATIENT WAS FASTINGP ERFORMED BY: CB [facility] Fqcycl7005 [address] RoadDublin [place] [id number] WBC (Bld) [#/Vol] 6.3 {x10E3/uL} Normal 3.4-10.8 [facility] Work Phone: Comment on above: PATIENT WAS FASTINGP ERFORMED BY: CB [facility] Tcfbpf2836 [address] RoadDublin [place] [id number] WBC (Bld) [#/Vol] 6.3 10*3/uL Normal 3.4-10.8 [facility] Internal Medicine; [facility] Work Phone: Comment on above: PATIENT WAS FASTINGP ERFORMED BY: CB [facility] Vuprax8861 [address]Dublin [place] [id number] LIPID PANEL (82257)Ordered B y: Time Recorder on 11-11-2018 Cholesterol [Mass/Vol] 252 mg/dL Abnormal 100-199 [facility] Internal Medicine Work Phone: Comment on above: PATIENT WAS FASTINGP ERFORMED BY: CB [facility] Piusks2869 [address] RoadDublin [place] [id number] Cholesterol in HDL [Mass/Vol] 99 mg/dL Normal [facility] Work Phone: Comment on above: PATIENT WAS FASTINGP ERFORMED BY: CB [facility] Droejb1206 [address] RoadDublin [place] [id number] Cholesterol in LDL [Mass/Vol] 144 mg/dL Abnormal 0-99 [facility] Work Phone: Comment on above: PATIENT WAS FASTINGP ERFORMED BY: CB [facility] Cfpadu0348 [address] RoadDublin [place] [id number] Cholesterol in LDL/Cholesterol in HDL [Mass ratio] 1.5 {ratio} Normal 0.0-3.2 [facility] Work Phone: Comment on above: LDL/HDL Ratio Men Wo men 1/2 Avg.Risk 1.0 1.5 Avg.Risk 3.6 3.2 2X Avg.Risk 6.2 5.0 3X Avg.Risk 8.0 6.1 PATIENT WAS FASTINGP ERFORMED BY: LEANDER [facility] Rfyehr4099 [address] RoadDublin [place] [id number] Cholesterol in VLDL [Mass/Vol] 9 mg/dL Normal 5-40 [facility] Work Phone: Comment on above: PATIENT WAS FASTINGP ERFORMED BY: LEANDER [facility] Txavwx9383 [address] RoadDublin [place] [id number] Triglyceride [Mass/Vol] 47 mg/dL Normal 0-149 C omprehensive Internal Medicine Work Phone: Comment on above: PATIENT WAS FASTINGP ERFORMED BY: LEANDER [facility] Ilglfe3967 Mata RoadDublin [place] [id number] Metabolic Panel, Comprehensi ve (04746)Ordered By: Time Recorder on 11-11-2018 Albumin [Mass/Vol] 4.7 g/dL Normal 3.6-4.8 [facility] Internal Medicine Work Phone: Comment on above: PATIENT WAS FASTINGP ERFORMED BY: LEANDER [facility] Ucfqst5781 [address] RoadDublin [place] [id number] Albumin/Globulin [Mass ratio] 2.4 {ratio} Abnormal 1.2-2.2 [facility] Work Phone: Comment on above: PATIENT WAS FASTINGP ERFORMED BY: LEANDER [facility] Tvbaay3843 [address] RoadDublin [place] [id number] ALP [Catalytic activity/Vol] 102 [iU]/L Normal 39-117 [facility] Work Phone: Comment on above: PATIENT WAS FASTINGP ERFORMED BY: LEANDER [facility] Gcqbbt7905 [address] RoadDublin [place] [id number] ALP [Catalytic activity/Vol] 102 U/L Normal 39-117 [facility]; [facility] Work Phone: Comment on above: PATIENT WAS FASTINGP ERFORMED BY: LEANDER [facility] Boxfwt4027 [address] RoadDublin [place] [id number] ALT [Catalytic activity/Vol] 24 [iU]/L Normal 0-32 [facility] Work Phone: Comment on above: PATIENT WAS FASTINGP ERFORMED BY: LEANDER [facility] Ejcvlc9625 [address] RoadDublin [place] [id number] ALT [Catalytic activity/Vol] 24 U/L Normal 0-32 [facility]; [facility] Work Phone: Comment on above: PATIENT WAS FASTINGP ERFORMED BY: LEANDER [facility] Txxaud5833 [address] RoadDublin [place] [id number] AST [Catalytic activity/Vol] 18 [iU]/L Normal 0-40 [facility] Work Phone: Comment on above: PATIENT WAS FASTINGP ERFORMED BY: LEANDER [facility] Uljddf3312 [address] RoadDublin [place] [id number] AST [Catalytic activity/Vol] 18 U/L Normal 0-40 [facility]; [facility] Work Phone: Comment on above: PATIENT WAS FASTINGP ERFORMED BY: LEANDER [facility] Nzqlmm6481 [address] RoadDublin [place] [id number] Bilirubin [Mass/Vol] 0.6 mg/dL Normal 0.0-1.2 Comp rehensive Internal Medicine Work Phone: Comment on above: PATIENT WAS FASTINGP ERFORMED BY: LEANDER [facility] Akvxfs1858 [address] RoadDublin [place] [id number] Calcium [Mass/Vol] 9.5 mg/dL Normal 8.7-10.3 [facility] Internal Medicine Work Phone: Comment on above: PATIENT WAS FASTINGP ERFORMED BY: CB [facility] Jptiqr4340 [address] RoadDublin [place] [id number] Chloride [Moles/Vol] 105 mmol/L Normal 96-106 Comp rehensive Internal Medicine Work Phone: Comment on above: PATIENT WAS FASTINGP ERFORMED BY: LEANDER [facility] Yezsgy6152 [address] RoadDublin [place] [id number] CO2 [Moles/Vol] 23 mmol/L Normal 20-29 [facility] Work Phone: Comment on above: PATIENT WAS FASTINGP ERFORMED BY: LEANDER [facility] Vnhsav0104 [address] RoadDublin [place] [id number] Creatinine [Mass/Vol] 0.74 mg/dL Normal 0.57-1.00 [facility] Work Phone: Comment on above: PATIENT WAS FASTINGP ERFORMED BY: CB [facility] Hsddkd5900 [address] RoadDublin [place] [id number] GFR/1.73 sq M predicted among blacks CKD-EPI (S/P/Bld) [Vol rate/Area] 99 mL/min/1.73 Normal [facility] Internal Medicine Work Phone: Comment on above: PATIENT WAS FASTINGP ERFORMED BY: [facility] Yooggy4385 [address] RoadDublin [place] [id number] GFR/1.73 sq M predicted among non-blacks CKD-EPI (S/P/Bld) [Vol rate/Area] 86 mL/min/1.73 Normal [facility] Internal Medicine Work Phone: Comment on above: PATIENT WAS FASTINGP ERFORMED BY: [facility] Hfsley2495 [address] RoadDuin [place] [id number] Globulin (S) [Mass/Vol] 2.0 g/dL Normal 1.5-4.[address] [facility] Internal Medicine Work Phone: Comment on above: PATIENT WAS FASTINGP ERFORMED BY: [facility] Ifvvtf9972 M[address] RoadDublin [place] [id number] Glucose [Mass/Vol] 95 mg/dL Normal 65-99 [facility] Internal Medicine Work Phone: Comment on above: PATIENT WAS FASTINGP ERFORMED BY: [facility] Uohuzf3251 [address] RoadDublin [place] [id number] Potassium [Moles/Vol] 4.4 mmol/L Normal 3.5-5.2 [facility] Internal Medicine Work Phone: Comment on above: PATIENT WAS FASTINGP ERFORMED BY: CB [facility] Qnapck5340 [address] RoadDublin [place] [id number] Protein [Mass/Vol] 6.7 g/dL Normal 6.0-8.5 [facility] Internal Medicine Work Phone: Comment on above: PATIENT WAS FASTINGP ERFORMED BY: LEANDER [facility] Okkbyh3964 [facility] [id number] Sodium [Moles/Vol] 142 mmol/L Normal 134-144 [facility] Internal Medicine Work Phone: Comment on above: PATIENT WAS FASTINGP ERFORMED BY: [facility] Yzzneg7062 [facility] [id number] Urea nitrogen [Mass/Vol] 11 mg/dL Normal 8-27 [facility] Internal Medicine Work Phone: Comment on above: PATIENT WAS FASTINGP ERFORMED BY: LEANDER [facility] Ixmhyo8734 [facility] [id number] Urea nitrogen/Creatinine [Mass ratio] 15 mg/mg Normal 12- [facility] Internal Medicine Work Phone: Comment on above: PATIENT WAS FASTINGP ERFORMED BY: [facility] Qyugxm8573 [facility] [id number] T3, FREE (TRIDOTHYRONINE) (4 0311)Ordered By: Time Recorder on 11-11-2018 Free T3 [Mass/Vol] 2.6 pg/mL Normal 2.0-4.4 [facility] Internal Medicine Work Phone: Comment on above: PATIENT WAS FASTINGP ERFORMED BY: LEANDER [facility]6370 [facility] [id number] T4, FREE (THYROXINE) (07111) Ordered By: Time Recorder on 11-11-2018 Free T4 [Mass/Vol] 1.18 ng/dL Normal 0.82-1.77 [facility] Internal Medicine Work Phone: Comment on above: PATIENT WAS FASTINGP ERFORMED BY: LabM[facility]6370 [facility] [id number] TSH (THYROID STIMULATING HOR SUZY) ([id number])Ordered By: Time Recorder on 11-11-2018 TSH Qn 2.500 {uIU/mL} Normal 0.450-4.50 0 [facility] Internal Medicine Work Phone: Comment on above: PATIENT WAS FASTINGP ERFORMED BY: LEANDER [facility] Sksikf7920 [facility] [id number] Vital Signs Date Time Vital Sign Value Performing Clinician Facility 08-15-2022 14:35-0400 Body height 173.99 cm Mary Ann Slarb [employer] TECHN[employer] [facility]; [facility] Work Phone: 08-15-2022 14:35-0400 Body mass index (BMI) [Ratio] 28.17 kg/m2 Mary Ann Slarb [employer] TECHN[employer] [facility]; [facility] Work Phone: 08-15-2022 14:35-0400 Body surface area Derived from formula 2 m2 Mary Ann Slarb [employer] TECHNIC[employer] [facility]; [facility] Work Phone: 08-15-2022 14:35-0400 Body temperature 97.9 [degF] Mary Ann Slarb [employer] TECHNICIAN [facility]; [facility] Work Phone: Comment on above: Method: Temporal 08-15-2022 14:35-0400 Body weight 85.28 kg Mary Ann Slarb [employer] TECHNIC[employer] [facility]; [facility] Work Phone: 08-15-2022 14:35-0400 Diastolic blood pressure 82 mm[Hg] Mary Ann Slarb [employer] TECHNIC[employer] [facility]; [facility] Work Phone: Comment on above: Patient Position: Sitting; Cuff Location : Left Arm; Cuff Size: Standard 08-15-2022 14:35-0400 Heart rate 88 /min Mary Ann Slarb [employer] TECHNICIAN [facility]; [facility] Work Phone: Comment on above: Pattern: Regular 08-15-2022 14:35-0400 Respiratory rate 17 /min Mary Ann Slarb [employer] TECHNICIAN [facility]; [facility] Work Phone: Comment on above: Pattern: Unlabored 08-15-2022 14:35-0400 SaO2% (BldA) [Mass fraction] 99 % Mary Ann Slarb [employer] TECHNICIAN [facility]; [facility] Work Phone: Comment on above: Room air 08-15-2022 14:35-0400 Systolic blood pressure 126 mm[Hg] Mary Ann Slarb [employer] TECHNICIAN [facility]; [facility] Work Phone: Comment on above: Patient Position: Sitting; Cuff Location : Left Arm; Cuff Size: Standard 11-14-2021 09:01-0400 Body height 173.99 cm Mary Ann Daianarb [employer] TECHNICIAN [facility]; [facility] Work Phone: 11-14-2021 09:01-0400 Body mass index (BMI) [Ratio] 27.27 kg/m2 Mary Ann Slarb [employer] TECHNICIAN [facility]; [facility] Work Phone: 11-14-2021 09:01-0400 Body surface area Derived from formula 1.97 m2 Mary Ann Slarb [employer] TECHNICIAN [facility]; [facility] Work Phone: 11-14-2021 09:01-0400 Body temperature 98.5 [degF] Mary Ann Slarb [employer] TECHNICIAN [facility]; [facility] Work Phone: 11-14-2021 09:01-0400 Body weight 82.56 kg Mary Ann Slarb [employer] TECHNICIAN [facility]; [facility] Work Phone: 11-14-2021 09:01-0400 Diastolic blood pressure 82 mm[Hg] Mary Ann Slarb [employer] TECHNICIAN [facility]; [facility] Work Phone: Comment on above: Patient Position: Sitting; Cuff Location : Left Arm; Cuff Size: Standard 11-14-2021 09:01-0400 Heart rate 73 /min Mary Ann Slarb [employer] TECHNICIAN [facility]; [facility] Work Phone: Comment on above: Pattern: Regular 11-14-2021 09:01-0400 Respiratory rate 16 /min Mary Ann Slarb [employer] TECHNICIAN [facility]; [facility] Work Phone: Comment on above: Pattern: Unlabored 11-14-2021 09:01-0400 SaO2% (BldA) [Mass fraction] 99 % Mary Ann Slarb [employer] TECHNICIAN [facility]; [facility] Work Phone: Comment on above: Room air 11-14-2021 09:01-0400 Systolic blood pressure 136 mm[Hg] Mary Ann Cee [employer] TECHNICIAN [facility]; [facility] Work Phone: Comment on above: Patient Position: Sitting; Cuff Location : Left Arm; Cuff Size: Standard 02-20-2021 08:14-0500 Body height 173.99 cm Stacey Long FR[place]N [facility]; [facility] Work Phone: 02-20-2021 08:14-0500 Body mass index (BMI) [Ratio] 27.12 kg/m2 Stacey Long [place]N [facility]; [facility] Work Phone: 02-20-2021 08:14-0500 Body surface area Derived from formula 1.97 m2 Stacey Long [place]N [facility]; [facility] Work Phone: 02-20-2021 08:14-0500 Body temperature 97.9 [degF] Stacey Long FR[place]N [facility]; [facility] Work Phone: Comment on above: Method: Temporal 02-20-2021 08:14-0500 Body weight 82.1 kg Stacey Long [place]N [facility]; [facility] Work Phone: 02-20-2021 08:14-0500 Diastolic blood pressure 90 mm[Hg] Stacey Long FR[place]N [facility]; [facility] Work Phone: Comment on above: Patient Position: Sitting; Cuff Location : Left Arm; Cuff Size: Standard 02-20-2021 08:14-0500 Heart rate 83 /min Stacey Long [place]N [facility]; [facility] Work Phone: Comment on above: Pattern: Regular 02-20-2021 08:14-0500 Respiratory rate 16 /min Stacey Long [facility]; [facility] Work Phone: Comment on above: Pattern: Unlabored 02-20-2021 08:14-0500 SaO2% (BldA) [Mass fraction] 99 % Stacey Long [facility]; [facility] Work Phone: Comment on above: Room air 02-20-2021 08:14-0500 Systolic blood pressure 162 mm[Hg] Stacey Long LPN [facility]; [facility] Work Phone: Comment on above: Patient Position: Sitting; Cuff Location : Left Arm; Cuff Size: Standard 07-25-2020 09:14-0400 Body height 173.99 cm Heath Mackay LPN [facility]; [facility] Work Phone: 07-25-2020 09:14-0400 Body mass index (BMI) [Ratio] 27.72 kg/m2 Heath Mackay LPN [facility]; [facility] Work Phone: 07-25-2020 09:14-0400 Body surface area Derived from formula 1.99 m2 Heath Mackay LPN [facility]; [facility] Work Phone: 07-25-2020 09:14-0400 Body temperature 97.5 [degF] Heath Mackay LPN [facility]; [facility] Work Phone: Comment on above: Method: Infrared 07-25-2020 09:14-0400 Body weight 83.92 kg Heath Mackay LPN [facility]; [facility] Work Phone: 07-25-2020 09:14-0400 Diastolic blood pressure 78 mm[Hg] Heath Mackay LPN [facility]; [facility] Work Phone: Comment on above: Patient Position: Sitting; Cuff Location : Left Arm; Cuff Size: Standard 07-25-2020 09:14-0400 Heart rate 93 /min Heath Mackay LPN [facility]; [facility] Work Phone: Comment on above: Pattern: Regular 07-25-2020 09:14-0400 Respiratory rate 16 /min Heath Mackay LPN [facility]; [facility] Work Phone: Comment on above: Pattern: Unlabored 07-25-2020 09:14-0400 SaO2% (BldA) [Mass fraction] 98 % Heath Mackay LPN [facility]; [facility] Work Phone: Comment on above: Room air 07-25-2020 09:14-0400 Systolic blood pressure 126 mm[Hg] Heath Mackay LPN [facility]; [facility] Work Phone: Comment on above: Patient Position: Sitting; Cuff Location : Left Arm; Cuff Size: Standard 04-11-2020 09:03-0500 BMI (Body Mass Index) 27.72 kg/m2 Heath Mackay LPN [facility]; [facility] Work Phone: 04-11-2020 09:03-0500 Body Temperature 98.4 [degF] Heath Mackay LPN [facility]; [facility] Work Phone: Comment on above: Method: Infrared 04-11-2020 09:03-0500 Body weight 83.92 kg Heath Mackay LPN [facility]; [facility] Work Phone: 04-11-2020 09:03-0500 BP Diastolic 78 mm[Hg] Heath Mackay LPN [facility]; [facility] Work Phone: Comment on above: Patient Position: Sitting; Cuff Location : Left Arm; Cuff Size: Standard 04-11-2020 09:03-0500 BP Systolic 128 mm[Hg] Heath Mackay LPN [facility]; [facility] Work Phone: Comment on above: Patient Position: Sitting; Cuff Location : Left Arm; Cuff Size: Standard 04-11-2020 09:03-0500 BSA (Body Surface Area) 1.99 m2 Heath Mackay LPN [facility]; [facility] Work Phone: 04-11-2020 09:03-0500 Height 173.99 cm Heath Mackay LPN [facility]; [facility] Work Phone: 04-11-2020 09:03-0500 Pulse (Heart Rate) 82 /min Heath Mackay LPN [facility]; [facility] Work Phone: Comment on above: Pattern: Regular 04-11-2020 09:03-0500 Pulse Oximetry 98 % Roly Rahman [facility]; [facility] Work Phone: Comment on above: Room air 04-11-2020 09:03-0500 Respiratory Rate 16 /min Heath Mackay LPN [facility]; [facility] Work Phone: Comment on above: Pattern: Unlabored 04-11-2020 09:03-0500 SaO2% (BldA) [Mass fraction] 98 % Heath Mackay LPN [facility]; [facility] Work Phone: Comment on above: Room air 04-01-2020 08:22-0500 BMI (Body Mass Index) 27.72 kg/m2 Heath Mackay LPN [facility]; [facility] Work Phone: 04-01-2020 08:22-050 Body Temperature 97.8 [degF] Heath Mackay LPN [facility]; [facility] Work Phone: Comment on above: Method: Infrared 04-01-2020 08:22-0500 Body weight 83.92 kg Heath Mackay LPN [facility]; [facility] Work Phone: 04-01-2020 08:22-0500 BP Diastolic 72 mm[Hg] Heath Mackay LPN [facility]; [facility] Work Phone: Comment on above: Patient Position: Sitting; Cuff Location : Left Arm; Cuff Size: Standard 04-01-2020 08:22-0500 BP Systolic 122 mm[Hg] Heath Mackay LPN [facility]; [facility] Work Phone: Comment on above: Patient Position: Sitting; Cuff Location : Left Arm; Cuff Size: Standard 04-01-2020 08:22-0500 BSA (Body Surface Area) 1.99 m2 Heath Mackay LPN [facility]; [facility] Work Phone: 04-01-2020 08:22-0500 Height 173.99 cm Heath Mackay LPN [facility]; [facility] Work Phone: 04-01-2020 08:22-0500 Pulse (Heart Rate) 87 /min Heath Mackay LPN [facility]; [facility] Work Phone: Comment on above: Pattern: Regular 04-01-2020 08:22-0500 Pulse Oximetry 97 % Roly Rahman [facility]; [facility] Work Phone: Comment on above: Room air 04-01-2020 08:22-0500 Respiratory Rate 16 /min Heath Mackay LPN [facility]; [facility] Work Phone: Comment on above: Pattern: Unlabored 04-01-2020 08:22-0500 SaO2% (BldA) [Mass fraction] 97 % Heath Mackay LPN [facility]; [facility] Work Phone: Comment on above: Room air 02-01-2020 12:49-0500 BMI (Body Mass Index) 27.72 kg/m2 Heath Mackay LPN [facility] Work Phone: 02-01-2020 12:49-0500 Body weight 83.92 kg Heath Mackay LPN [facility] Work Phone: 02-01-2020 12:49-0500 BSA (Body Surface Area) 1.99 m2 Heath Mackay LPN [facility] Work Phone: 02-01-2020 12:49-0500 Height 173.99 cm Heath Mackay LPN [facility] Work Phone: 2019 15:56-0400 BMI (Body Mass Index) 27.72 kg/m2 Heath hines [facility] Work Phone: 2019 15:56-0400 Body Temperature 97.5 [degF] Heath Mackay LPN [facility] Work Phone: Comment on above: Method: Temporal 2019 15:56-0400 Body weight 83.92 kg Heath Mackay LPN [facility] Work Phone: 2019 15:56-0400 BP Diastolic 90 mm[Hg] Heath Mackay LPN [facility] Work Phone: Comment on above: Patient Position: Sitting; Cuff Location : Left Arm; Cuff Size: Standard 2019 15:56-0400 BP Systolic 150 mm[Hg] Heath Mackay LPN [facility] Work Phone: Comment on above: Patient Position: Sitting; Cuff Location : Left Arm; Cuff Size: Standard 2019 15:56-0400 BSA (Body Surface Area) 1.99 m2 Heath Mackay LPN [facility] Work Phone: 2019 15:56-0400 Height 173.99 cm Heath Mackay LPN [facility] Work Phone: 2019 15:56-0400 Pulse (Heart Rate) 79 /min Heath Mackay LPN [facility] Work Phone: Comment on above: Pattern: Regular 2019 15:56-0400 Pulse Oximetry 98 % Roly Josiah [facility] Work Phone: Comment on above: Room air 2019 15:56-0400 Respiratory Rate 16 /min Heath Mackay LPN [facility] Work Phone: Comment on above: Pattern: Unlabored 2019 15:56-0400 SaO2% (BldA) [Mass fraction] 98 % Heath Mackay LPN [facility]; [facility] Work Phone: Comment on above: Room air 07-14-2019 12:49-0400 BMI (Body Mass Index) 28.03 kg/m2 Heath Mackay LPN [facility] Work Phone: 07-14-2019 12:49-0400 Body Temperature 98.2 [degF] Heath Mackay LPN [facility] Work Phone: Comment on above: Method: Temporal 07-14-2019 12:49-0400 Body weight 84.84 kg Heath Mackay LPN [facility] Work Phone: 07-14-2019 12:49-0400 BP Diastolic 72 mm[Hg] Heath Mackay LPN [facility] Work Phone: Comment on above: Patient Position: Sitting; Cuff Location : Left Arm; Cuff Size: Standard 07-14-2019 12:49-0400 BP Systolic 124 mm[Hg] Heath Mackay LPN [facility] Work Phone: Comment on above: Patient Position: Sitting; Cuff Location : Left Arm; Cuff Size: Standard 07-14-2019 12:49-0400 BSA (Body Surface Area) 2 m2 Heath Makcay LPN [facility] Work Phone: 07-14-2019 12:49-0400 Height 173.99 cm Heath Mackay LPN [facility] Work Phone: 07-14-2019 12:49-0400 Pulse (Heart Rate) 93 /min Heath Mackay LPN [facility] Work Phone: Comment on above: Pattern: Regular 07-14-2019 12:49-0400 Pulse Oximetry 97 % Roly [facility] Work Phone: Comment on above: Room air 07-14-2019 12:49-0400 Respiratory Rate 16 /min Heath Mackay LPN [facility] Work Phone: Comment on above: Pattern: Unlabored 07-14-2019 12:49-0400 SaO2% (BldA) [Mass fraction] 97 % Heath Mackay LPN [facility]; [facility] Work Phone: Comment on above: Room air 03-20-2019 10:28-0500 BMI (Body Mass Index) 27.87 kg/m2 Leticia Damian RN [facility] Work Phone: 03-20-2019 10:28-0500 Body Temperature 98.4 [degF] Leticia Damian RN [facility] Work Phone: Comment on above: Method: Temporal 03-20-2019 10:28-0500 Body weight 84.37 kg Leticia Damian RN [facility] Work Phone: 03-20-2019 10:28-0500 BP Diastolic 80 mm[Hg] Leticia Damian RN [facility] Work Phone: Comment on above: Patient Position: Sitting; Cuff Location : Left Arm; Cuff Size: Standard 03-20-2019 10:28-0500 BP Systolic 156 mm[Hg] Leticia Damian RN [facility] Work Phone: Comment on above: Patient Position: Sitting; Cuff Location : Left Arm; Cuff Size: Standard 03-20-2019 10:28-0500 BSA (Body Surface Area) 1.99 m2 Leticia Damian RN [facility] Work Phone: 03-20-2019 10:28-0500 Height 173.99 cm Leticia Damian RN [facility] Work Phone: 03-20-2019 10:28-0500 Pulse (Heart Rate) 101 /min Leticia Damian RN [facility] Work Phone: Comment on above: Pattern: Regular 03-20-2019 10:28-0500 Pulse Oximetry 97 % Roly Alaevin [facility] Work Phone: Comment on above: Room air 03-20-2019 10:28-0500 Respiratory Rate 16 /min Leticia Damian RN [facility] Work Phone: Comment on above: Pattern: Unlabored 03-20-2019 10:28-0500 SaO2% (BldA) [Mass fraction] 97 % Leticia Damian RN [facility]; [facility] Work Phone: Comment on above: Room air 11-11-2018 09:26-0400 BMI (Body Mass Index) 27.87 kg/m2 Genet Cameron [facility] Work Phone: 11-11-2018 09:26-0400 Body Temperature 97.4 [degF] Genet Pendleton [facility] Work Phone: Comment on above: Method: Temporal 11-11-2018 09:26-0400 Body weight 84.37 kg Genet Rakesh [facility] Work Phone: 11-11-2018 09:26-0400 BP Diastolic 78 mm[Hg] Genet Datadecision [facility] Work Phone: Comment on above: Patient Position: Sitting; Cuff Location : Left Arm; Cuff Size: Standard 11-11-2018 09:26-0400 BP Systolic 124 mm[Hg] Genet Rakesh [facility] Work Phone: Comment on above: Patient Position: Sitting; Cuff Location : Left Arm; Cuff Size: Standard 11-11-2018 09:26-0400 BSA (Body Surface Area) 1.99 m2 Genet Datade[employer]ision [facility] Work Phone: 11-11-2018 09:26-0400 Height 173.99 cm Genet [employer] [facility] Work Phone: 11-11-2018 09:26-0400 Pulse (Heart Rate) 87 /min Genet [employer] [facility] Work Phone: Comment on above: Pattern: Regular 11-11-2018 09:26-0400 Pulse Oximetry 99 % Roly Rahman [facility] Work Phone: Comment on above: Room air 11-11-2018 09:26-0400 Respiratory Rate 16 /min Genet [employer] [facility] Work Phone: Comment on above: Pattern: Unlabored 11-11-2018 09:26-0400 SaO2% (BldA) [Mass fraction] 99 % Genet Datade[employer]ision [facility]; [facility] Work Phone: Comment on above: Room air 02-28-2016 08:31-0500 BMI (Body Mass Index) 25.88 kg/m2 Mary Ann Slarb [employer] TE[employer] [facility] Work Phone: 02-28-2016 08:31-0500 Body Temperature 98.4 [degF] Mary Ann Slarb [employer] TECHN[employer] [facility] Work Phone: 02-28-2016 08:31-0500 Body weight 78.93 kg Mary Ann Slarb [employer] TE[employer] [facility] Work Phone: 02-28-2016 08:31-0500 BP Diastolic 80 mm[Hg] Mary Ann Slarb [employer] TECH[employer] [facility] Work Phone: Comment on above: Patient Position: Sitting; Cuff Location : Left Arm; Cuff Size: Standard 02-28-2016 08:31-0500 BP Systolic 122 mm[Hg] Mary Ann Slarb [employer] TECHNIC[employer] [facility] Work Phone: Comment on above: Patient Position: Sitting; Cuff Location : Left Arm; Cuff Size: Standard 02-28-2016 08:31-0500 BSA (Body Surface Area) 1.94 m2 Mary Ann Slarb [employer] TECHN[employer] [facility] Work Phone: 02-28-2016 08:31-0500 Height 174.63 cm Mary Ann Cee LPN [facility] Work Phone: 02-28-2016 08:31-0500 Pulse (Heart Rate) 92 /min Mary Ann Cee LPN [facility] Work Phone: Comment on above: Pattern: Regular 02-28-2016 08:31-0500 Pulse Oximetry 98 % Roly Josiah [facility] Work Phone: Comment on above: Room air 02-28-2016 08:31-0500 Respiratory Rate 16 /min Mary Ann Cee LPN [facility] Work Phone: Comment on above: Pattern: Unlabored 02-28-2016 08:31-0500 SaO2% (BldA) [Mass fraction] 98 % [facility]; [facility] Work Phone: Comment on above: Room air 06-24-2015 08:05-0400 BMI (Body Mass Index) 25.88 kg/m2 Heidy Crockett [facility] Work Phone: 06-24-2015 08:05-0400 Body Temperature 98.1 [degF] Heidy Crockett [facility] Work Phone: Comment on above: Method: Oral 06-24-2015 08:05-0400 Body weight 78.93 kg Heidy Crockett [facility] Work Phone: 06-24-2015 08:05-0400 BP Diastolic 70 mm[Hg] Heidy Crockett [facility] Work Phone: Comment on above: Patient Position: Sitting; Cuff Location : Left Arm; Cuff Size: Standard 06-24-2015 08:05-0400 BP Systolic 130 mm[Hg] Heidy Crockett [facility] Work Phone: Comment on above: Patient Position: Sitting; Cuff Location : Left Arm; Cuff Size: Standard 06-24-2015 08:05-0400 BSA (Body Surface Area) 1.94 m2 Heidy Crockett [facility] Work Phone: 06-24-2015 08:05-0400 Height 174.63 cm Heidy Crockett [facility] Work Phone: 06-24-2015 08:05-0400 Pulse (Heart Rate) 81 /min Heidy Crockett [facility] Work Phone: Comment on above: Pattern: Regular 06-24-2015 08:05-0400 Pulse Oximetry 98 % Roly Rahman [facility] Work Phone: Comment on above: Room air 06-24-2015 08:05-0400 Respiratory Rate 16 /min Heidy Crockett [facility] Work Phone: Comment on above: Pattern: Unlabored 06-24-2015 08:05-0400 SaO2% (BldA) [Mass fraction] 98 % Heidy Crockett [facility]; [facility] Work Phone: Comment on above: Room air 05-05-2014 08:18-0500 BMI (Body Mass Index) 24.39 kg/m2 Tata A Fast DO Work Phone: [facility] Work Phone: 05-05-2014 08:18-0500 Body Temperature 97.8 [degF] Tata A Fast DO Work Phone: [facility] Work Phone: Comment on above: Method: Oral 05-05-2014 08:18-0500 Body weight 74.39 kg Tata A Fast DO Work Phone: [facility] Work Phone: 05-05-2014 08:18-0500 BP Diastolic 74 mm[Hg] Tata A Fast DO Work Phone: [facility] Work Phone: Comment on above: Patient Position: Sitting; Cuff Location : Left Arm; Cuff Size: Large 05-05-2014 08:18-0500 BP Systolic 110 mm[Hg] Tata A Fast DO Work Phone: [facility] Work Phone: Comment on above: Patient Position: Sitting; Cuff Location : Left Arm; Cuff Size: Large 05-05-2014 08:18-0500 BSA (Body Surface Area) 1.89 m2 Tata A Fast DO Work Phone: [facility] Work Phone: 05-05-2014 08:18-0500 Height 174.63 cm Tata A Fast DO Work Phone: [facility] Work Phone: 05-05-2014 08:18-0500 Pulse (Heart Rate) 78 /min Tata A Fast DO Work Phone: [facility] Work Phone: Comment on above: Pattern: Regular 05-05-2014 08:18-0500 Respiratory Rate 16 /min Tata A Fast DO Work Phone: [facility] Work Phone: Comment on above: Pattern: Unlabored 04-22-2013 08:48-0500 BMI (Body Mass Index) 29.6 kg/m2 Deandra Membreno [facility] Work Phone: 04-22-2013 08:48-0500 Body Temperature 98.5 [degF] Deandra Membreno [facility] Work Phone: 04-22-2013 08:48-0500 Body weight 90.27 kg Deandra Membreno [facility] Work Phone: 04-22-2013 08:48-0500 BP Diastolic 66 mm[Hg] Deandra Membreno [facility] Work Phone: Comment on above: Patient Position: Sitting; Cuff Location : Left Arm; Cuff Size: Large 04-22-2013 08:48-0500 BP Systolic 94 mm[Hg] Deandra Membreno [facility] Work Phone: Comment on above: Patient Position: Sitting; Cuff Location : Left Arm; Cuff Size: Large 04-22-2013 08:48-0500 BSA (Body Surface Area) 2.06 m2 Deandra Wynnseven [facility] Work Phone: 04-22-2013 08:48-0500 Height 174.63 cm Deandra Wynnseven [facility] Work Phone: 04-22-2013 08:48-0500 Pulse (Heart Rate) 84 /min Deandra Membreno [facility] Medicine Work Phone: Comment on above: Pattern: Regular 04-22-2013 08:48-0500 Respiratory Rate 16 /min Deandra Wynnseven [facility] Work Phone: Comment on above: Pattern: Unlabored 03-20-2013 07:06-0500 BMI (Body Mass Index) 28.26 kg/m2 BETTINA Barreto [place] [facility] Work Phone: 03-20-2013 07:06-0500 Body Temperature 98.2 [degF] BETTINA Barreto [place] [facility] Work Phone: Comment on above: Method: Oral 03-20-2013 07:06-0500 Body weight 86.18 kg BETTINA Barreto [place] [facility] Work Phone: 03-20-2013 07:06-0500 BP Diastolic 80 mm[Hg] BETTINA Barreto [place] [facility] Work Phone: Comment on above: Patient Position: Sitting; Cuff Location : Left Arm; Cuff Size: Standard 03-20-2013 07:06-0500 BP Systolic 120 mm[Hg] BETTINA Barreto [place] [facility] Work Phone: Comment on above: Patient Position: Sitting; Cuff Location : Left Arm; Cuff Size: Standard 03-20-2013 07:06-0500 BSA (Body Surface Area) 2.02 m2 BETTINA Estevan ESTES [facility] Work Phone: 03-20-2013 07:06-0500 Height 174.63 cm BETTINA Estevan ESTES [facility] Work Phone: 03-20-2013 07:06-0500 Pulse (Heart Rate) 78 /min BETTINA Estevan [facility] Work Phone: Comment on above: Pattern: Regular 03-20-2013 07:06-0500 Respiratory Rate 18 /min BETTINA Barreto LPN [facility] Work Phone: Comment on above: Pattern: Unlabored 02-26-2013 13:22-0500 BMI (Body Mass Index) 28.26 kg/m2 [facility] Work Phone: 02-26-2013 13:22-0500 Body Temperature 98.1 [degF] [facility] Work Phone: Comment on above: Method: Oral 02-26-2013 13:22-0500 Body weight 86.18 kg BETTINA Barreto [employer] TECHN[employer] [facility] Work Phone: 02-26-2013 13:22-0500 BP Diastolic 74 mm[Hg] BETTINA Barreto [facility] Work Phone: Comment on above: Patient Position: Sitting; Cuff Location : Left Arm; Cuff Size: Standard 02-26-2013 13:22-0500 BP Systolic 118 mm[Hg] BETTINA Barreto [facility] Work Phone: Comment on above: Patient Position: Sitting; Cuff Location : Left Arm; Cuff Size: Standard 02-26-2013 13:22-0500 BSA (Body Surface Area) 2.02 m2 BETTINA Barreto LPN [facility] Work Phone: 02-26-2013 13:22-0500 Height 174.63 cm BETTINA Barreto [facility] Work Phone: 02-26-2013 13:22-0500 Pulse (Heart Rate) 70 /min BETTINA Barreto [facility] Work Phone: Comment on above: Pattern: Regular 02-26-2013 13:22-0500 Respiratory Rate 18 /min [facility] Work Phone: Comment on above: Pattern: Unlabored 09-03-2012 10:33-0400 BMI (Body Mass Index) 28.41 kg/m2 Deandra Jane [facility] Internal Medicine Work Phone: 09-03-2012 10:33-0400 Body Temperature 97.7 [degF] Deandra Membreno [facility] Work Phone: 09-03-2012 10:33-0400 Body weight 86.64 kg Deandra Membreno [facility] Work Phone: 09-03-2012 10:33-0400 BP Diastolic 78 mm[Hg] Deandra Membreno [facility] Work Phone: Comment on above: Patient Position: Sitting; Cuff Location : Left Arm; Cuff Size: Large 09-03-2012 10:33-0400 BP Systolic 104 mm[Hg] Deandra Membreno [facility] Work Phone: Comment on above: Patient Position: Sitting; Cuff Location : Left Arm; Cuff Size: Large 09-03-2012 10:33-0400 BSA (Body Surface Area) 2.02 m2 Deandra Membreno [facility] Work Phone: 09-03-2012 10:33-0400 Height 174.63 cm Deandra Membreno [facility] Work Phone: 09-03-2012 10:33-0400 Pulse (Heart Rate) 82 /min Deandra Membreno [facility] Work Phone: Comment on above: Pattern: Regular 09-03-2012 10:33-0400 Respiratory Rate 16 /min Deandra Santiagokatty [facility] Work Phone: Comment on above: Pattern: Unlabored 03-31-2012 14:52-0500 BMI (Body Mass Index) 28.41 kg/m2 Deandra Wynnseven [facility] Internal Medicine Work Phone: 03-31-2012 14:52-0500 Body Temperature 97 [degF] Deandra Membreno [facility] Internal Medicine Work Phone: 03-31-2012 14:52-0500 Body weight 86.64 kg Deandra Wynnseven [facility] Internal Medicine Work Phone: 03-31-2012 14:52-0500 BP Diastolic 62 mm[Hg] Deandra Membreno [facility] Internal Medicine Work Phone: Comment on above: Patient Position: Sitting; Cuff Location : Left Arm; Cuff Size: Large 03-31-2012 14:52-0500 BP Systolic 104 mm[Hg] Deandra Membreno [facility] Internal Medicine Work Phone: Comment on above: Patient Position: Sitting; Cuff Location : Left Arm; Cuff Size: Large 03-31-2012 14:52-0500 BSA (Body Surface Area) 2.02 m2 Deandra Santiagokatty [facility] Internal Medicine Work Phone: 03-31-2012 14:52-0500 Height 174.63 cm Deandra Wynnseven [facility] Internal Medicine Work Phone: 03-31-2012 14:52-0500 Pulse (Heart Rate) 88 /min [facility] Work Phone: Comment on above: Pattern: Regular 03-31-2012 14:52-0500 Respiratory Rate 16 /min Deandra Wynnseven [facility] Internal Medicine Work Phone: Comment on above: Pattern: Unlabored 01-30-2012 08:07-0500 BMI (Body Mass Index) 28.26 kg/m2 Deandra Santiagokatty [facility] Internal Medicine Work Phone: 01-30-2012 08:07-0500 Body Temperature 98.7 [degF] Deandra Temi [facility] Internal Medicine Work Phone: 01-30-2012 08:07-0500 Body weight 86.18 kg Deandra Temi [facility] Internal Medicine Work Phone: 01-30-2012 08:07-0500 BP Diastolic 70 mm[Hg] Deandra Temi [facility] Internal Medicine Work Phone: Comment on above: Patient Position: Sitting; Cuff Location : Left Arm; Cuff Size: Large 01-30-2012 08:07-0500 BP Systolic 100 mm[Hg] Deandra Temi [facility] Internal Medicine Work Phone: Comment on above: Patient Position: Sitting; Cuff Location : Left Arm; Cuff Size: Large 01-30-2012 08:07-0500 BSA (Body Surface Area) 2.02 m2 Deandra Membreno [facility] Internal Medicine Work Phone: 01-30-2012 08:07-0500 Height 174.63 cm Deandra Temi [facility] Internal Medicine Work Phone: 01-30-2012 08:07-0500 Pulse (Heart Rate) 96 /min Deandra Membreno [facility] Internal Medicine Work Phone: Comment on above: Pattern: Regular 01-30-2012 08:07-0500 Respiratory Rate 16 /min Deandra Temi [facility] Internal Medicine Work Phone: Comment on above: Pattern: Unlabored 09-19-2011 08:44-0400 BMI (Body Mass Index) 29.6 kg/m2 Deandra Temi [facility] Internal Medicine Work Phone: 09-19-2011 08:44-0400 Body Temperature 98.4 [degF] [facility] Work Phone: 09-19-2011 08:44-0400 Body weight 90.27 kg [facility] Work Phone: 09-19-2011 08:44-0400 BP Diastolic 88 mm[Hg] [facility] Work Phone: Comment on above: Patient Position: Sitting; Cuff Location : Left Arm; Cuff Size: Large 09-19-2011 08:44-0400 BP Systolic 122 mm[Hg] [facility] Work Phone: Comment on above: Patient Position: Sitting; Cuff Location : Left Arm; Cuff Size: Large 09-19-2011 08:44-0400 BSA (Body Surface Area) 2.06 m2 Deandra Temi [facility] Internal Medicine Work Phone: 09-19-2011 08:44-0400 Height 174.63 cm [facility] Internal [facility] Work Phone: 09-19-2011 08:44-0400 Pulse (Heart Rate) 92 /min Deandra Membreno [facility] Internal Medicine Work Phone: Comment on above: Pattern: Regular 09-19-2011 08:44-0400 Respiratory Rate 16 /min Deadnra Membreno [facility] Internal Medicine Work Phone: Comment on above: Pattern: Unlabored 12-21-2009 10:32-0400 Body Temperature 97.3 [degF] Deandra Membreno [facility] Internal Medicine Work Phone: 12-21-2009 10:32-0400 Body weight 86.64 kg Deandra Membreno [facility] Internal Medicine Work Phone: 12-21-2009 10:32-0400 BP Diastolic 86 mm[Hg] Deandra Membreno [facility] Internal Medicine Work Phone: Comment on above: Patient Position: Sitting; Cuff Location : Left Arm; Cuff Size: Standard 12-21-2009 10:32-0400 BP Systolic 134 mm[Hg] Deandra Membreno [facility] Internal Medicine Work Phone: Comment on above: Patient Position: Sitting; Cuff Location : Left Arm; Cuff Size: Standard 12-21-2009 10:32-0400 Pulse (Heart Rate) 92 /min Deandra Membreno [facility] Internal Medicine Work Phone: Comment on above: Pattern: Regular 12-21-2009 10:32-0400 Respiratory Rate 16 /min Deandra Membreno [facility] Internal Medicine Work Phone: Comment on above: Pattern: Unlabored 03-29-2009 15:14-0500 Body Temperature 97.4 [degF] Deandra Membreno [facility] Internal Medicine Work Phone: 03-29-2009 15:14-0500 BP Diastolic 82 mm[Hg] Deandra Membreno [facility] Internal Medicine Work Phone: Comment on above: Patient Position: Sitting; Cuff Location : Right Arm; Cuff Size: Standard 03-29-2009 15:14-0500 BP Systolic 140 mm[Hg] Deandra Memberno [facility] Internal Medicine Work Phone: Comment on above: Patient Position: Sitting; Cuff Location : Right Arm; Cuff Size: Standard 03-29-2009 15:14-0500 Pulse (Heart Rate) 100 /min Deandra Temi [facility] Internal Medicine Work Phone: Comment on above: Pattern: Regular 03-29-2009 15:14-0500 Respiratory Rate 16 /min Deandra Membreno [facility] Internal Medicine Work Phone: Comment on above: Pattern: Unlabored 02-22-2009 08:04-0500 BMI (Body Mass Index) 29.01 kg/m2 Deandra Temi [facility] Internal Medicine Work Phone: 02-22-2009 08:04-0500 Body Temperature 97.9 [degF] Deandra Membreno [facility] Internal Medicine Work Phone: Comment on above: Method: Undefined 02-22-2009 08:04-0500 Body weight 88.45 kg Deandra Membreno [facility] Internal Medicine Work Phone: 02-22-2009 08:04-0500 BP Diastolic 86 mm[Hg] Deandra Membreno [facility] Internal Medicine Work Phone: Comment on above: Patient Position: Sitting; Cuff Location : Left Arm; Cuff Size: Standard 02-22-2009 08:04-0500 BP Systolic 132 mm[Hg] Deandra Membreno [facility] Internal Medicine Work Phone: Comment on above: Patient Position: Sitting; Cuff Location : Left Arm; Cuff Size: Standard 02-22-2009 08:04-0500 BSA (Body Surface Area) 2.04 m2 Deandra Membreno [facility] Internal Medicine Work Phone: 02-22-2009 08:04-0500 Head Circumference 0 cm Roly Rahman [facility] Internal Medicine Work Phone: 02-22-2009 08:04-0500 Head Occipital-frontal circumference 0 cm Deandra Membreno [facility] Internal Medicine; [facility] Work Phone: 02-22-2009 08:04-0500 Height 174.63 cm Deandra Membreno [facility] Internal Medicine Work Phone: 02-22-2009 08:04-0500 Pulse (Heart Rate) 88 /min Deandra Membreno [facility] Medicine Work Phone: Comment on above: Pattern: Regular 02-22-2009 08:04-0500 Respiratory Rate 18 /min Deandra Membreno [facility] Internal Medicine Work Phone: Comment on above: Pattern: Undefined 10-26-2008 14:41-0400 BMI (Body Mass Index) 28.89 kg/m2 Keeleyjennifer Heck [facility] Internal Medicine Work Phone: 10-26-2008 14:41-0400 Body weight 86.18 kg [facility] Internal Medicine Work Phone: 10-26-2008 14:41-0400 BP Diastolic 76 mm[Hg] [facility] Internal Medicine Work Phone: Comment on above: Patient Position: Supine; Cuff Location: Left Arm; Cuff Size: Standard 10-26-2008 14:41-0400 BP Systolic 120 mm[Hg] [facility] Internal Medicine Work Phone: Comment on above: Patient Position: Supine; Cuff Location: Left Arm; Cuff Size: Standard 10-26-2008 14:41-0400 BSA (Body Surface Area) 2 m2 [facility] Internal Medicine Work Phone: 10-26-2008 14:41-0400 Head Circumference 0 cm Roly [facility] Internal Medicine Work Phone: 10-26-2008 14:41-0400 Head Occipital-frontal circumference 0 cm [facility] Internal Medicine; [facility] Internal Medicine Work Phone: 10-26-2008 14:41-0400 Height 172.72 cm [facility] Internal Medicine Work Phone: 10-26-2008 14:41-0400 Pulse (Heart Rate) 72 /min [facility] Internal Medicine Work Phone: Comment on above: Pattern: Regular 10-26-2008 14:41-0400 Respiratory Rate 16 /min [facility] Internal Medicine Work Phone: Comment on above: Pattern: Unlabored 08-10-2008 08:19-0400 BMI (Body Mass Index) 27.89 kg/m2 Deandra Temi [facility] Internal Medicine Work Phone: 08-10-2008 08:19-0400 Body Temperature 98.5 [degF] Deandra Temi [facility] Internal Medicine Work Phone: Comment on above: Method: Undefined 08-10-2008 08:19-0400 Body weight 87.54 kg Deandra Temi [facility] Internal Medicine Work Phone: 08-10-2008 08:19-0400 BP Diastolic 84 mm[Hg] Deandra Temi [facility] Internal Medicine Work Phone: Comment on above: Patient Position: Sitting; Cuff Location : Left Arm; Cuff Size: Large 08-10-2008 08:19-0400 BP Systolic 114 mm[Hg] Deandra Temi [facility] Internal Medicine Work Phone: Comment on above: Patient Position: Sitting; Cuff Location : Left Arm; Cuff Size: Large 08-10-2008 08:19-0400 BSA (Body Surface Area) 2.05 m2 Deandra Temi [facility] Internal Medicine Work Phone: 08-10-2008 08:19-0400 Head Circumference 0 cm Roly Rahman [facility] Internal Medicine Work Phone: 08-10-2008 08:19-0400 Head Occipital-frontal circumference 0 cm Deandra Membreno [facility] Internal Medicine; [facility] Work Phone: 08-10-2008 08:19-0400 Height 177.16 cm Deandra Membreno [facility] Internal Medicine Work Phone: 08-10-2008 08:19-0400 Pulse (Heart Rate) 92 /min Deandra Temi [facility] Internal Medicine Work Phone: Comment on above: Pattern: Regular 08-10-2008 08:19-0400 Respiratory Rate 16 /min Deandra Membreno [facility] Internal Medicine Work Phone: Comment on above: Pattern: Undefined 12-19-2008 08:52-0500 Body Temperature 97.4 [degF] Deandra Membreno [facility] Internal Medicine Work Phone: Comment on above: Method: Undefined 02-27-2008 08:52-0500 Body weight 84.82 kg Deandra Membreno [facility] Internal Medicine Work Phone: 02-27-2008 08:52-0500 BP Diastolic 76 mm[Hg] Deandra Wynndajakatty [facility] Internal Medicine Work Phone: Comment on above: Patient Position: Sitting; Cuff Location : Right Arm; Cuff Size: Large 02-27-2008 08:52-0500 BP Systolic 124 mm[Hg] Deandra Membreno [facility] Internal Medicine Work Phone: Comment on above: Patient Position: Sitting; Cuff Location : Right Arm; Cuff Size: Large 02-27-2008 08:52-0500 Head Circumference 0 cm Rolydasia Rahman [facility] Internal Medicine Work Phone: 02-27-2008 08:52-0500 Head Occipital-frontal circumference 0 cm Deandra Temi [facility] Internal Medicine; [facility] Work Phone: 02-27-2008 08:52-0500 Height 0 cm Deandra Wynnseven [facility] Internal Medicine Work Phone: 02-27-2008 08:52-0500 Pulse (Heart Rate) 80 /min Deandra Temi [facility] Internal Medicine Work Phone: Comment on above: Pattern: Regular 02-27-2008 08:52-0500 Respiratory Rate 16 /min Deandra Temi [facility] Internal Medicine Work Phone: Comment on above: Pattern: Undefined 09-17-2007 11:31-0400 BMI (Body Mass Index) 26.88 kg/m2 Deandra Temi [facility] Internal Medicine Work Phone: 09-17-2007 11:31-0400 Body Temperature 98.3 [degF] Deandra Temi [facility] Internal Medicine Work Phone: Comment on above: Method: Undefined 09-17-2007 11:31-0400 Body weight 82.56 kg Deandra Membreno [facility] Internal Medicine Work Phone: 09-17-2007 11:31-0400 BP Diastolic 80 mm[Hg] Deandra Membreno [facility] Internal Medicine Work Phone: Comment on above: Patient Position: Sitting; Cuff Location : Right Arm; Cuff Size: Standard 09-17-2007 11:31-0400 BP Systolic 122 mm[Hg] Deandra Membreno [facility] Internal Medicine Work Phone: Comment on above: Patient Position: Sitting; Cuff Location : Right Arm; Cuff Size: Standard 09-17-2007 11:31-0400 BSA (Body Surface Area) 1.98 m2 Deandra Membreno [facility] Internal Medicine Work Phone: 09-17-2007 11:31-0400 Head Circumference 0 cm Roly Rahman [facility] Internal Medicine Work Phone: 09-17-2007 11:31-0400 Head Occipital-frontal circumference 0 cm Deandra Membreno [facility] Internal Medicine; [facility] Work Phone: 09-17-2007 11:31-0400 Height 175.26 cm Deandra Membreno [facility] Internal Medicine Work Phone: 09-17-2007 11:31-0400 Pulse (Heart Rate) 72 /min Deandra Membreno [facility] Internal Medicine Work Phone: Comment on above: Pattern: Regular 09-17-2007 11:31-0400 Respiratory Rate 16 /min Deandra Membreno [facility] Internal Medicine Work Phone: Comment on above: Pattern: Undefined 11-15-2006 11:19-0400 BMI (Body Mass Index) 26.77 kg/m2 Deandra Membreno [facility] Internal Medicine Work Phone: 11-15-2006 11:19-0400 Body Temperature 97.7 [degF] Deandra Membreno [facility] Internal Medicine Work Phone: Comment on above: Method: Oral 11-15-2006 11:19-0400 Body weight 81.65 kg Deandra Membreno [facility] Internal Medicine Work Phone: 11-15-2006 11:19-0400 BP Diastolic 78 mm[Hg] Deandra Membreno [facility] Internal Medicine Work Phone: Comment on above: Patient Position: Sitting; Cuff Location : Left Arm; Cuff Size: Standard 11-15-2006 11:19-0400 BP Systolic 116 mm[Hg] Deandra Membreno [facility] Internal Medicine Work Phone: Comment on above: Patient Position: Sitting; Cuff Location : Left Arm; Cuff Size: Standard 11-15-2006 11:19-0400 BSA (Body Surface Area) 1.97 m2 Deandra Membreno [facility] Internal Medicine Work Phone: 11-15-2006 11:19-0400 Head Circumference 0 cm Roly Rahman [facility] Internal Medicine Work Phone: 11-15-2006 11:19-0400 Head Occipital-frontal circumference 0 cm Deandra Wynnseven [facility] Internal Medicine; [facility] Work Phone: 11-15-2006 11:19-0400 Height 174.63 cm Deandra Santiagokatty [facility] Internal Medicine Work Phone: 11-15-2006 11:19-0400 Pulse (Heart Rate) 92 /min Deandra Membreno [facility] Internal Medicine Work Phone: Comment on above: Pattern: Regular 11-15-2006 11:19-0400 Respiratory Rate 16 /min Deandra Santiagokatty [facility] Internal Medicine Work Phone: Comment on above: Pattern: Unlabored 03-20-2006 13:36-0500 Body weight 87.8 kg Chely [facility] Internal Medicine Work Phone: 03-20-2006 13:36-0500 BP Diastolic 76 mm[Hg] [facility] Internal Medicine Work Phone: Comment on above: Patient Position: Sitting; Cuff Location : Undefined; Cuff Size: Undefined 03-20-2006 13:36-0500 BP Systolic 120 mm[Hg] Chely [facility] Internal Medicine Work Phone: Comment on above: Patient Position: Sitting; Cuff Location : Undefined; Cuff Size: Undefined 03-20-2006 13:36-0500 Head Circumference 0 cm [facility] Internal Medicine Work Phone: 03-20-2006 13:36-0500 Head Occipital-frontal circumference 0 cm [facility] Work Phone: 03-20-2006 13:36-0500 Height 0 cm [facility] Internal Medicine Work Phone: 03-20-2006 13:36-0500 Pulse (Heart Rate) 70 /min [facility] Internal Medicine Work Phone: Comment on above: Pattern: Regular 03-20-2006 13:36-0500 Respiratory Rate 16 /min [facility] Internal Medicine Work Phone: Comment on above: Pattern: Undefined 02-08-2006 08:37-0500 Body Temperature 97.9 [degF] [facility] Work Phone: Comment on above: Method: Oral 02-08-2006 08:37-0500 Body [facility] 88.03 [facility] Work Phone: 02-08-2006 08:37-0500 BP Diastolic 60 mm[Hg] [facility] Internal Medicine Work Phone: Comment on above: Patient Position: Sitting; Cuff Location : Right Arm; Cuff Size: Standard 02-08-2006 08:37-0500 BP Systolic 120 mm[Hg] [facility] Internal Medicine Work Phone: Comment on above: Patient Position: Sitting; Cuff Location : Right Arm; Cuff Size: Standard 02-08-2006 08:37-0500 Head Circumference 0 cm [facility] Internal Medicine Work Phone: 02-08-2006 08:37-0500 Head Occipital-frontal circumference 0 cm Deandra Flseven [facility] Internal Medicine; [facility] Internal Medicine Work Phone: 02-08-2006 08:37-0500 Height 0 cm Deandra Membreno [facility] Work Phone: 02-08-2006 08:37-0500 Pulse (Heart Rate) 88 /min Deandra Membreno [facility] Internal Medicine Work Phone: Comment on above: Pattern: Regular 02-08-2006 08:37-0500 Respiratory Rate 16 /min Deandra Membreno [facility] Work Phone: Comment on above: Pattern: Unlabored Encounters Encounter Date Encounter Type Care Provider Facility Start: 08-24-2024 ambulatory Antonina Steve Facility :[facility] Start: 06-22-2024 End: 06-22-2024 ambulatory Antonina Wilson SYSTEM DEVELOPMENT MANAGER-C Work Phone: [facility] Work Phone: Start: 06-22-2024 End: 06-22-2024 Patient encounter procedure Antonina Wilson SYSTEM DEVELOPMENT MANAGER-C Work Phone: -[facility] [place] Work Phone: Start: 06-22-2024 End: 06-22-2024 ambulatory Antonina Steve Facility:[facility] Start: 10-16-2023 End: 10-16-2023 ambulatory Antonina Steve Facility:[facility] Start: 08-23-2023 End: 08-23-2023 ambulatory Antonina Steve Facility:[facility] Start: 08-29-2022 End: 08-29-2022 ambulatory [facility] Work Phone: Start: 08-29-2022 End: 08-29-2022 Patient encounter procedure [facility] Start: 08-15-2022 End: 08-15-2022 Office outpatient visit 15 minutes Antonina Wilson MELT SUPERVISOR Work Phone: [facility] Start: 08-15-2022 Review Antonina Wilson MELT SUPERVISOR Work Phone: [facility] Start: 05-28-2022 End: 05-28-2022 ambulatory [facility] Work Phone: Start: 05-28-2022 End: 05-28-2022 Patient encounter procedure [facility] Start: 03-07-2022 End: 03-07-2022 Annotation/Addendum Antonina Wilson CNP Work Phone: [facility] Start: 01-29-2022 ambulatory Tata Pablo Fast DO Compreh ensive Internal Med Start: 01-26-2022 End: 01-26-2022 ambulatory [facility] Work Phone: Start: 01-26-2022 End: 01-26-2022 Patient encounter procedure [facility] Start: 01-01-2022 End: 01-01-2022 Patient encounter procedure Jennifer [facility] Start: 11-14-2021 End: 11-21-2021 Office outpatient visit 25 minutes Jennifer [facility]ins [facility] Start: 07-19-2021 End: 07-19-2021 Patient encounter procedure [facility] Start: 04-25-2021 End: 04-25-2021 Patient encounter procedure [facility] Breast [facility] Start: 02-20-2021 End: 02-20-2021 Office outpatient visit 15 minutes Roly Rahman MD Work Phone: [facility] Start: 02-10-2021 End: 02-10-2021 Annotation/Addendum Roly Rahman MD Work Phone: [facility] Start: 07-25-2020 End: 07-25-2020 Office outpatient visit 15 minutes Roly Rahman MD Work Phone: [facility] Start: 04-11-2020 End: 04-11-2020 Office outpatient visit 5 minutes Roly [facility] Start: 04-01-2020 End: 04-01-2020 Office outpatient visit 10 minutes Roly [facility] Start: 02-01-2020 End: 02-01-2020 Office outpatient visit 25 minutes Roly [facility]ins [facility] Start: 01-15-2020 End: 01-15-2020 Annotation/Addendum Roly Martins Cdl Program Coordinator al Medicine Start: 08-05-2019 End: 08-05-2019 Office outpatient visit 25 minutes Roly Martins [facility] Start: 07-30-2019 End: 07-30-2019 Phone Encounter Roly Martins Cdl Program Coordinator al Medicine Start: 07-14-2019 End: 07-14-2019 Office outpatient visit 15 minutes Roly Martins [facility] Start: 03-20-2019 End: 03-20-2019 Office outpatient visit 15 minutes Roly Martins [facility] Start: 11-12-2018 End: 11-12-2018 Annotation/Addendum Roly Martins Cdl Program Coordinator al Medicine Start: 11-11-2018 End: 11-11-2018 Patient encounter procedure Roly Martins [facility] Start: 11-11-2018 End: 11-11-2018 Initial preventive medicine new patient 40-64yrs Roly Martins [facility] Start: 02-28-2016 End: 02-28-2016 Office outpatient visit 15 minutes Roly Martins [facility] Start: 01-05-2016 End: 01-05-2016 Phone Encounter Roly Martins Cdl Program Coordinator al Medicine Start: 01-02-2016 End: 01-02-2016 Phone Encounter Roly Martins Cdl Program Coordinator al Medicine Start: 06-28-2015 End: 06-28-2015 Phone Encounter Roly Martins Cdl Program Coordinator al Medicine Start: 06-24-2015 End: 06-24-2015 Patient encounter procedure Roly Rahman [facility] Start: 05-05-2014 End: 05-05-2014 Office outpatient visit 25 minutes Roly [facility] Start: 04-22-2013 End: 04-22-2013 Patient encounter procedure Roly Martins [facility] Start: 03-20-2013 End: 03-20-2013 Patient encounter procedure Roly Martins [facility] Start: 02-26-2013 End: 02-26-2013 Patient encounter procedure Roly Martins [facility] Start: 09-03-2012 End: 09-03-2012 Patient encounter procedure Roly Martins [facility] Start: 08-22-2012 End: 08-22-2012 Lab Order Roly Martins Cdl Program Coordinator al Medicine Start: 05-09-2012 End: 05-09-2012 Phone Encounter Roly Martins Cdl Program Coordinator al Medicine Start: 04-08-2012 End: 04-08-2012 Prescription Refill Roly Martins Cdl Program Coordinator al Medicine Start: 03-31-2012 End: 03-31-2012 Patient encounter procedure Rloy [facility] Start: 01-30-2012 End: 01-30-2012 Patient encounter procedure Roly Rahman [facility] Start: 09-19-2011 End: 09-19-2011 [facility] Start: 12-21-2009 End: 12-21-2009 [facility] Start: 12-19-2009 End: 12-19-2009 Phone [facility] Start: 03-29-2009 End: 03-29-2009 Patient encounter procedure Roly Rahman [facility] Start: 02-22-2009 End: 02-22-2009 Patient encounter procedure Roly Rahman [facility] Start: 10-26-2008 End: 10-26-2008 Office outpatient visit 25 [facility] Start: 08-10-2008 End: 08-10-2008 Patient encounter procedure Radha Carter [facility] Internal Medicine Start: 02-27-2008 End: 02-29-2008 Patient encounter procedure R[facility] Internal Medicine Start: 09-17-2007 End: 09-17-2007 Historical Summary Roly [facility] Cdl Program Coordinator al Medicine Start: 09-17-2007 End: 09-17-2007 Patient encounter procedure Jennifer Espino [facility] Internal Medicine Start: 09-17-2007 End: 09-17-2007 [facility] Start: 08-14-2007 End: 08-14-2007 Patient encounter procedure Jennifer Espino [facility] Internal Medicine Start: 08-14-2007 End: 08-14-2007 [facility] Start: 11-15-2006 End: 11-15-2006 [facility] Start: 04-21-2006 End: 04-21-2006 [facility] Start: 03-20-2006 End: 03-21-2006 [facility] Start: 02-08-2006 End: 02-08-2006 [facility] Start: 02-05-2006 End: 02-05-2006 Historical Summary Roly [facility] Cdl Program Coordinator al Medicine Procedures Date Procedure Procedure Detail Performing Clinician Start: 04-25-2021 Screening mammography Start: 04-25-2021 End: 04-25-2021 SCRN MAMM (CAD)W/ANTHONY BILAT Comments: See Note; NOTES: [facility] Imaging Services [address] [place] [address] SCRN MAMM (CAD)W/ANTHONY BILAT MR#: [id number] Acct: [id number] Name: JENNIFER THOMAS Rep #: [id number] : 1955 F 65 From: Aman hickey MD PCP: Jennifer Espino SYSTEM DEVELOPMENT MANAGER-C Status: [facility] CLI Study: SCRN MAMM (CAD)W/ANTHONY BILAT Date of Exam: 04/11 07/30 Exam# [id number] Ordering Dr: Jennifer Espino SYSTEM DEVELOPMENT MANAGER SYSTEM DEVELOPMENT MANAGER-C MAMMOGRAPHY - BILATERAL SCREENING REASON FOR EXAM: Female, 65 years old. Routine annual screening examination. PERTINENT HISTORY: Non-contributory. TECHNIQUE: Digital bilateral breast anthony (3D mammographic acquisition) in the CC and MLO projections. 2-D mediolateral oblique (MLO) and craniocaudad (CC) views of both breasts were obtained. CAD: Full Field Digital Mammography with Computer Added Detection was performed. COMPARISON: Comparison is made with prior examination of 04/22/2020 and 04/20/2019. FINDINGS: Breast Composition: There are scattered areas of fibroglandular density. There are no dominant masses or suspicious calcifications. Stable small benign-appearing bilateral axillary lymph nodes. No other significant abnormalities are identified. There has been no significant change since the prior study. BI/SCRN MAMM (CAD)W/ANTHONY BILAT IMPRESSION: Stable bilateral screening mammogram. Yearly follow-up mammogram recommended. (A) ASSESSMENT CATEGORY: BIRADS Category 2: Benign. A letter regarding these results will be sent to the patient by the facility within 30 days. Approximately 10% of breast cancers are not detected by mammography. A normal mammogram should not delay biopsy of a clinically suspicious abnormality. [id number] Electronically Signed: Aman Calvo MD at 13:10 EST , CC: ROB Rodriguez Srinivas Marble Cleaner: Signed Jennifer Espino Work Phone: Start: 03-31-2021 End: 04-10-2021 Urgent Care Visit Report Comments: See Note; NOTES: [facility] [address] [place] [address] [address] [place] [address] OFFICE VISIT Date of Service: 03/31/21 MR#: [id number] Acct: [id number] Name: JENNIFER THOMAS Rep #: [id number] : 1955 Provider: CHICHO Us Age/Sex: 65/F Location: [email or web address] Status: Signed Intake Vital Signs 03/31/21 08:36 Height 5 ft 8 in Weight: 172 lb BMI 26.1 BP 140/90 H Blood Pressure Location Lt brachial Position Sitting Respiration 16 Pulse 92 Pulse Source Monitor Temp 97.7 F L Temp Source Temporal Pulse Oximetry (%) 97 Oxygen Delivery Method room air Intake Visit Reasons: SINUS INFECTION Allergies No Known Allergies Allergy (Unverified 03/31/21 08:37) Medications NK 03/31/21 [History Confirmed 03/31/21] amoxicillin 875 mg-potassium clavulanate 125 mg tablet 1 tab PO Q12H 10 Days #20 tab 03/31/21 [Rx Confirmed 03/31/21] PFSH Surgical History H/O: hysterectomy Family History (Updated 03/31/21 @ 08:17 by Eli El RN) Other Heart disease Hypertension HPI HPI Details: JENNIFER THOMAS, is a 65 F who presents to the office today for complaint of sinus congestion/pressure and headache for the past 2 weeks. Patient denies cough, shortness of breath or difficulty breathing. No fever, chills, sweats. No nausea, vomiting, diarrhea. No other associated symptoms or alleviating/aggravating factors. ROS Const Constitutional: Positive for other (6 system ROS completed with pertinent findings in HPI otherwise normal.) Exam Const General: cooperative and healthy appearing HENMT Head: normal to inspection Ears: hearing grossly normal bilaterally, TM's normal bilaterally and EAC's normal Nose: nasal discharge purulent Face and sinus: sinus tenderness frontal and maxillary Mouth: oral mucosae normal Throat: abnormal tonsil bilaterally erythema and hypertrophy 1+ and postnasal drainage Resp Effort Inspection: normal respiratory effort Auscultation: Bilateral: Clear to Auscultation Cardio Palpation: normal PMI Rate: regular rate Rhythm: regular rhythm Neuro General: patient alert and CN's II-XI intact bilaterally Psych Appearance: grossly normal Mental Status: mental status grossly normal Results POC SARS AG POC SARS AG Negative Last Edit by Eli El RN on 03/31/21 08:36 Coding Level of Care Code Off vis,new,level 3 Diagnoses Acute sinusitis J01.90 Assessment and Plan Assessment and Plan (1) Acute sinusitis: Status: Acute Medications: New: amoxicillin-pot clavulanate 875-125 mg 1 TAB PO Q12H 10 days 20 tabs 0RF J01.90 Plan - CHICHO Wolfe: Augmentin as prescribed today. Encouraged to get plenty of rest, drink lots of clear liquids, and use Tylenol or Ibuprofen (unless contraindicated) for fever and comfort. Patient also educated on other symptomatic management techniques. To be seen in 7-10 days if no improvement; sooner if worsening of symptoms. Patient advised of potential red flags and when appropriate to report to the ED. Patient verbalized understanding and agreement with all the above. Plan Details Other Orders: Orders: POC Rapid SARS Antigen Today R09.81 03/31/21 0847 <Electronically signed by Wolfgang VALENTINO> Date Wolfgang VALENTINO Cosigner Signature: Date (if applicable) CC: Roly Rahman MD Work Phone: Start: 04-22-2020 End: 04-22-2020 SCRN MAMM (CAD)W/ANTHONY BILAT Comments: See Note; NOTES: [facility] Imaging Services [address] [place] [address] SCRN MAMM (CAD)W/ANTHONY BILAT MR#: [id number] Acct: [id number] Name: JENNIFER THOMAS Rep #: [id number] : 1955 F 64 From: Aman hickey MD PCP: Jennifer Espino SYSTEM DEVELOPMENT MANAGER-C Status: [facility] Study: SCRN MAMM (CAD)W/ANTHONY BILAT Date of Exam: 04/11 05/01 Exam# [id number] Ordering Dr: Jennifer Espino SYSTEM DEVELOPMENT MANAGER SYSTEM DEVELOPMENT MANAGER-C MAMMOGRAPHY - BILATERAL SCREENING REASON FOR EXAM: Female, 64 years old. Routine annual screening examination. PERTINENT HISTORY: Non-contributory. TECHNIQUE: Digital bilateral breast anthony (3D mammographic acquisition) in the CC and MLO projections. 2-D mediolateral oblique (MLO) and craniocaudad (CC) views of both breasts were obtained. CAD: Full Field Digital Mammography with Computer Added Detection was performed. COMPARISON: Comparison is made with prior study dated 04/20/2019 and 04/11/2018. FINDINGS: Breast Composition: There are scattered areas of fibroglandular density. There are no dominant masses or suspicious calcifications. Stable small benign-appearing bilateral axillary lymph nodes. No other significant abnormalities are identified. There has been no significant change since the prior study. BI/SCRN MAMM (CAD)W/ANTHONY BILAT IMPRESSION: Stable bilateral screening mammogram. Yearly follow-up mammogram recommended. (A) ASSESSMENT CATEGORY: BIRADS Category 2: Benign. A letter regarding these results will be sent to the patient by the facility within 30 days. Approximately 10% of breast cancers are not detected by mammography. A normal mammogram should not delay biopsy of a clinically suspicious abnormality. [id number] Electronically Signed: Aman Calvo MD at 11:05 EST , Service support , CC: ROB Espino Marble Cleaner: Signed Jennifer Espino Work Phone: Start: 02-24-2019 End: 02-25-2019 Dexa Bone Density Study Comments: See Note; NOTES: [facility] Imaging Services [address] [place] [address] Dexa Bone Density Study MR#: [id number] Acct: [id number] Name: JENNIFER THOMAS Rep #: [id number] : 1955 F 63 From: Aman Calvo MD PCP: ROB Palacio Status: REG CLI Study: Dexa Bone Density Study Date of Exam: 02/24/19 Exam# [id number] Ordering Dr: Jennifer Espino STUDY: DUAL ENERGY X-RAY ABSORPTIOMETRY / DXA REASON FOR EXAM: Female, 63 years old. The patient is postmenopausal. No loss of height. TECHNIQUE: Bone Mineral Density (BMD) measurements of lumbar spine and bilateral hips were obtained. COMPARISON: Comparison is made with prior study dated February 20, 2017. FINDINGS: Lumbar Spine (L1-L4): g/cm2 (1.019) / T-score (-1.3) / Z-score (0.2) Findings are suggestive of osteopenia with a low fracture risk. Left Femur Total: g/cm2 (0.960) / T-score (-0.4) / Z-score (0.8) Left Femoral Neck: g/cm2 (0.811) / T-score (-1.6) / Z-score (-0.2) Right Femur Total: g/cm2 (0.924) / T-score (-0.7) / Z-score (0.5) Right Femoral Neck: g/cm2 (0.860) / T-score (-1.3) / Z-score (0.2) The T-Scores on the most recent prior examination were: Lumbar Spine (L1-L4): There has been improvement of bone density since the previous examination. Left Femur Total: which represents a worsening of 0.5%. Right Femur Total: which represents a worsening of 3.8%. BD/Dexa Bone Density Study IMPRESSION: The patient is considered osteopenic as outlined below according to World Haris Organization (WHO) criteria with a moderate fracture risk. There has been worsening of bone density since the previous examination. Reference Information: The T-score is the number of standard deviations above or below the standard which is normal for young adults at their peak bone mineral density. The World Health Organization (WHO) interprets the T-scores as follows: Above -1 Normal bone density Between -1 and -2.5 Osteopenia Equal to / or below -2.5 Osteoporosis As a practical clinical guideline, osteopenia may be graded as follows: Mild -1 through -1.5 Moderate -1.6 through -2.0 Severe -2.1 through -2.4 The Z-score is the number of standard deviations above or below age-matched controls. A Z-score of less than -1.5 would be considered abnormal. References: 1. NIH Osteoporosis and Related Bone Diseases http://www.osteo.org 2. International Society for Clinical Densitometry http://www.iscd.org 3. National Osteoporosis Foundation http://www.nof.org Electronically Signed: Aman Calvo, at 12:44 EST , Service support , CC: ROB Espino Marble Cleaner: Signed Jennifer Espino Work Phone: Start: 02-07-2016 End: 02-08-2016 Bilat Scrn Digital AND CAD Comments: See Note; NOTES: [facility] Imaging Services [address] [place] [address] Conn[place]ana 4d Bilat Scrn Digital AND CAD MR#: [id number] Acct: [id number] Name: JENNIFER THOMAS Rep #: [id number] : 1955 F 60 From: Vishnu Spears MD PCP: Roly Rahman Status: REG CLI Study: Bilat Scrn Digital AND CAD Date of Exam: 02/07/16 Exam# [id number] Ordering Dr: Cheryle Godinez MD MAMMOGRAPHY - BILATERAL SCREENING REASON FOR EXAM: Female, 60 years old. Routine annual screening examination. PERTINENT HISTORY: Non-contributory. TECHNIQUE: Digital examination. Mediolateral oblique (MLO) and craniocaudad (CC) views of both breasts were obtained, along with 3-D tomosynthesis. CAD: CAD was performed on this study. COMPARISON: 01/18/2015 FINDINGS: Breast Density: Scattered fibroglandular densities. There are no dominant masses or suspicious calcifications. No other significant abnormalities are identified. There has been no significant change since the prior study. BI/Bilat Scrn Digital AND CAD IMPRESSION: Stable bilateral screening mammogram. Yearly follow-up mammogram recommended. (A) ASSESSMENT CATEGORY: BIRADS Category 2: Benign. A letter regarding these results will be sent to the patient by the facility within 30 days. BR2 Approximately 10% of breast cancers are not detected by mammography. A normal mammogram should not delay biopsy of a clinically suspicious abnormality. [id number] Electronically Signed: Carlos Spears MD at 7:52 EST Tel , Service support [phone], CC: Cheryle Godinez MD; Roly Rahman Marble Cleaner: Signed Roly Rahman Start: 01-18-2015 End: 01-18-2015 Bilat Scrn Digital AND CAD Comments: See Note; NOTES: [facility] Imaging Services [address] [place] [address] Verdana 4d Bilat Scrn Digital AND CAD MR#: [id number] Acct: [id number] Name: JENNIFER THOMAS Rep #: [id number] : 1955 F 59 From: Aman Calvo MD PCP: Ttaa Suero DO Status: [facility] CLI Study: Bilat Scrn Digital AND CAD Date of Exam: 01/18/15 Exam# [id number] Ordering Dr: Cheryle Godinez MD MAMMOGRAPHY - BILATERAL SCREENING REASON FOR EXAM: Female, 59 years old. Routine annual screening examination. PERTINENT HISTORY: Non-contributory. TECHNIQUE: Digital examination. Mediolateral oblique (MLO) and craniocaudad (CC) views of both breasts were obtained. CAD: CAD was performed on this study. COMPARISON: Comparison is made with prior study dated December 22, 2013 and October 13, 2012. FINDINGS: Breast Composition: There are scattered areas of fibroglandular density. There are no dominant masses or suspicious calcifications. No other significant abnormalities are identified. There has been no significant change since the prior study. IMPRESSION: Stable bilateral screening mammogram. Yearly follow-up recommended. (A) ASSESSMENT CATEGORY: BIRADS Category 1: Negative. A letter regarding these results will be sent to the patient by the facility within 30 days. Approximately 10% of breast cancers are not detected by mammography. A normal mammogram should not delay biopsy of a clinically suspicious abnormality. Electronically Signed: Aman Calvo MD at 8:37 EST Tel [phone], Service support [phone], CC: Cheryle Godinez MD; Tata Suero DO Marble Cleaner: Signed Roly Rahman Start: 05-13-2014 End: 05-17-2014 Dexa Bone Density Study (HP) Comments: See Note; NOTES: [facility] Imaging Services [address] [place] [address] Bone Density Report MR#: [id number] Acct: [id number] Name: JENNIFER THOMAS Rep #: [id number] : 1955 F 58 From: Aman Calvo MD PCP: Tata Suero DO Status: REG CLI Study: Dexa Bone Density Study (HP) Date of Exam: 05/13/14 Exam# [id number] Ordering Dr: Tata Suero DO STUDY: DUAL ENERGY X-RAY ABSORPTIOMETRY / DXA REASON FOR EXAM: Female, 58 years old. The patient is postmenopausal. TECHNIQUE: Bone Mineral Density (BMD) measurements of lumbar spine and bilateral hips were obtained. COMPARISON: Comparison is made with prior study dated February 20, 2012. FINDINGS: Lumbar Spine (L1-L4): g/cm2 (1.036) / T-score (-1.2) / Z-score (0.0) Findings are suggestive of osteopenia with a low fracture risk. Left Femur Total: g/cm2 (1.029) / T-score (0.2) / Z-score (1.1) Left Femoral Neck: g/cm2 (0.888) / T-score (-1.1) / Z-score (0.1) Right Femur Total: g/cm2 (0.998) / T-score (-0.1) / Z-score (0.8) Right Femoral Neck: g/cm2 (0.910) / T-score (-0.9) / Z-score (0.3) The T-Scores on the most recent prior examination were: Lumbar Spine (L1-L4): There has been improvement of bone density since the previous examination. Left Femur Total: which represents an improvement of 1.5%. Right Femur Total: which represents an improvement of 0.2%. IMPRESSION: The patient is considered osteopenic as outlined below according to World Haris Organization (WHO) criteria with a low fracture risk. There has been improvement of bone density since the previous examination. Reference Information: The T-score is the number of standard deviations above or below the standard which is normal for young adults at their peak bone mineral density. The World Health Organization (WHO) interprets the T-scores as follows: Above -1 Normal bone density Between -1 and -2.5 Osteopenia Equal to / or below -2.5 Osteoporosis As a practical clinical guideline, osteopenia may be graded as follows: Mild -1 through -1.5 Moderate -1.6 through -2.0 Severe -2.1 through -2.4 The Z-score is the number of standard deviations above or below age-matched controls. A Z-score of less than -1.5 would be considered abnormal. References: 1. NIH Osteoporosis and Related Bone Diseases http://www.osteo.org 2. International Society for Clinical Densitometry http://www.iscd.org 3. National Osteoporosis Foundation http://www.nof.org Electronically Signed: Aman Calvo MD at 14:43 EST Tel [phone], Service support [phone], CC: Tata Suero DO Marble Cleaner: Signed Tata Suero Work Phone: Start: 12-22-2013 End: 12-23-2013 Bilat Scrn Digital & CAD Comments: See Note; NOTES: [facility] Imaging Services [address] [place] [address] Breast Imaging Report MR#: [id number] Acct: [id number] Name: JENNIFER THOMAS Rep #: [id number] : 1955 F 58 From: Fernando Vaughn PCP: Tata Suero DO Status: REG CLI Exam# [id number] Ordering Dr: Cheryle Godinez MD MAMMOGRAPHY - BILATERAL SCREENING REASON FOR EXAM: Female, 58 years old. Routine annual screening examination. PERTINENT HISTORY: Current HRT use for 4 years. TECHNIQUE: Digital examination. Mediolateral oblique (MLO) and craniocaudad (CC) views of both breasts were obtained. CAD: CAD was performed on this study. COMPARISON: 10/13/2012 FINDINGS: Breast Composition: There are scattered areas of fibroglandular density. There are no dominant masses or suspicious calcifications. No other significant abnormalities are identified. There has been no significant change since the prior study. IMPRESSION: Stable bilateral screening mammogram. Yearly follow-up recommended. (A) ASSESSMENT CATEGORY: BIRADS Category 2: Benign finding(s). A letter regarding these results will be sent to the patient by the facility within 30 days. Approximately 10% of breast cancers are not detected by mammography. A normal mammogram should not delay biopsy of a clinically suspicious abnormality. Electronically Signed: Lian Vaughn MD at 20:52 EDT Tel , Service support [phone], CC: Cheryle Godinez MD; Tata Suero DO Marble Cleaner: Signed Roly Rahman Start: 03-25-2013 End: 03-25-2013 Sinus/Facial Bone Comments: See Note; NOTES: [facility] Imaging Services [address] [place] [address] CAT Scan Report MR#: [id number] Acct: [id number] Name: JENNIFER THOMAS Rep #: [id number] : 1955 F 57 From: Rocío Zamorano MD PCP: Status: REG CLI Study: Sinus/Facial Bone Date of Exam: 03/25/13 Exam# [id number] Ordering Dr: Kathi De Guzman MD STUDY: CT MAXILLOFACIAL SINUSES REASON FOR EXAM: Female, 57 years old. Chronic sinusitis, 3 rounds of antibiotics with right maxillary pain. RADIATION DOSAGE (If Supplied By Facility): CTDIvol = ( 42.71 ) mGy, DLP = ( 763.48 ) mGycm TECHNIQUE: The patient was scanned in a multi detector CT scanner. High resolution axial imaging was performed without the administration of intravenous contrast material. Sagittal and coronal images were reconstructed. COMPARISON: None. FINDINGS: FRONTAL SINUSES: Hypoplastic development, right more so than left, with otherwise normal aeration. ETHMOIDAL SINUSES: Normal aeration, with no significant mucosal inflammatory disease. MAXILLARY SINUSES: Thin mucosal hypertrophy along the right maxillary sinus floor compatible with mild chronic sinusitis. Normal aeration of the left maxillary sinus. SPHENOIDAL SINUSES: Normal aeration, without mucosal inflammatory disease. There is patency of the bilateral maxillary infundibuli with normal uncinate processes, ethmoid bullae, and hiatus semilunaris. Normal bilateral middle turbinates. Normal bilateral inferior turbinates. Slight deviation of the nasal septum to the right of midline with small rightward septal spur. There is patency of the bilateral nasal airways. Minor degenerative changes of the visualized upper cervical spine. Normal visualized orbital contents. Minimal calcific atheromatous plaque formation involving bilateral parasellar internal carotid arteries. IMPRESSION: Minimal chronic right maxillary sinusitis. Patent bilateral osteomeatal pathways. Slight deviation of the nasal septum to the right of midline with small rightward septal spur. Electronically Signed: Rocío Zamorano M.D. at 10:52 EST , Service support [phone], CC: Kathi De Guzman MD Marble Cleaner: Signed Kathi De Guzman Work Phone: Colonoscopy Mary Ann Slarb Comment on above: Feb 2016 Dr Bocanegra Colonoscopy Genet Cameron Comment on above: Feb 2016 Dr Bocanegra Colonoscopy Heath Mackay Comment on above: Feb 2016 Dr Bocanegra Colonoscopy Heath Mackay Comment on above: Feb 2016 Dr Bocanegra Colonoscopy Heath Mackay Comment on above: Feb 2016 Dr Bocanegra Colonoscopy Heath Mackay LP N Comment on above: Feb 2016 Dr Bocanegra Colonoscopy Stacey Long Eugene PN Comment on above: Feb 2016 Dr Bocanegra Colonoscopy Mary Ann Slarb LP N Comment on above: Feb 2016 Dr Bocanegra Colonoscopy Mary Ann Slarb [facility] N Comment on above: Feb 2016 Dr Bocanegra Plan of Treatment Date Care Activity Detail Author Start: 08-15-2022 Procedure Education Eprescribed prescriptions (G8553) [facility] Work Phone: Start: 08-15-2022 Provider Instructions for Treatment Follow up if no improvement or if symptoms worsen [facility] Work Phone: Start: 01-01-2022 Comprehensive metabolic panel METABOLIC PANEL, COMPREHENSIVE (65089) [facility] Work Phone: Comment on above: anytime in next 4 weeks Start: 11-14-2021 Procedure Education Eprescribed prescriptions (G8553) [facility]; [facility] Work Phone: Start: 11-14-2021 Provider Instructions for Treatment Follow up in 1 year or as needed [facility] Work Phone: Start: 11-14-2021 Lipid panel LIPID PANEL (11911) [facility]; [facility] Work Phone: Comment on above: fasting, get within next 3-4 months Start: 02-20-2021 Procedure Education Eprescribed prescriptions (G8553) [facility]; [facility] Work Phone: Start: 02-20-2021 Provider Instructions for Treatment Follow up in 1 year or as needed [facility]; [facility] Work Phone: Start: 07-25-2020 Procedure Education Eprescribed prescriptions (G8553) [facility]; [facility] Work Phone: Start: 07-25-2020 Provider Instructions for Treatment [facility] Work Phone: Start: 04-11-2020 Procedure Education Eprescribed prescriptions (G8553) [facility]; [facility] Work Phone: Start: 04-11-2020 Provider Instructions for Treatment Follow up if no improvement or if symptoms worsen [facility]; [facility] Work Phone: Start: 04-01-2020 Procedure Education Eprescribed prescriptions (G8553) [facility]; [facility] Work Phone: Start: 04-01-2020 Provider Instructions for Treatment [facility]; [facility] Work Phone: Start: 02-01-2020 Procedure Education Eprescribed prescriptions (G8553) [facility] Work Phone: Start: 02-01-2020 Provider Instructions for Treatment [facility] Work Phone: Start: 01-15-2020 TSH Qn TSH (THYROID STIMULATING HORMONE) (82722) [facility] Work Phone: Start: 01-15-2020 Blood count complete auto&auto difrntl wbc CBC, PLATELETS & AUT DIFF (58601) [facility] Work Phone: Start: 01-15-2020 Comprehensive metabolic panel METABOLIC PANEL, COMPREHENSIVE (75055) [facility] Work Phone: Start: 01-15-2020 Lipid panel LIPID PANEL (90747) [facility] Work Phone: Start: 08-05-2019 Procedure Education Eprescribed prescriptions (G8553) [facility] Work Phone: Start: 08-05-2019 Provider Instructions for Treatment [facility] Work Phone: Start: 08-05-2019 Comprehensive metabolic panel Metabolic Panel, Comprehensive (45100) [facility] Work Phone: Start: 08-05-2019 Blood count complete auto&auto difrntl wbc CBC, Platelets & Auto Diff (66743) [facility] Work Phone: Start: 07-14-2019 Procedure Education Eprescribed prescriptions (G8553) [facility] Work Phone: Start: 07-14-2019 Provider Instructions for Treatment [facility] Work Phone: Start: 05-08-2019 Lipoprotein blood melo numbers & subclasses NMR Profile (95684) [facility] Work Phone: Start: 03-20-2019 Procedure Education Eprescribed prescriptions (G8553) [facility] Work Phone: Start: 03-20-2019 Provider Instructions for Treatment Follow up if no improvement or if symptoms worsen [facility] Work Phone: Start: 11-11-2018 Procedure Education Eprescribed prescriptions (G8553) [facility] Work Phone: Start: 11-11-2018 Provider Instructions for Treatment Follow up in 6 months [facility] Work Phone: Start: 11-11-2018 Comprehensive metabolic panel Metabolic Panel, Comprehensive (82748) [facility] Work Phone: Start: 11-11-2018 Blood count complete automated CBC & PLATELETS (AUTO) (83621) [facility] Work Phone: Start: 11-11-2018 Lipid panel LIPID PANEL (27572) [facility] Work Phone: Start: 11-11-2018 Free T4 [Mass/Vol] T4, FREE (THYROXINE) (03755) [facility] Work Phone: Start: 11-11-2018 Free T3 [Mass/Vol] T3, FREE (TRIDOTHYRONINE) (01922) [facility] Work Phone: Start: 11-11-2018 TSH Qn TSH (THYROID STIMULATING HORMONE) (87225) [facility] Work Phone: Start: 02-28-2016 Patient Education Common Cold *: cold [facility] Work Phone: Start: 02-28-2016 Procedure Education Eprescribed prescriptions (G8553) [facility] Work Phone: Start: 02-28-2016 Provider Instructions for Treatment [facility] Work Phone: Start: 06-24-2015 Patient Education Allergies: allergies [facility] Work Phone: Start: 06-24-2015 Procedure Education Eprescribed prescriptions (G8553) [facility] Work Phone: Start: 06-24-2015 HbA1c (Bld) [Mass fraction] HGB A1C (60269) [facility] Work Phone: Start: 06-24-2015 Hemoglobin glycosylated a1c HGB A1C (69996) [facility]; [facility] Work Phone: Start: 06-24-2015 1 25 dihydroxy includes fractions if performed VITAMIN D, 1, 25-DIHYDROXY (61461) [facility] Work Phone: Start: 06-24-2015 Assay of triiodothyronine t3 free T3, FREE (TRIDOTHYRONINE) (60438) [facility]; [facility] Work Phone: Start: 06-24-2015 Free T3 [Mass/Vol] T3, FREE (TRIDOTHYRONINE) (12517) [facility] Work Phone: Start: 06-24-2015 Assay of free thyroxine T4, FREE (THYROXINE) (71365) [facility]; [facility] Work Phone: Start: 06-24-2015 Free T4 [Mass/Vol] T4, FREE (THYROXINE) (29973) [facility] Work Phone: Start: 06-24-2015 Assay of thyroid stimulating hormone tsh TSH (THYROID STIMULATING HORMONE) (60300) [facility]; [facility] Work Phone: Start: 06-24-2015 TSH Qn TSH (THYROID STIMULATING HORMONE) (49569) [facility] Work Phone: Start: 06-24-2015 Comprehensive metabolic panel METABOLIC PANEL, COMPREHENSIVE (05981) [facility] Work Phone: Start: 06-24-2015 Blood count complete auto&auto difrntl wbc CBC, PLATELETS & AUT DIFF (18848) [facility] Work Phone: Start: 06-24-2015 Lipid panel LIPID PANEL (39850) [facility] Work Phone: Start: 05-05-2014 Procedure Education Eprescribed prescriptions (G8553) [facility] Work Phone: Start: 04-22-2013 Blood count manual cell count each CBC WITH MANUAL DIFF (77558) [facility] Work Phone: Start: 04-22-2013 Urnls dip stick/tablet reagent auto microscopy URINALYSIS, W/ MICRO (46540) [facility] Work Phone: Start: 04-22-2013 25 hydroxy includes fractions if performed Vitamin D Hydroxy (00614) [facility] Work Phone: Start: 04-22-2013 Lipid panel LIPID PANEL (91931) [facility] Work Phone: Start: 04-22-2013 Comprehensive metabolic panel METABOLIC PANEL, COMPREHENSIVE (72739) [facility] Work Phone: Start: 03-20-2013 Urnls dip stick/tablet reagent auto microscopy URINALYSIS, W/ MICRO (11514) [facility] Work Phone: Start: 03-20-2013 Comprehensive metabolic panel METABOLIC PANEL, COMPREHENSIVE (84158) [facility] Work Phone: Start: 03-20-2013 Lipid panel LIPID PANEL (39676) [facility] Work Phone: Start: 03-20-2013 Blood count manual cell count each CBC WITH MANUAL DIFF (98063) [facility] Work Phone: Start: 03-20-2013 Assay of thyroid stimulating hormone tsh TSH (72041) [facility]; [facility] Work Phone: Start: 03-20-2013 TSH Qn TSH (10734) [facility] Work Phone: Start: 02-26-2013 Provider Instructions for Treatment [facility] Work Phone: Start: 09-03-2012 Patient Education High Cholesterol (Hypercholesterolemia) *: cholesterol [facility] Work Phone: Start: 09-03-2012 Provider Instructions for Treatment Diet, Exercise, and Wt loss [facility] Work Phone: Start: 09-03-2012 Comprehensive metabolic panel METABOLIC PANEL, COMPREHENSIVE (22048) [facility] Work Phone: Start: 09-03-2012 Lipid panel LIPID PANEL (84399) [facility] Work Phone: Start: 08-22-2012 25 hydroxy includes fractions if performed CALCIFIDIOL (42740) VIT D 25 [facility] Work Phone: Start: 08-22-2012 Urinalysis qual/semiquant except immunoassays URINALYSIS (40756) [facility] Work Phone: Start: 08-22-2012 Blood count manual cell count each CBC with manual diff (96035) [facility] Work Phone: Start: 08-22-2012 Assay of thyroid stimulating hormone tsh TSH (54894) [facility]; [facility] Work Phone: Start: 08-22-2012 TSH Qn TSH (60625) [facility] Work Phone: Start: 08-22-2012 Comprehensive metabolic panel Metabolic Panel, Comprehensive (68722) [facility] Work Phone: Start: 08-22-2012 Lipid panel Lipid Panel (54552) [facility] Work Phone: Start: 03-31-2012 Patient Education Osteoporosis in Women *: bone loss [facility] Work Phone: Start: 03-31-2012 Provider Instructions for Treatment *Bisphosphonate Education [facility] Work Phone: Start: 01-30-2012 Patient Education High Blood Pressure (Essential Hypertension) *: blood pressure [facility] Work Phone: Start: 01-30-2012 Lipid panel LIPID PANEL (69367) [facility] Work Phone: Start: 01-30-2012 Urnls dip stick/tablet reagent auto microscopy URINALYSIS, W/ MICRO (56737) [facility] Work Phone: Start: 01-30-2012 Blood count manual cell count each CBC WITH MANUAL DIFF (22576) [facility] Work Phone: Start: 01-30-2012 Comprehensive metabolic panel METABOLIC PANEL, COMPREHENSIVE (45267) [facility] Work Phone: Start: 01-30-2012 Assay of thyroid stimulating hormone tsh TSH (00216) [facility]; [facility] Work Phone: Start: 01-30-2012 TSH Qn TSH (01484) [facility] Work Phone: Start: 01-30-2012 25 hydroxy includes fractions if performed Vitamin D Hydroxy (21191) [facility] Work Phone: Start: 09-19-2011 Patient Education High Blood Pressure (Essential Hypertension) *: high blood pressure [facility] Work Phone: Start: 09-19-2011 Blood count manual cell count each CBC WITH MANUAL DIFF (63491) [facility] Work Phone: Start: 09-19-2011 Assay of thyroid stimulating hormone tsh TSH (46219) [facility]; [facility] Work Phone: Start: 09-19-2011 TSH Qn TSH (60129) [facility] Work Phone: Start: 09-19-2011 Assay of free thyroxine T4, FREE (THYROXINE) (63314) [facility]; [facility] Work Phone: Start: 09-19-2011 Free T4 [Mass/Vol] T4, FREE (THYROXINE) (64877) [facility] Work Phone: Start: 09-19-2011 Assay of triiodothyronine t3 free T3, FREE (TRIDOTHYRONINE) (75448) [facility]; [facility] Work Phone: Start: 09-19-2011 Free T3 [Mass/Vol] T3, FREE (TRIDOTHYRONINE) (05598) [facility] Work Phone: Start: 09-19-2011 25 hydroxy includes fractions if performed Vitamin D Hydroxy (02173) [facility] Work Phone: Start: 09-19-2011 Comprehensive metabolic panel METABOLIC PANEL, COMPREHENSIVE (01515) [facility] Work Phone: Start: 09-19-2011 Lipid panel LIPID PANEL (21752) [facility] Work Phone: Start: 12-21-2009 Microsomal antibodies each Anti-TPO Antibody (33477) [facility] Work Phone: Start: 12-21-2009 Assay of free thyroxine T4, FREE (THYROXINE) (68933) [facility]; [facility] Work Phone: Start: 12-21-2009 Free T4 [Mass/Vol] T4, FREE (THYROXINE) (85784) [facility] Work Phone: Start: 12-21-2009 Assay of thyroid stimulating hormone tsh TSH (73078) [facility]; [facility] Work Phone: Start: 12-21-2009 TSH Qn TSH (06733) [facility] Work Phone: Start: 12-21-2009 Assay of triiodothyronine t3 free T3, FREE (TRIDOTHYRONINE) (88774) [facility]; [facility] Work Phone: Start: 12-21-2009 Free T3 [Mass/Vol] T3, FREE (TRIDOTHYRONINE) (35848) [facility] Work Phone: Start: 12-19-2009 1 25 dihydroxy includes fractions if performed VITAMIN D, 1, 25-DIHYDROXY (73974) [facility] Work Phone: Comment on above: vitamin d oh Start: 12-19-2009 Assay of thyroid stimulating hormone tsh TSH (30275) [facility]; [facility] Work Phone: Start: 12-19-2009 TSH Qn TSH (53153) [facility] Work Phone: Start: 12-19-2009 Blood count manual cell count each CBC with manual diff (99757) [facility] Work Phone: Start: 12-19-2009 Comprehensive metabolic panel Metabolic Panel, [facility] (53998) [facility] Work Phone: Start: 12-19-2009 Lipid panel Lipid Panel (21381) [facility] Work Phone: Start: 03-29-2009 Provider Instructions for Treatment *Antibiotic Usage Education - Female [facility] Work Phone: Start: 02-22-2009 Lipid panel LIPID PANEL (32379) [facility] Work Phone: Start: 02-22-2009 Comprehensive metabolic panel METABOLIC PANEL, COMPREHENSIVE (17323) [facility] Work Phone: Start: 02-22-2009 Blood count manual cell count each CBC WITH MANUAL DIFF (83096) [facility] Work Phone: Start: 08-10-2008 Blood count manual cell count each CBC WITH MANUAL DIFF (01487) [facility] Work Phone: Start: 08-10-2008 25 hydroxy includes fractions if performed Vitamin D Hydroxy (63855) [facility] Work Phone: Start: 08-10-2008 Hepatic function panel HEPATIC FUNCTION PANEL (18897) [facility] Work Phone: Start: 08-10-2008 Lipid panel LIPID PANEL (99795) [facility] Work Phone: Start: 02-27-2008 Provider Instructions for Treatment Bisphosphonate Education [facility] Work Phone: Start: 02-27-2008 Antinuclear antibodies essence ESSENCE (ANTINUCLEAR ANTIBODY) (61883) [facility]; [facility] Work Phone: Start: 02-27-2008 Assay of thyroid stimulating hormone tsh TSH (88804) [facility]; [facility] Work Phone: Start: 02-27-2008 Blood count manual cell count each CBC WITH MANUAL DIFF (60500) [facility] Work Phone: Start: 02-27-2008 C-reactive protein C-REACTIVE PROTEIN (88358) [facility]; [facility] Work Phone: Start: 02-27-2008 Comprehensive metabolic panel METABOLIC PANEL, COMPREHENSIVE (33794) [facility] Work Phone: Start: 02-27-2008 CRP [Mass/Vol] C-REACTIVE PROTEIN (93260) [facility] Work Phone: Start: 02-27-2008 Nuclear Ab IF (S) [Titer] ESSENCE (ANTINUCLEAR ANTIBODY) (60813) [facility] Work Phone: Start: 02-27-2008 Rheumatoid factor quantitative RHEUMATOID FACTOR-QUANT (41374) [facility] Work Phone: Start: 02-27-2008 Sedimentation rate rbc non-automated SED RATE ERYTHROCYTE (10208) [facility] Work Phone: Start: 02-27-2008 TSH Qn TSH (01718) [facility] Work Phone: Start: 09-17-2007 Blood occult fecal hgb deter ia qual feces 1-3 FECAL OCCULT HGB ASSAY- tubes sent home (21404) [facility] Work Phone: Start: 09-17-2007 Blood occult peroxidase actv qual feces 1 deter OCCULT BLOOD FECES SCREEN- card done in office (16252) [facility] Work Phone: Start: 09-17-2007 Cytp cerv/vag auto thin layer prep mnl screen Thin prep Pap (48438) [facility] Work Phone: Start: 09-17-2007 Provider Instructions for Treatment [facility] Work Phone: Start: 11-15-2006 Provider Instructions for Treatment [facility] Work Phone: Start: 11-15-2006 Hepatic function panel HEPATIC FUNCTION PANEL (82989) [facility] Work Phone: Start: 11-15-2006 Lipid panel LIPID PANEL (16280) [facility] Work Phone: Start: 03-21-2006 Provider Instructions for Treatment FOLLOW UP IN 4 MONTHS [facility] Work Phone: Start: 03-21-2006 Comprehensive metabolic panel METABOLIC PANEL, COMPREHENSIVE (40616) [facility] Work Phone: Start: 03-21-2006 Lipid panel LIPID PANEL (06939) [facility] Work Phone: Start: 03-21-2006 Hepatic function panel HEPATIC FUNCTION PANEL (61603) [facility] Work Phone: Start: 02-08-2006 Provider Instructions for Treatment [facility] Work Phone: Start: 02-08-2006 Cytp cerv/vag auto thin layer prep mnl screen Thin prep Pap (60527) [facility] Work Phone: [facility] Work Phone: [facility] Work Phone: [facility] Work Phone: [facility] Work Phone: [facility] Work Phone: [facility] Work Phone: [facility] Work Phone: [facility] Work Phone[facility] Work Phone[facility] Work Phone: [facility] Work Phone: [facility] Work Phone: [facility] Work Phone: [facility] Work Phone: [facility] Work Phone: [facility] Work Phone: [facility] Work Phone: [facility] Work Phone: [facility] Work Phone: [facility] Work Phone: [facility] Work Phone: [facility]; [facility] Work Phone: Immunizations Immunization Date Immunization Notes Care Provider [facility] 02-22-2009 tetanus toxoid, redu susan diphtheria toxoid, and acellular pertussis vaccine, adsorbed Roly Rahman [facility] Work Phone: Comment on above: Lot #[id number] 04/27/2010Site-left deltoidDose0.5mlgiven by Gino Fernandez LPN Payers Date Payer Category Payer Self-pay [id number] 2021 Private Health Insurance [id number] 2020 Unknown [id number] 2016 [id number] 2006 [id number] 2001 Unknown [id number] 1955 Unknown [id number] Medicare [id number] Unknown Unknown [id number] Unknown [id number] Unknown [id number] [id number] [id number] Unknown [id number] [id number] [id number] Unknown [id number] [id number] [id number] Unknown [id number] [id number] [id number] Social History Date Type Detail Facility Caffeine Use Caffeine Use [facility] Work Phone: Comment on above: 2-3 QD Tobacco Use: Tobacco Use: [facility] Work Phone: Comment on above: Remotely quit tobacc o use Living Situation: Living Situation: [facility] Work Phone: Living Situation: Living Situation: [facility]; [facility] Work Phone: Tobacco Use: Tobacco Use: [facility]; [facility] Work Phone: Comment on above: Remotely quit tobacc o use Start: 1955 Sex Assigned At Female W [facility] Tobacco smoking status NHIS Unknown if ever smoked [facility] Work Phone: Start: 06-25-2024 Sex Female (finding) [facility] Functional Status Date Assessment Result Facility 07-30-2019 LP-IR Score LP-IR Score <25 [facility] Work Phone: Comment on above: INSULIN RESISTANCE M YANIRA <--Insulin Sensitive Insulin Resistant--> Percentile in Reference PopulationInsulin Resistance ScoreLP-IR Score Low 25th 50th 75th High <27 27 45 63 >63LP-IR Score is inaccurate if patient is non-fasting. .The LP-IR score is a laboratory developed index that has beenassociated with insulin resistance and diabetes risk and should beused as one component of a physician's clinical assessment. Test(s) 211699-ZRS-B ; 553110-EQN-H; 361763-MOT-F; 487949-Kgdsdaywvnahb; 901967-Himagpsqvec, Total; 701428-TJA-E (Total);330009-Yzcxs LDL-P; 155198-YEZ Size; 745013-ZM-XC Scorewas developed and its performance characteristics determinedby [employer]. It has not been cleared or approved by the Foodand Drug Administration.PATIENT WAS FASTINGPERFORMED BY: [address] [id number] Clinical Notes Note Date & Type Note Facility Evaluation note No assessment information availa ble [facility] Work Phone: Instructions Name Patient Instructions Indication:Nonsmoker Start: Instruction Type:Provider Instructions for Treatment How to Access Health Information Online using Patient Portal and 3rd [employer] Apps Indication:Nonsmoker Start: Instruction Type:Patient Education Patient Instructions Indication:Nonsmoker Start:11-Apr-2020 Instruction Type:Provider Instructions for Treatment How to Access Health Information Online using Patient Portal and 3rd [employer] Apps Indication:Nonsmoker Start:11-Apr-2020 Instruction Type:Patient Education Patient Instructions Indication:Urinary frequency Start: Instruction Type:Provider Instructions for Treatment How to Access Health Information Online using Patient Portal and 3rd [employer] Apps Indication:Urinary frequency Start: Instruction Type:Patient Education How to access health information online Indication:Nonsmoker Start: 0 Instruction Type:Patient Education How to access health information online - Detail Indication:Nonsmoker Start: 0 Instruction Type:Patient Education Patient Instructions Indication:Encounter for screening mammogram for breast cancer (Renamed from Encounter for screening mammogram for malignant neoplasm of breast) Start: 0 Instruction Type:Provider Instructions for Treatment How to access health information online Indication:Nonsmoker Start: 0 Instruction Type:Patient Education How to access health information online - Detail Indication:Nonsmoker Start: 0 Instruction Type:Patient Education Patient Instructions Indication:BMI 27.0-27.9,adult Start: 0 Instruction Type:Provider Instructions for Treatment How to access health information online Indication:BMI 28.0-28.9,adult Start:14-Jul-2019 Instruction Type:Patient Education How to access health information online - Detail Indication:BMI 28.0-28.9,adult Start:14-Jul-2019 Instruction Type:Patient Education Patient Instructions Indication:BMI 28.0-28.9,adult Start:14-Jul-2019 Instruction Type:Provider Instructions for Treatment How to access health information online Indication:BMI 27.0-27.9,adult Start: 0 Instruction Type:Patient Education How to access health information online - Detail Indication:BMI 27.0-27.9,adult Start: 0 Instruction Type:Patient Education Patient Instructions Indication:BMI 27.0-27.9,adult Start: 0 Instruction Type:Provider Instructions for Treatment How to access health information online Indication:Nonsmoker Start:11-Nov-2018 Instruction Type:Patient Education How to access health information online - Detail Indication:Nonsmoker Start:11-Nov-2018 Instruction Type:Patient Education Patient Instructions Indication:Nonsmoker Start:11-Nov-2018 Instruction Type:Provider Instructions for Treatment How to access health information online Indication:Cough Start: 6 Instruction Type:Patient Education How to access health information online - Detail Indication:Cough Start: 6 Instruction Type:Patient Education Patient Instructions Indication:Cough Start: 6 Instruction Type:Provider Instructions for Treatment How to access health information online Indication:Allergic rhinitis Start: 6 Instruction Type:Patient Education How to access health information online - Detail Indication:Allergic rhinitis Start: 6 Instruction Type:Patient Education Patient Instructions Indication:Allergic rhinitis Start: 6 Instruction Type:Provider Instructions for Treatment Patient Instructions Indication:Osteopenia Start: 5 Instruction Type:Provider Instructions for Treatment Patient Instructions Indication:Benign essential hypertension Start: 4 Instruction Type:Provider Instructions for Treatment Patient Instructions Indication:Benign essential hypertension Start: 3 Instruction Type:Provider Instructions for Treatment Patient Instructions Indication:Osteopenia Start: 3 Instruction Type:Provider Instructions for Treatment Patient Instructions Indication:Benign essential hypertension Start: 2 Instruction Type:Provider Instructions for Treatment [facility]; [facility] Work Phone: Instructions* Name Dates Details Patient Instructions Indication:BMI 27.0-27.9,adult Start:20-Feb-2021 Instruction Type:Provider Instructions for Treatment How to Access Health Informa tion Online using Patient Portal and [employer] Apps Indication:BMI 27.0-27.9,adult Start:20-Feb-2021 Instruction Type:Patient Education Patient Instructions Indication:Nonsmoker Start:25-Jul-2020 Instruction Type:Provider Instructions for Treatment How to Access Health Informa tion Online using Patient Portal and [employer]rd [employer] Apps Indication:Nonsmoker Start:25-Jul-2020 Instruction Type:Patient Education Patient Instructions Indication:Nonsmoker Start:11-Apr-2020 Instruction Type:Provider Instructions for Treatment How to Access Health Informa tion Online using Patient Portal and [employer] Apps Indication:Nonsmoker Start:11-Apr-2020 Instruction Type:Patient Education Patient Instructions Indication:Urinary frequency Start:01-Apr-2020 Instruction Type:Provider Instructions for Treatment How to Access Health Informa tion Online using Patient Portal and [employer]rd [employer] Apps Indication:Urinary frequency Start:01-Apr-2020 Instruction Type:Patient Education How to access health informa tion online Indication:Nonsmoker Start:01-Feb-2020 Instruction Type:Patient Education How to access health informa tion online - Detail Indication:Nonsmoker Start:01-Feb-2020 Instruction Type:Patient Education Patient Instructions Indication:Encounter for screening mammogram for breast cancer (Renamed from Encounter for screening mammogram for malignant neoplasm of breast) Start:01-Feb-2020 Instruction Type:Provider Instructions for Treatment How to access health informa tion online Indication:Nonsmoker Start:05-Aug-2019 Instruction Type:Patient Education How to access health informa tion online - Detail Indication:Nonsmoker Start:05-Aug-2019 Instruction Type:Patient Education Patient Instructions Indication:BMI 27.0-27.9,adult Start:05-Aug-2019 Instruction Type:Provider Instructions for Treatment How to access health informa tion online Indication:BMI 28.0-28.9,adult Start:14-Jul-2019 Instruction Type:Patient Education How to access health informa tion online - Detail Indication:BMI 28.0-28.9,adult Start:14-Jul-2019 Instruction Type:Patient Education Patient Instructions Indication:BMI 28.0-28.9,adult Start:14-Jul-2019 Instruction Type:Provider Instructions for Treatment How to access health informa tion online Indication:BMI 27.0-27.9,adult Start:20-Mar-2019 Instruction Type:Patient Education How to access health informa tion online - Detail Indication:BMI 27.0-27.9,adult Start:20-Mar-2019 Instruction Type:Patient Education Patient Instructions Indication:BMI 27.0-27.9,adult Start:20-Mar-2019 Instruction Type:Provider Instructions for Treatment How to access health informa tion online Indication:Nonsmoker Start:11-Nov-2018 Instruction Type:Patient Education How to access health informa tion online - Detail Indication:Nonsmoker Start:11-Nov-2018 Instruction Type:Patient Education Patient Instructions Indication:Nonsmoker Start:11-Nov-2018 Instruction Type:Provider Instructions for Treatment How to access health informa tion online Indication:Cough Start:28-Feb-2016 Instruction Type:Patient Education How to access health informa tion online - Detail Indication:Cough Start:28-Feb-2016 Instruction Type:Patient Education Patient Instructions Indication:Cough Start:28-Feb-2016 Instruction Type:Provider Instructions for Treatment How to access health informa tion online Indication:Allergic rhinitis Start:24-Jun-2015 Instruction Type:Patient Education How to access health informa tion online - Detail Indication:Allergic rhinitis Start:24-Jun-2015 Instruction Type:Patient Education Patient Instructions Indication:Allergic rhinitis Start:24-Jun-2015 Instruction Type:Provider Instructions for Treatment Patient Instructions Indication:Osteopenia Start:05-May-2014 Instruction Type:Provider Instructions for Treatment Patient Instructions Indication:Benign essential hypertension Start:22-Apr-2013 Instruction Type:Provider Instructions for Treatment Patient Instructions Indication:Benign essential hypertension Start:03-Sep-2012 Instruction Type:Provider Instructions for Treatment Patient Instructions Indication:Osteopenia Start:31-Mar-2012 Instruction Type:Provider Instructions for Treatment Patient Instructions Indication:Benign essential hypertension Start:30-Jan-2012 Instruction Type:Provider Instructions for Treatment [facility] Work Phone: Instructions* Name Dates Details How to Access Health Informa tion Online using Patient Portal and [employer] Apps Indication:Nonsmoker Start:14-Nov-2021 Instruction Type:Patient Education Patient Instructions Indication:Nonsmoker Start:14-Nov-2021 Instruction Type:Provider Instructions for Treatment Patient Instructions Indication:BMI 27.0-27.9,adult Start:20-Feb-2021 Instruction Type:Provider Instructions for Treatment How to Access Health Informa tion Online using Patient Portal and [employer] Apps Indication:BMI 27.0-27.9,adult Start:20-Feb-2021 Instruction Type:Patient Education Patient Instructions Indication:Nonsmoker Start:25-Jul-2020 Instruction Type:Provider Instructions for Treatment How to Access Health Informa tion Online using Patient Portal and [employer] Apps Indication:Nonsmoker Start:25-Jul-2020 Instruction Type:Patient Education Patient Instructions Indication:Nonsmoker Start:11-Apr-2020 Instruction Type:Provider Instructions for Treatment How to Access Health Informa tion Online using Patient Portal and [employer] Apps Indication:Nonsmoker Start:11-Apr-2020 Instruction Type:Patient Education Patient Instructions Indication:Urinary frequency Start:01-Apr-2020 Instruction Type:Provider Instructions for Treatment How to Access Health Informa tion Online using Patient Portal and [employer] Apps Indication:Urinary frequency Start:01-Apr-2020 Instruction Type:Patient Education How to access health informa tion online Indication:Nonsmoker Start:01-Feb-2020 Instruction Type:Patient Education How to access health informa tion online - Detail Indication:Nonsmoker Start:01-Feb-2020 Instruction Type:Patient Education Patient Instructions Indication:Encounter for screening mammogram for breast cancer (Renamed from Encounter for screening mammogram for malignant neoplasm of breast) Start:01-Feb-2020 Instruction Type:Provider Instructions for Treatment How to access health informa tion online Indication:Nonsmoker Start:05-Aug-2019 Instruction Type:Patient Education How to access health informa tion online - Detail Indication:Nonsmoker Start:05-Aug-2019 Instruction Type:Patient Education Patient Instructions Indication:BMI 27.0-27.9,adult Start:05-Aug-2019 Instruction Type:Provider Instructions for Treatment How to access health informa tion online Indication:BMI 28.0-28.9,adult Start:14-Jul-2019 Instruction Type:Patient Education How to access health informa tion online - Detail Indication:BMI 28.0-28.9,adult Start:14-Jul-2019 Instruction Type:Patient Education Patient Instructions Indication:BMI 28.0-28.9,adult Start:14-Jul-2019 Instruction Type:Provider Instructions for Treatment How to access health informa tion online Indication:BMI 27.0-27.9,adult Start:20-Mar-2019 Instruction Type:Patient Education How to access health informa tion online - Detail Indication:BMI 27.0-27.9,adult Start:20-Mar-2019 Instruction Type:Patient Education Patient Instructions Indication:BMI 27.0-27.9,adult Start:20-Mar-2019 Instruction Type:Provider Instructions for Treatment How to access health informa tion online Indication:Nonsmoker Start:11-Nov-2018 Instruction Type:Patient Education How to access health informa tion online - Detail Indication:Nonsmoker Start:11-Nov-2018 Instruction Type:Patient Education Patient Instructions Indication:Nonsmoker Start:11-Nov-2018 Instruction Type:Provider Instructions for Treatment How to access health informa tion online Indication:Cough Start:28-Feb-2016 Instruction Type:Patient Education How to access health informa tion online - Detail Indication:Cough Start:28-Feb-2016 Instruction Type:Patient Education Patient Instructions Indication:Cough Start:28-Feb-2016 Instruction Type:Provider Instructions for Treatment How to access health informa tion online Indication:Allergic rhinitis Start:24-Jun-2015 Instruction Type:Patient Education How to access health informa tion online - Detail Indication:Allergic rhinitis Start:24-Jun-2015 Instruction Type:Patient Education Patient Instructions Indication:Allergic rhinitis Start:24-Jun-2015 Instruction Type:Provider Instructions for Treatment Patient Instructions Indication:Osteopenia Start:05-May-2014 Instruction Type:Provider Instructions for Treatment Patient Instructions Indication:Benign essential hypertension Start:22-Apr-2013 Instruction Type:Provider Instructions for Treatment Patient Instructions Indication:Benign essential hypertension Start:03-Sep-2012 Instruction Type:Provider Instructions for Treatment Patient Instructions Indication:Osteopenia Start:31-Mar-2012 Instruction Type:Provider Instructions for Treatment Patient Instructions Indication:Benign essential hypertension Start:30-Jan-2012 Instruction Type:Provider Instructions for Treatment [facility] Work Phone: Instructions* Name Dates Details How to Access Health Informa tion Online using Patient Portal and [employer] Apps Indication:Nonsmoker Start:14-Nov-2021 Instruction Type:Patient Education Patient Instructions Indication:Nonsmoker Start:14-Nov-2021 Instruction Type:Provider Instructions for Treatment Patient Instructions Indication:BMI 27.0-27.9,adult Start:20-Feb-2021 Instruction Type:Provider Instructions for Treatment How to Access Health Informa tion Online using Patient Portal and [employer] Apps Indication:BMI 27.0-27.9,adult Start:20-Feb-2021 Instruction Type:Patient Education Patient Instructions Indication:Nonsmoker Start:25-Jul-2020 Instruction Type:Provider Instructions for Treatment How to Access Health Informa tion Online using Patient Portal and [employer] Apps Indication:Nonsmoker Start:25-Jul-2020 Instruction Type:Patient Education Patient Instructions Indication:Nonsmoker Start:11-Apr-2020 Instruction Type:Provider Instructions for Treatment How to Access Health Informa tion Online using Patient Portal and [employer] Apps Indication:Nonsmoker Start:11-Apr-2020 Instruction Type:Patient Education Patient Instructions Indication:Urinary frequency Start:01-Apr-2020 Instruction Type:Provider Instructions for Treatment How to Access Health Informa tion Online using Patient Portal and [employer] Apps Indication:Urinary frequency Start:01-Apr-2020 Instruction Type:Patient Education How to access health informa tion online Indication:Nonsmoker Start:01-Feb-2020 Instruction Type:Patient Education How to access health informa tion online - Detail Indication:Nonsmoker Start:01-Feb-2020 Instruction Type:Patient Education Patient Instructions Indication:Encounter for screening mammogram for breast cancer (Renamed from Encounter for screening mammogram for malignant neoplasm of breast) Start:01-Feb-2020 Instruction Type:Provider Instructions for Treatment How to access health informa tion online Indication:Nonsmoker Start:05-Aug-2019 Instruction Type:Patient Education How to access health informa tion online - Detail Indication:Nonsmoker Start:05-Aug-2019 Instruction Type:Patient Education Patient Instructions Indication:BMI 27.0-27.9,adult Start:05-Aug-2019 Instruction Type:Provider Instructions for Treatment How to access health informa tion online Indication:BMI 28.0-28.9,adult Start:14-Jul-2019 Instruction Type:Patient Education How to access health informa tion online - Detail Indication:BMI 28.0-28.9,adult Start:14-Jul-2019 Instruction Type:Patient Education Patient Instructions Indication:BMI 28.0-28.9,adult Start:14-Jul-2019 Instruction Type:Provider Instructions for Treatment How to access health informa tion online Indication:BMI 27.0-27.9,adult Start:20-Mar-2019 Instruction Type:Patient Education How to access health informa tion online - Detail Indication:BMI 27.0-27.9,adult Start:20-Mar-2019 Instruction Type:Patient Education Patient Instructions Indication:BMI 27.0-27.9,adult Start:20-Mar-2019 Instruction Type:Provider Instructions for Treatment How to access health informa tion online Indication:Nonsmoker Start:11-Nov-2018 Instruction Type:Patient Education How to access health informa tion online - Detail Indication:Nonsmoker Start:11-Nov-2018 Instruction Type:Patient Education Patient Instructions Indication:Nonsmoker Start:11-Nov-2018 Instruction Type:Provider Instructions for Treatment How to access health informa tion online Indication:Cough Start:28-Feb-2016 Instruction Type:Patient Education How to access health informa tion online - Detail Indication:Cough Start:28-Feb-2016 Instruction Type:Patient Education Patient Instructions Indication:Cough Start:28-Feb-2016 Instruction Type:Provider Instructions for Treatment How to access health informa tion online Indication:Allergic rhinitis Start:24-Jun-2015 Instruction Type:Patient Education How to access health informa tion online - Detail Indication:Allergic rhinitis Start:24-Jun-2015 Instruction Type:Patient Education Patient Instructions Indication:Allergic rhinitis Start:24-Jun-2015 Instruction Type:Provider Instructions for Treatment Patient Instructions Indication:Osteopenia Start:05-May-2014 Instruction Type:Provider Instructions for Treatment Patient Instructions Indication:Benign essential hypertension Start:22-Apr-2013 Instruction Type:Provider Instructions for Treatment Patient Instructions Indication:Benign essential hypertension Start:03-Sep-2012 Instruction Type:Provider Instructions for Treatment Patient Instructions Indication:Osteopenia Start:31-Mar-2012 Instruction Type:Provider Instructions for Treatment Patient Instructions Indication:Benign essential hypertension Start:30-Jan-2012 Instruction Type:Provider Instructions for Treatment [facility] Work Phone: Instructions* Name Dates Details How to Access Health Informa tion Online using Patient Portal and [employer] Apps Indication:Nonsmoker Start:14-Nov-2021 Instruction Type:Patient Education Patient Instructions Indication:Nonsmoker Start:14-Nov-2021 Instruction Type:Provider Instructions for Treatment Patient Instructions Indication:BMI 27.0-27.9,adult Start:20-Feb-2021 Instruction Type:Provider Instructions for Treatment How to Access Health Informa tion Online using Patient Portal and [employer] Apps Indication:BMI 27.0-27.9,adult Start:20-Feb-2021 Instruction Type:Patient Education Patient Instructions Indication:Nonsmoker Start:25-Jul-2020 Instruction Type:Provider Instructions for Treatment How to Access Health Informa tion Online using Patient Portal and [employer] Apps Indication:Nonsmoker Start:25-Jul-2020 Instruction Type:Patient Education Patient Instructions Indication:Nonsmoker Start:11-Apr-2020 Instruction Type:Provider Instructions for Treatment How to Access Health Informa tion Online using Patient Portal and [employer] Apps Indication:Nonsmoker Start:11-Apr-2020 Instruction Type:Patient Education Patient Instructions Indication:Urinary frequency Start:01-Apr-2020 Instruction Type:Provider Instructions for Treatment How to Access Health Informa tion Online using Patient Portal and [employer] Apps Indication:Urinary frequency Start:01-Apr-2020 Instruction Type:Patient Education How to access health informa tion online Indication:Nonsmoker Start:01-Feb-2020 Instruction Type:Patient Education How to access health informa tion online - Detail Indication:Nonsmoker Start:01-Feb-2020 Instruction Type:Patient Education Patient Instructions Indication:Encounter for screening mammogram for breast cancer (Renamed from Encounter for screening mammogram for malignant neoplasm of breast) Start:01-Feb-2020 Instruction Type:Provider Instructions for Treatment How to access health informa tion online Indication:Nonsmoker Start:05-Aug-2019 Instruction Type:Patient Education How to access health informa tion online - Detail Indication:Nonsmoker Start:05-Aug-2019 Instruction Type:Patient Education Patient Instructions Indication:BMI 27.0-27.9,adult Start:05-Aug-2019 Instruction Type:Provider Instructions for Treatment How to access health informa tion online Indication:BMI 28.0-28.9,adult Start:14-Jul-2019 Instruction Type:Patient Education How to access health informa tion online - Detail Indication:BMI 28.0-28.9,adult Start:14-Jul-2019 Instruction Type:Patient Education Patient Instructions Indication:BMI 28.0-28.9,adult Start:14-Jul-2019 Instruction Type:Provider Instructions for Treatment How to access health informa tion online Indication:BMI 27.0-27.9,adult Start:20-Mar-2019 Instruction Type:Patient Education How to access health informa tion online - Detail Indication:BMI 27.0-27.9,adult Start:20-Mar-2019 Instruction Type:Patient Education Patient Instructions Indication:BMI 27.0-27.9,adult Start:20-Mar-2019 Instruction Type:Provider Instructions for Treatment How to access health informa tion online Indication:Nonsmoker Start:11-Nov-2018 Instruction Type:Patient Education How to access health informa tion online - Detail Indication:Nonsmoker Start:11-Nov-2018 Instruction Type:Patient Education Patient Instructions Indication:Nonsmoker Start:11-Nov-2018 Instruction Type:Provider Instructions for Treatment How to access health informa tion online Indication:Cough Start:28-Feb-2016 Instruction Type:Patient Education How to access health informa tion online - Detail Indication:Cough Start:28-Feb-2016 Instruction Type:Patient Education Patient Instructions Indication:Cough Start:28-Feb-2016 Instruction Type:Provider Instructions for Treatment How to access health informa tion online Indication:Allergic rhinitis Start:24-Jun-2015 Instruction Type:Patient Education How to access health informa tion online - Detail Indication:Allergic rhinitis Start:24-Jun-2015 Instruction Type:Patient Education Patient Instructions Indication:Allergic rhinitis Start:24-Jun-2015 Instruction Type:Provider Instructions for Treatment Patient Instructions Indication:Osteopenia Start:05-May-2014 Instruction Type:Provider Instructions for Treatment Patient Instructions Indication:Benign essential hypertension Start:22-Apr-2013 Instruction Type:Provider Instructions for Treatment Patient Instructions Indication:Benign essential hypertension Start:03-Sep-2012 Instruction Type:Provider Instructions for Treatment Patient Instructions Indication:Osteopenia Start:31-Mar-2012 Instruction Type:Provider Instructions for Treatment Patient Instructions Indication:Benign essential hypertension Start:30-Jan-2012 Instruction Type:Provider Instructions for Treatment [facility] Work Phone: Instructions* Name Dates Details How to Access Health Informa tion Online using Patient Portal and [employer] Apps Indication:Nonsmoker Start:14-Nov-2021 Instruction Type:Patient Education Patient Instructions Indication:Nonsmoker Start:14-Nov-2021 Instruction Type:Provider Instructions for Treatment Patient Instructions Indication:BMI 27.0-27.9,adult Start:20-Feb-2021 Instruction Type:Provider Instructions for Treatment How to Access Health Informa tion Online using Patient Portal and [employer] Apps Indication:BMI 27.0-27.9,adult Start:20-Feb-2021 Instruction Type:Patient Education Patient Instructions Indication:Nonsmoker Start:25-Jul-2020 Instruction Type:Provider Instructions for Treatment How to Access Health Informa tion Online using Patient Portal and [employer] Apps Indication:Nonsmoker Start:25-Jul-2020 Instruction Type:Patient Education Patient Instructions Indication:Nonsmoker Start:11-Apr-2020 Instruction Type:Provider Instructions for Treatment How to Access Health Informa tion Online using Patient Portal and [employer] Apps Indication:Nonsmoker Start:11-Apr-2020 Instruction Type:Patient Education Patient Instructions Indication:Urinary frequency Start:01-Apr-2020 Instruction Type:Provider Instructions for Treatment How to Access Health Informa tion Online using Patient Portal and [employer] Apps Indication:Urinary frequency Start:01-Apr-2020 Instruction Type:Patient Education How to access health informa tion online Indication:Nonsmoker Start:01-Feb-2020 Instruction Type:Patient Education How to access health informa tion online - Detail Indication:Nonsmoker Start:01-Feb-2020 Instruction Type:Patient Education Patient Instructions Indication:Encounter for screening mammogram for breast cancer (Renamed from Encounter for screening mammogram for malignant neoplasm of breast) Start:01-Feb-2020 Instruction Type:Provider Instructions for Treatment How to access health informa tion online Indication:Nonsmoker Start:05-Aug-2019 Instruction Type:Patient Education How to access health informa tion online - Detail Indication:Nonsmoker Start:05-Aug-2019 Instruction Type:Patient Education Patient Instructions Indication:BMI 27.0-27.9,adult Start:05-Aug-2019 Instruction Type:Provider Instructions for Treatment How to access health informa tion online Indication:BMI 28.0-28.9,adult Start:14-Jul-2019 Instruction Type:Patient Education How to access health informa tion online - Detail Indication:BMI 28.0-28.9,adult Start:14-Jul-2019 Instruction Type:Patient Education Patient Instructions Indication:BMI 28.0-28.9,adult Start:14-Jul-2019 Instruction Type:Provider Instructions for Treatment How to access health informa tion online Indication:BMI 27.0-27.9,adult Start:20-Mar-2019 Instruction Type:Patient Education How to access health informa tion online - Detail Indication:BMI 27.0-27.9,adult Start:20-Mar-2019 Instruction Type:Patient Education Patient Instructions Indication:BMI 27.0-27.9,adult Start:20-Mar-2019 Instruction Type:Provider Instructions for Treatment How to access health informa tion online Indication:Nonsmoker Start:11-Nov-2018 Instruction Type:Patient Education How to access health informa tion online - Detail Indication:Nonsmoker Start:11-Nov-2018 Instruction Type:Patient Education Patient Instructions Indication:Nonsmoker Start:11-Nov-2018 Instruction Type:Provider Instructions for Treatment How to access health informa tion online Indication:Cough Start:28-Feb-2016 Instruction Type:Patient Education How to access health informa tion online - Detail Indication:Cough Start:28-Feb-2016 Instruction Type:Patient Education Patient Instructions Indication:Cough Start:28-Feb-2016 Instruction Type:Provider Instructions for Treatment How to access health informa tion online Indication:Allergic rhinitis Start:24-Jun-2015 Instruction Type:Patient Education How to access health informa tion online - Detail Indication:Allergic rhinitis Start:24-Jun-2015 Instruction Type:Patient Education Patient Instructions Indication:Allergic rhinitis Start:24-Jun-2015 Instruction Type:Provider Instructions for Treatment Patient Instructions Indication:Osteopenia Start:05-May-2014 Instruction Type:Provider Instructions for Treatment Patient Instructions Indication:Benign essential hypertension Start:22-Apr-2013 Instruction Type:Provider Instructions for Treatment Patient Instructions Indication:Benign essential hypertension Start:03-Sep-2012 Instruction Type:Provider Instructions for Treatment Patient Instructions Indication:Osteopenia Start:31-Mar-2012 Instruction Type:Provider Instructions for Treatment Patient Instructions Indication:Benign essential hypertension Start:30-Jan-2012 Instruction Type:Provider Instructions for Treatment [facility] Work Phone: Instructions* Name Dates Details How to Access Health Informa tion Online using Patient Portal and [employer] Indication:Nonsmoker Start:14-Nov-2021 Instruction Type:Patient Education Patient Instructions Indication:Nonsmoker Start:14-Nov-2021 Instruction Type:Provider Instructions for Treatment Patient Instructions Indication:BMI 27.0-27.9,adult Start:20-Feb-2021 Instruction Type:Provider Instructions for Treatment How to Access Health Informa tion Online using Patient Portal and [employer] Apps Indication:BMI 27.0-27.9,adult Start:20-Feb-2021 Instruction Type:Patient Education Patient Instructions Indication:Nonsmoker Start:25-Jul-2020 Instruction Type:Provider Instructions for Treatment How to Access Health Informa tion Online using Patient Portal and [employer] Apps Indication:Nonsmoker Start:25-Jul-2020 Instruction Type:Patient Education Patient Instructions Indication:Nonsmoker Start:11-Apr-2020 Instruction Type:Provider Instructions for Treatment How to Access Health Informa tion Online using Patient Portal and [employer] Apps Indication:Nonsmoker Start:11-Apr-2020 Instruction Type:Patient Education Patient Instructions Indication:Urinary frequency Start:01-Apr-2020 Instruction Type:Provider Instructions for Treatment How to Access Health Informa tion Online using Patient Portal and [employer] Apps Indication:Urinary frequency Start:01-Apr-2020 Instruction Type:Patient Education How to access health informa tion online Indication:Nonsmoker Start:01-Feb-2020 Instruction Type:Patient Education How to access health informa tion online - Detail Indication:Nonsmoker Start:01-Feb-2020 Instruction Type:Patient Education Patient Instructions Indication:Encounter for screening mammogram for breast cancer (Renamed from Encounter for screening mammogram for malignant neoplasm of breast) Start:01-Feb-2020 Instruction Type:Provider Instructions for Treatment How to access health informa tion online Indication:Nonsmoker Start:05-Aug-2019 Instruction Type:Patient Education How to access health informa tion online - Detail Indication:Nonsmoker Start:05-Aug-2019 Instruction Type:Patient Education Patient Instructions Indication:BMI 27.0-27.9,adult Start:05-Aug-2019 Instruction Type:Provider Instructions for Treatment How to access health informa tion online Indication:BMI 28.0-28.9,adult Start:14-Jul-2019 Instruction Type:Patient Education How to access health informa tion online - Detail Indication:BMI 28.0-28.9,adult Start:14-Jul-2019 Instruction Type:Patient Education Patient Instructions Indication:BMI 28.0-28.9,adult Start:14-Jul-2019 Instruction Type:Provider Instructions for Treatment How to access health informa tion online Indication:BMI 27.0-27.9,adult Start:20-Mar-2019 Instruction Type:Patient Education How to access health informa tion online - Detail Indication:BMI 27.0-27.9,adult Start:20-Mar-2019 Instruction Type:Patient Education Patient Instructions Indication:BMI 27.0-27.9,adult Start:20-Mar-2019 Instruction Type:Provider Instructions for Treatment How to access health informa tion online Indication:Nonsmoker Start:11-Nov-2018 Instruction Type:Patient Education How to access health informa tion online - Detail Indication:Nonsmoker Start:11-Nov-2018 Instruction Type:Patient Education Patient Instructions Indication:Nonsmoker Start:11-Nov-2018 Instruction Type:Provider Instructions for Treatment How to access health informa tion online Indication:Cough Start:28-Feb-2016 Instruction Type:Patient Education How to access health informa tion online - Detail Indication:Cough Start:28-Feb-2016 Instruction Type:Patient Education Patient Instructions Indication:Cough Start:28-Feb-2016 Instruction Type:Provider Instructions for Treatment How to access health informa tion online Indication:Allergic rhinitis Start:24-Jun-2015 Instruction Type:Patient Education How to access health informa tion online - Detail Indication:Allergic rhinitis Start:24-Jun-2015 Instruction Type:Patient Education Patient Instructions Indication:Allergic rhinitis Start:24-Jun-2015 Instruction Type:Provider Instructions for Treatment Patient Instructions Indication:Osteopenia Start:05-May-2014 Instruction Type:Provider Instructions for Treatment Patient Instructions Indication:Benign essential hypertension Start:22-Apr-2013 Instruction Type:Provider Instructions for Treatment Patient Instructions Indication:Benign essential hypertension Start:03-Sep-2012 Instruction Type:Provider Instructions for Treatment Patient Instructions Indication:Osteopenia Start:31-Mar-2012 Instruction Type:Provider Instructions for Treatment Patient Instructions Indication:Benign essential hypertension Start:30-Jan-2012 Instruction Type:Provider Instructions for Treatment [facility] Work Phone: Instructions* Name Dates Details Patient Instructions Indication:Nonsmoker Start:15-Aug-2022 Instruction Type:Provider Instructions for Treatment How to Access Health Informa tion Online using Patient Portal and [employer] Apps Indication:Nonsmoker Start:15-Aug-2022 Instruction Type:Patient Education How to Access Health Informa tion Online using Patient Portal and [employer] Apps Indication:Nonsmoker Start:14-Nov-2021 Instruction Type:Patient Education Patient Instructions Indication:Nonsmoker Start:14-Nov-2021 Instruction Type:Provider Instructions for Treatment Patient Instructions Indication:BMI 27.0-27.9,adult Start:20-Feb-2021 Instruction Type:Provider Instructions for Treatment How to Access Health Informa tion Online using Patient Portal and [employer] Apps Indication:BMI 27.0-27.9,adult Start:20-Feb-2021 Instruction Type:Patient Education Patient Instructions Indication:Nonsmoker Start:25-Jul-2020 Instruction Type:Provider Instructions for Treatment How to Access Health Informa tion Online using Patient Portal and [employer] Apps Indication:Nonsmoker Start:25-Jul-2020 Instruction Type:Patient Education Patient Instructions Indication:Nonsmoker Start:11-Apr-2020 Instruction Type:Provider Instructions for Treatment How to Access Health Informa tion Online using Patient Portal and [employer] Apps Indication:Nonsmoker Start:11-Apr-2020 Instruction Type:Patient Education Patient Instructions Indication:Urinary frequency Start:01-Apr-2020 Instruction Type:Provider Instructions for Treatment How to Access Health Informa tion Online using Patient Portal and [employer] Apps Indication:Urinary frequency Start:01-Apr-2020 Instruction Type:Patient Education How to access health informa tion online Indication:Nonsmoker Start:01-Feb-2020 Instruction Type:Patient Education How to access health informa tion online - Detail Indication:Nonsmoker Start:01-Feb-2020 Instruction Type:Patient Education Patient Instructions Indication:Encounter for screening mammogram for breast cancer (Renamed from Encounter for screening mammogram for malignant neoplasm of breast) Start:01-Feb-2020 Instruction Type:Provider Instructions for Treatment How to access health informa tion online Indication:Nonsmoker Start:05-Aug-2019 Instruction Type:Patient Education How to access health informa tion online - Detail Indication:Nonsmoker Start:05-Aug-2019 Instruction Type:Patient Education Patient Instructions Indication:BMI 27.0-27.9,adult Start:05-Aug-2019 Instruction Type:Provider Instructions for Treatment How to access health informa tion online Indication:BMI 28.0-28.9,adult Start:14-Jul-2019 Instruction Type:Patient Education How to access health informa tion online - Detail Indication:BMI 28.0-28.9,adult Start:14-Jul-2019 Instruction Type:Patient Education Patient Instructions Indication:BMI 28.0-28.9,adult Start:14-Jul-2019 Instruction Type:Provider Instructions for Treatment How to access health informa tion online Indication:BMI 27.0-27.9,adult Start:20-Mar-2019 Instruction Type:Patient Education How to access health informa tion online - Detail Indication:BMI 27.0-27.9,adult Start:20-Mar-2019 Instruction Type:Patient Education Patient Instructions Indication:BMI 27.0-27.9,adult Start:20-Mar-2019 Instruction Type:Provider Instructions for Treatment How to access health informa tion online Indication:Nonsmoker Start:11-Nov-2018 Instruction Type:Patient Education How to access health informa tion online - Detail Indication:Nonsmoker Start:11-Nov-2018 Instruction Type:Patient Education Patient Instructions Indication:Nonsmoker Start:11-Nov-2018 Instruction Type:Provider Instructions for Treatment How to access health informa tion online Indication:Cough Start:28-Feb-2016 Instruction Type:Patient Education How to access health informa tion online - Detail Indication:Cough Start:28-Feb-2016 Instruction Type:Patient Education Patient Instructions Indication:Cough Start:28-Feb-2016 Instruction Type:Provider Instructions for Treatment How to access health informa tion online Indication:Allergic rhinitis Start:24-Jun-2015 Instruction Type:Patient Education How to access health informa tion online - Detail Indication:Allergic rhinitis Start:24-Jun-2015 Instruction Type:Patient Education Patient Instructions Indication:Allergic rhinitis Start:24-Jun-2015 Instruction Type:Provider Instructions for Treatment Patient Instructions Indication:Osteopenia Start:05-May-2014 Instruction Type:Provider Instructions for Treatment Patient Instructions Indication:Benign essential hypertension Start:22-Apr-2013 Instruction Type:Provider Instructions for Treatment Patient Instructions Indication:Benign essential hypertension Start:03-Sep-2012 Instruction Type:Provider Instructions for Treatment Patient Instructions Indication:Osteopenia Start:31-Mar-2012 Instruction Type:Provider Instructions for Treatment Patient Instructions Indication:Benign essential hypertension Start:30-Jan-2012 Instruction Type:Provider Instructions for Treatment [facility] Work Phone: Instructions* Name Dates Details Patient Instructions Indication:Nonsmoker Start:15-Aug-2022 Instruction Type:Provider Instructions for Treatment How to Access Health Informa tion Online using Patient Portal and [employer] Apps Indication:Nonsmoker Start:15-Aug-2022 Instruction Type:Patient Education How to Access Health Informa tion Online using Patient Portal and [employer] Apps Indication:Nonsmoker Start:14-Nov-2021 Instruction Type:Patient Education Patient Instructions Indication:Nonsmoker Start:14-Nov-2021 Instruction Type:Provider Instructions for Treatment Patient Instructions Indication:BMI 27.0-27.9,adult Start:20-Feb-2021 Instruction Type:Provider Instructions for Treatment How to Access Health Informa tion Online using Patient Portal and [employer] Apps Indication:BMI 27.0-27.9,adult Start:20-Feb-2021 Instruction Type:Patient Education Patient Instructions Indication:Nonsmoker Start:25-Jul-2020 Instruction Type:Provider Instructions for Treatment How to Access Health Informa tion Online using Patient Portal and [employer] Apps Indication:Nonsmoker Start:25-Jul-2020 Instruction Type:Patient Education Patient Instructions Indication:Nonsmoker Start:1-Feb-2021 Instruction Type:Provider Instructions for Treatment How to Access Health Informa tion Online using Patient Portal and [employer] Apps Indication:Nonsmoker Start:11-Apr-2020 Instruction Type:Patient Education Patient Instructions Indication:Urinary frequency Start:01-Apr-2020 Instruction Type:Provider Instructions for Treatment How to Access Health Informa tion Online using Patient Portal and [employer] Apps Indication:Urinary frequency Start:01-Apr-2020 Instruction Type:Patient Education How to access health informa tion online Indication:Nonsmoker Start:01-Feb-2020 Instruction Type:Patient Education How to access health informa tion online - Detail Indication:Nonsmoker Start:01-Feb-2020 Instruction Type:Patient Education Patient Instructions Indication:Encounter for screening mammogram for breast cancer (Renamed from Encounter for screening mammogram for malignant neoplasm of breast) Start:01-Feb-2020 Instruction Type:Provider Instructions for Treatment How to access health informa tion online Indication:Nonsmoker Start:05-Aug-2019 Instruction Type:Patient Education How to access health informa tion online - Detail Indication:Nonsmoker Start:05-Aug-2019 Instruction Type:Patient Education Patient Instructions Indication:BMI 27.0-27.9,adult Start:05-Aug-2019 Instruction Type:Provider Instructions for Treatment How to access health informa tion online Indication:BMI 28.0-28.9,adult Start:14-Jul-2019 Instruction Type:Patient Education How to access health informa tion online - Detail Indication:BMI 28.0-28.9,adult Start:14-Jul-2019 Instruction Type:Patient Education Patient Instructions Indication:BMI 28.0-28.9,adult Start:14-Jul-2019 Instruction Type:Provider Instructions for Treatment How to access health informa tion online Indication:BMI 27.0-27.9,adult Start:20-Mar-2019 Instruction Type:Patient Education How to access health informa tion online - Detail Indication:BMI 27.0-27.9,adult Start:20-Mar-2019 Instruction Type:Patient Education Patient Instructions Indication:BMI 27.0-27.9,adult Start:20-Mar-2019 Instruction Type:Provider Instructions for Treatment How to access health informa tion online Indication:Nonsmoker Start:11-Nov-2018 Instruction Type:Patient Education How to access health informa tion online - Detail Indication:Nonsmoker Start:11-Nov-2018 Instruction Type:Patient Education Patient Instructions Indication:Nonsmoker Start:11-Nov-2018 Instruction Type:Provider Instructions for Treatment How to access health informa tion online Indication:Cough Start:28-Feb-2016 Instruction Type:Patient Education How to access health informa tion online - Detail Indication:Cough Start:28-Feb-2016 Instruction Type:Patient Education Patient Instructions Indication:Cough Start:28-Feb-2016 Instruction Type:Provider Instructions for Treatment How to access health informa tion online Indication:Allergic rhinitis Start:24-Jun-2015 Instruction Type:Patient Education How to access health informa tion online - Detail Indication:Allergic rhinitis Start:24-Jun-2015 Instruction Type:Patient Education Patient Instructions Indication:Allergic rhinitis Start:24-Jun-2015 Instruction Type:Provider Instructions for Treatment Patient Instructions Indication:Osteopenia Start:05-May-2014 Instruction Type:Provider Instructions for Treatment Patient Instructions Indication:Benign essential hypertension Start:22-Apr-2013 Instruction Type:Provider Instructions for Treatment Patient Instructions Indication:Benign essential hypertension Start:03-Sep-2012 Instruction Type:Provider Instructions for Treatment Patient Instructions Indication:Osteopenia Start:31-Mar-2012 Instruction Type:Provider Instructions for Treatment Patient Instructions Indication:Benign essential hypertension Start:30-Jan-2012 Instruction Type:Provider Instructions for Treatment [facility] Work Phone: Instructions* Name Dates Details Patient Instructions Indication:Nonsmoker Start:15-Aug-2022 Instruction Type:Provider Instructions for Treatment How to Access Health Informa tion Online using Patient Portal and [employer]rd [employer] Apps Indication:Nonsmoker Start:15-Aug-2022 Instruction Type:Patient Education How to Access Health Informa tion Online using Patient Portal and [employer] Apps Indication:Nonsmoker Start:14-Nov-2021 Instruction Type:Patient Education Patient Instructions Indication:Nonsmoker Start:14-Nov-2021 Instruction Type:Provider Instructions for Treatment Patient Instructions Indication:BMI 27.0-27.9,adult Start:20-Feb-2021 Instruction Type:Provider Instructions for Treatment How to Access Health Informa tion Online using Patient Portal and [employer] Apps Indication:BMI 27.0-27.9,adult Start:20-Feb-2021 Instruction Type:Patient Education Patient Instructions Indication:Nonsmoker Start:25-Jul-2020 Instruction Type:Provider Instructions for Treatment How to Access Health Informa tion Online using Patient Portal and [employer] Apps Indication:Nonsmoker Start:25-Jul-2020 Instruction Type:Patient Education Patient Instructions Indication:Nonsmoker Start:11-Apr-2020 Instruction Type:Provider Instructions for Treatment How to Access Health Informa tion Online using Patient Portal and [employer] Apps Indication:Nonsmoker Start:11-Apr-2020 Instruction Type:Patient Education Patient Instructions Indication:Urinary frequency Start:01-Apr-2020 Instruction Type:Provider Instructions for Treatment How to Access Health Informa tion Online using Patient Portal and [employer] Apps Indication:Urinary frequency Start:01-Apr-2020 Instruction Type:Patient Education How to access health informa tion online Indication:Nonsmoker Start:01-Feb-2020 Instruction Type:Patient Education How to access health informa tion online - Detail Indication:Nonsmoker Start:01-Feb-2020 Instruction Type:Patient Education Patient Instructions Indication:Encounter for screening mammogram for breast cancer (Renamed from Encounter for screening mammogram for malignant neoplasm of breast) Start:01-Feb-2020 Instruction Type:Provider Instructions for Treatment How to access health informa tion online Indication:Nonsmoker Start:05-Aug-2019 Instruction Type:Patient Education How to access health informa tion online - Detail Indication:Nonsmoker Start:05-Aug-2019 Instruction Type:Patient Education Patient Instructions Indication:BMI 27.0-27.9,adult Start:05-Aug-2019 Instruction Type:Provider Instructions for Treatment How to access health informa tion online Indication:BMI 28.0-28.9,adult Start:14-Jul-2019 Instruction Type:Patient Education How to access health informa tion online - Detail Indication:BMI 28.0-28.9,adult Start:14-Jul-2019 Instruction Type:Patient Education Patient Instructions Indication:BMI 28.0-28.9,adult Start:14-Jul-2019 Instruction Type:Provider Instructions for Treatment How to access health informa tion online Indication:BMI 27.0-27.9,adult Start:20-Mar-2019 Instruction Type:Patient Education How to access health informa tion online - Detail Indication:BMI 27.0-27.9,adult Start:20-Mar-2019 Instruction Type:Patient Education Patient Instructions Indication:BMI 27.0-27.9,adult Start:20-Mar-2019 Instruction Type:Provider Instructions for Treatment How to access health informa tion online Indication:Nonsmoker Start:11-Nov-2018 Instruction Type:Patient Education How to access health informa tion online - Detail Indication:Nonsmoker Start:11-Nov-2018 Instruction Type:Patient Education Patient Instructions Indication:Nonsmoker Start:11-Nov-2018 Instruction Type:Provider Instructions for Treatment How to access health informa tion online Indication:Cough Start:28-Feb-2016 Instruction Type:Patient Education How to access health informa tion online - Detail Indication:Cough Start:28-Feb-2016 Instruction Type:Patient Education Patient Instructions Indication:Cough Start:28-Feb-2016 Instruction Type:Provider Instructions for Treatment How to access health informa tion online Indication:Allergic rhinitis Start:24-Jun-2015 Instruction Type:Patient Education How to access health informa tion online - Detail Indication:Allergic rhinitis Start:24-Jun-2015 Instruction Type:Patient Education Patient Instructions Indication:Allergic rhinitis Start:24-Jun-2015 Instruction Type:Provider Instructions for Treatment Patient Instructions Indication:Osteopenia Start:05-May-2014 Instruction Type:Provider Instructions for Treatment Patient Instructions Indication:Benign essential hypertension Start:22-Apr-2013 Instruction Type:Provider Instructions for Treatment Patient Instructions Indication:Benign essential hypertension Start:03-Sep-2012 Instruction Type:Provider Instructions for Treatment Patient Instructions Indication:Osteopenia Start:31-Mar-2012 Instruction Type:Provider Instructions for Treatment Patient Instructions Indication:Benign essential hypertension Start:30-Jan-2012 Instruction Type:Provider Instructions for Treatment [facility] Work Phone: reason for referral (narrative)No reason for referral information available[facility]: Family History No Family History Records FoundUnknown Family Member Name Dates Details Father Comments:In good health Status:Active Mother Comments:High cholesterol, B P. Status:Active Sister 1 Comments:4 healthy Status:Active Unknown Family Member Name Dates Details Father Comments:In good health Status:Active Father Comments:prostate cancer, hi gh blood pressure, cholestrol Status:Active Mother Comments:High cholesterol, B P. Status:Active Mother Comments:high blood pressure Status:Active Sister 1 Comments:4 healthy Status:Active Unknown Family Member Name Dates Details Father Comments:In good health Status:Active Father Comments:prostate cancer, hi gh blood pressure, cholestrol Status:Active Mother Comments:High cholesterol, B P. Status:Active Mother Comments:high blood pressure Status:Active Sister 1 Comments:4 healthy Status:Active Unknown Family Member Name Dates Details Father Comments:In good health Status:Active Father Comments:prostate cancer, hi gh blood pressure, cholestrol Status:Active Mother Comments:high blood pressure Status:Active Mother Comments:High cholesterol, B P. Status:Active Sister 1 Comments:4 healthy Status:Active Unknown Family Member Name Dates Details Father Comments:In good health Status:Active Father Comments:prostate cancer, hi gh blood pressure, cholestrol Status:Active Mother Comments:high blood pressure Status:Active Mother Comments:High cholesterol, B P. Status:Active Sister 1 Comments:4 healthy Status:Active Unknown Family Member Name Dates Details Father Comments:In good health Status:Active Father Comments:prostate cancer, hi gh blood pressure, cholestrol Status:Active Mother Comments:high blood pressure Status:Active Mother Comments:High cholesterol, B P. Status:Active Sister 1 Comments:4 healthy Status:Active Unknown Family Member Name Dates Details Father Comments:In good health Status:Active Father Comments:prostate cancer, hi gh blood pressure, cholestrol Status:Active Mother Comments:High cholesterol, B P. Status:Active Mother Comments:high blood pressure Status:Active Sister 1 Comments:4 healthy Status:Active Unknown Family Member Name Dates Details Father Comments:prostate cancer, hi gh blood pressure, cholestrol Status:Active Father Comments:In good health Status:Active Mother Comments:high blood pressure Status:Active Mother Comments:High cholesterol, B P. Status:Active Sister 1 Comments:4 healthy Status:Active Unknown Family Member Name Dates Details Father Comments:prostate cancer, hi gh blood pressure, cholestrol Status:Active Father Comments:In good health Status:Active Mother Comments:high blood pressure Status:Active Mother Comments:High cholesterol, B P. Status:Active Sister 1 Comments:4 healthy Status:Active Unknown Family Member Name Dates Details Father Comments:prostate cancer, hi gh blood pressure, cholestrol Status:Active Father Comments:In good health Status:Active Mother Comments:high blood pressure Status:Active Mother Comments:High cholesterol, B P. Status:Active Sister 1 Comments:4 healthy Status:Active Relationship Condition Age at Onset Recorded Date/T ramiro Not Specified Cardiac disease Unknown Hypertension Unknown Unknown Family Member Name Dates Details Father Comments:prostate cancer, hi gh blood pressure, cholestrol Status:Active Father Comments:In good health Status:Active Mother Comments:High cholesterol, B P. Status:Active Mother Comments:high blood pressure Status:Active Sister 1 Comments:4 healthy Status:Active Unknown Family Member Name Dates Details Father Comments:prostate cancer, hi gh blood pressure, cholestrol Status:Active Father Comments:In good health Status:Active Mother Comments:high blood pressure Status:Active Mother Comments:High cholesterol, B P. Status:Active Sister 1 Comments:4 healthy Status:Active Unknown Family Member Name Dates Details Father Comments:prostate cancer, hi gh blood pressure, cholestrol Status:Active Father Comments:In good health Status:Active Mother Comments:high blood pressure Status:Active Mother Comments:High cholesterol, B P. Status:Active Sister 1 Comments:4 healthy Status:Active Unknown Family Member Name Dates Details Father Comments:In good health Status:Active Father Comments:prostate cancer, hi gh blood pressure, cholestrol Status:Active Mother Comments:high blood pressure Status:Active Mother Comments:High cholesterol, B P. Status:Active Sister 1 Comments:4 healthy Status:Active Unknown Family Member Name Dates Details Father Comments:In good health Status:Active Father Comments:prostate cancer, hi gh blood pressure, cholestrol Status:Active Mother Comments:high blood pressure Status:Active Mother Comments:High cholesterol, B P. Status:Active Sister 1 Comments:4 healthy Status:Active Unknown Family Member Name Dates Details Father Comments:prostate cancer, hi gh blood pressure, cholestrol Status:Active Father Comments:In good health Status:Active Mother Comments:high blood pressure Status:Active Mother Comments:High cholesterol, B P. Status:Active Sister 1 Comments:4 healthy Status:Active Unknown Family Member Name Dates Details Father Comments:In good health Status:Active Father Comments:prostate cancer, hi gh blood pressure, cholestrol Status:Active Mother Comments:high blood pressure Status:Active Mother Comments:High cholesterol, B P. Status:Active Sister 1 Comments:4 healthy Status:Active Unknown Family Member Name Dates Details Father Comments:prostate cancer, hi gh blood pressure, cholestrol Status:Active Father Comments:In good health Status:Active Mother Comments:high blood pressure Status:Active Mother Comments:High cholesterol, B P. Status:Active Sister 1 Comments:4 healthy Status:Active Instructions Name Dates Details How to access health informa tion online Indication:Cough Start:28-Feb-2016 Instruction Type:Patient Education How to access health informa tion online - Detail Indication:Cough Start:28-Feb-2016 Instruction Type:Patient Education Patient Instructions Indication:Cough Start:28-Feb-2016 Instruction Type:Provider Instructions for Treatment How to access health informa tion online Indication:Allergic rhinitis Start:24-Jun-2015 Instruction Type:Patient Education How to access health informa tion online - Detail Indication:Allergic rhinitis Start:24-Jun-2015 Instruction Type:Patient Education Patient Instructions Indication:Allergic rhinitis Start:24-Jun-2015 Instruction Type:Provider Instructions for Treatment Patient Instructions Indication:Osteopenia Start:05-May-2014 Instruction Type:Provider Instructions for Treatment Patient Instructions Indication:Benign essential hypertension Start:22-Apr-2013 Instruction Type:Provider Instructions for Treatment Patient Instructions Indication:Benign essential hypertension Start:03-Sep-2012 Instruction Type:Provider Instructions for Treatment Patient Instructions Indication:Osteopenia Start:31-Mar-2012 Instruction Type:Provider Instructions for Treatment Patient Instructions Indication:Benign essential hypertension Start:30-Jan-2012 Instruction Type:Provider Instructions for Treatment Name Dates Details How to access health informa tion online Indication:Nonsmoker Start:11-Nov-2018 Instruction Type:Patient Education How to access health informa tion online - Detail Indication:Nonsmoker Start:11-Nov-2018 Instruction Type:Patient Education Patient Instructions Indication:Nonsmoker Start:11-Nov-2018 Instruction Type:Provider Instructions for Treatment How to access [employer] informa [employer] online Indication:Cough Start:28-Feb-2016 Instruction Type:Patient Education How to access health informa tion online - Detail Indication:Cough Start:28-Feb-2016 Instruction Type:Patient Education Patient Instructions Indication:Cough Start:28-Feb-2016 Instruction Type:Provider Instructions for Treatment How to access health informa tion online Indication:Allergic rhinitis Start:24-Jun-2015 Instruction Type:Patient Education How to access health informa tion online - Detail Indication:Allergic rhinitis Start:24-Jun-2015 Instruction Type:Patient Education Patient Instructions Indication:Allergic rhinitis Start:24-Jun-2015 Instruction Type:Provider Instructions for Treatment Patient Instructions Indication:Osteopenia Start:05-May-2014 Instruction Type:Provider Instructions for Treatment Patient Instructions Indication:Benign essential hypertension Start:22-Apr-2013 Instruction Type:Provider Instructions for Treatment Patient Instructions Indication:Benign essential hypertension Start:03-Sep-2012 Instruction Type:Provider Instructions for Treatment Patient Instructions Indication:Osteopenia Start:31-Mar-2012 Instruction Type:Provider Instructions for Treatment Patient Instructions Indication:Benign essential hypertension Start:30-Jan-2012 Instruction Type:Provider Instructions for Treatment Name Dates Details How to access health informa tion online Indication:Nonsmoker Start:11-Nov-2018 Instruction Type:Patient Education How to access health informa tion online - Detail Indication:Nonsmoker Start:11-Nov-2018 Instruction Type:Patient Education Patient Instructions Indication:Nonsmoker Start:11-Nov-2018 Instruction Type:Provider Instructions for Treatment How to access health informa tion online Indication:Cough Start:28-Feb-2016 Instruction Type:Patient Education How to access health informa tion online - Detail Indication:Cough Start:28-Feb-2016 Instruction Type:Patient Education Patient Instructions Indication:Cough Start:28-Feb-2016 Instruction Type:Provider Instructions for Treatment How to access health informa tion online Indication:Allergic rhinitis Start:24-Jun-2015 Instruction Type:Patient Education How to access health informa tion online - Detail Indication:Allergic rhinitis Start:24-Jun-2015 Instruction Type:Patient Education Patient Instructions Indication:Allergic rhinitis Start:24-Jun-2015 Instruction Type:Provider Instructions for Treatment Patient Instructions Indication:Osteopenia Start:05-May-2014 Instruction Type:Provider Instructions for Treatment Patient Instructions Indication:Benign essential hypertension Start:22-Apr-2013 Instruction Type:Provider Instructions for Treatment Patient Instructions Indication:Benign essential hypertension Start:03-Sep-2012 Instruction Type:Provider Instructions for Treatment Patient Instructions Indication:Osteopenia Start:31-Mar-2012 Instruction Type:Provider Instructions for Treatment Patient Instructions Indication:Benign essential hypertension Start:30-Jan-2012 Instruction Type:Provider Instructions for Treatment Name Dates Details How to access health informa tion online Indication:Nonsmoker Start:05-Aug-2019 Instruction Type:Patient Education How to access health informa tion online - Detail Indication:Nonsmoker Start:05-Aug-2019 Instruction Type:Patient Education Patient Instructions Indication:BMI 27.0-27.9,adult Start:05-Aug-2019 Instruction Type:Provider Instructions for Treatment How to access health informa tion online Indication:BMI 28.0-28.9,adult Start:14-Jul-2019 Instruction Type:Patient Education How to access health informa tion online - Detail Indication:BMI 28.0-28.9,adult Start:14-Jul-2019 Instruction Type:Patient Education Patient Instructions Indication:BMI 28.0-28.9,adult Start:14-Jul-2019 Instruction Type:Provider Instructions for Treatment How to access health informa tion online Indication:BMI 27.0-27.9,adult Start:20-Mar-2019 Instruction Type:Patient Education How to access health informa tion online - Detail Indication:BMI 27.0-27.9,adult Start:20-Mar-2019 Instruction Type:Patient Education Patient Instructions Indication:BMI 27.0-27.9,adult Start:20-Mar-2019 Instruction Type:Provider Instructions for Treatment How to access health informa tion online Indication:Nonsmoker Start:11-Nov-2018 Instruction Type:Patient Education How to access health informa tion online - Detail Indication:Nonsmoker Start:11-Nov-2018 Instruction Type:Patient Education Patient Instructions Indication:Nonsmoker Start:11-Nov-2018 Instruction Type:Provider Instructions for Treatment How to access health informa tion online Indication:Cough Start:28-Feb-2016 Instruction Type:Patient Education How to access health informa tion online - Detail Indication:Cough Start:28-Feb-2016 Instruction Type:Patient Education Patient Instructions Indication:Cough Start:28-Feb-2016 Instruction Type:Provider Instructions for Treatment How to access health informa tion online Indication:Allergic rhinitis Start:24-Jun-2015 Instruction Type:Patient Education How to access health informa tion online - Detail Indication:Allergic rhinitis Start:24-Jun-2015 Instruction Type:Patient Education Patient Instructions Indication:Allergic rhinitis Start:24-Jun-2015 Instruction Type:Provider Instructions for Treatment Patient Instructions Indication:Osteopenia Start:05-May-2014 Instruction Type:Provider Instructions for Treatment Patient Instructions Indication:Benign essential hypertension Start:22-Apr-2013 Instruction Type:Provider Instructions for Treatment Patient Instructions Indication:Benign essential hypertension Start:03-Sep-2012 Instruction Type:Provider Instructions for Treatment Patient Instructions Indication:Osteopenia Start:31-Mar-2012 Instruction Type:Provider Instructions for Treatment Patient Instructions Indication:Benign essential hypertension Start:30-Jan-2012 Instruction Type:Provider Instructions for Treatment Name Dates Details How to access health informa tion online Indication:Nonsmoker Start:01-Feb-2020 Instruction Type:Patient Education How to access health informa tion online - Detail Indication:Nonsmoker Start:01-Feb-2020 Instruction Type:Patient Education Patient Instructions Indication:Encounter for screening mammogram for breast cancer (Renamed from Encounter for screening mammogram for malignant neoplasm of breast) Start:01-Feb-2020 Instruction Type:Provider Instructions for Treatment How to access health informa tion online Indication:Nonsmoker Start:05-Aug-2019 Instruction Type:Patient Education How to access health informa tion online - Detail Indication:Nonsmoker Start:05-Aug-2019 Instruction Type:Patient Education Patient Instructions Indication:BMI 27.0-27.9,adult Start:05-Aug-2019 Instruction Type:Provider Instructions for Treatment How to access health informa tion online Indication:BMI 28.0-28.9,adult Start:14-Jul-2019 Instruction Type:Patient Education How to access health informa tion online - Detail Indication:BMI 28.0-28.9,adult Start:14-Jul-2019 Instruction Type:Patient Education Patient Instructions Indication:BMI 28.0-28.9,adult Start:14-Jul-2019 Instruction Type:Provider Instructions for Treatment How to access health informa tion online Indication:BMI 27.0-27.9,adult Start:20-Mar-2019 Instruction Type:Patient Education How to access health informa tion online - Detail Indication:BMI 27.0-27.9,adult Start:20-Mar-2019 Instruction Type:Patient Education Patient Instructions Indication:BMI 27.0-27.9,adult Start:20-Mar-2019 Instruction Type:Provider Instructions for Treatment How to access health informa tion online Indication:Nonsmoker Start:11-Nov-2018 Instruction Type:Patient Education How to access health informa tion online - Detail Indication:Nonsmoker Start:11-Nov-2018 Instruction Type:Patient Education Patient Instructions Indication:Nonsmoker Start:11-Nov-2018 Instruction Type:Provider Instructions for Treatment How to access health informa tion online Indication:Cough Start:28-Feb-2016 Instruction Type:Patient Education How to access health informa tion online - Detail Indication:Cough Start:28-Feb-2016 Instruction Type:Patient Education Patient Instructions Indication:Cough Start:28-Feb-2016 Instruction Type:Provider Instructions for Treatment How to access health informa tion online Indication:Allergic rhinitis Start:24-Jun-2015 Instruction Type:Patient Education How to access health informa tion online - Detail Indication:Allergic rhinitis Start:24-Jun-2015 Instruction Type:Patient Education Patient Instructions Indication:Allergic rhinitis Start:24-Jun-2015 Instruction Type:Provider Instructions for Treatment Patient Instructions Indication:Osteopenia Start:05-May-2014 Instruction Type:Provider Instructions for Treatment Patient Instructions Indication:Benign essential hypertension Start:22-Apr-2013 Instruction Type:Provider Instructions for Treatment Patient Instructions Indication:Benign essential hypertension Start:03-Sep-2012 Instruction Type:Provider Instructions for Treatment Patient Instructions Indication:Osteopenia Start:31-Mar-2012 Instruction Type:Provider Instructions for Treatment Patient Instructions Indication:Benign essential hypertension Start:30-Jan-2012 Instruction Type:Provider Instructions for Treatment Name Dates Details How to access health informa tion online Indication:Nonsmoker Start:05-Aug-2019 Instruction Type:Patient Education How to access health informa tion online - Detail Indication:Nonsmoker Start:05-Aug-2019 Instruction Type:Patient Education Patient Instructions Indication:BMI 27.0-27.9,adult Start:05-Aug-2019 Instruction Type:Provider Instructions for Treatment How to access health informa tion online Indication:BMI 28.0-28.9,adult Start:14-Jul-2019 Instruction Type:Patient Education How to access health informa tion online - Detail Indication:BMI 28.0-28.9,adult Start:14-Jul-2019 Instruction Type:Patient Education Patient Instructions Indication:BMI 28.0-28.9,adult Start:14-Jul-2019 Instruction Type:Provider Instructions for Treatment How to access health informa tion online Indication:BMI 27.0-27.9,adult Start:20-Mar-2019 Instruction Type:Patient Education How to access health informa tion online - Detail Indication:BMI 27.0-27.9,adult Start:20-Mar-2019 Instruction Type:Patient Education Patient Instructions Indication:BMI 27.0-27.9,adult Start:20-Mar-2019 Instruction Type:Provider Instructions for Treatment How to access health informa tion online Indication:Nonsmoker Start:11-Nov-2018 Instruction Type:Patient Education How to access health informa tion online - Detail Indication:Nonsmoker Start:11-Nov-2018 Instruction Type:Patient Education Patient Instructions Indication:Nonsmoker Start:11-Nov-2018 Instruction Type:Provider Instructions for Treatment How to access health informa tion online Indication:Cough Start:28-Feb-2016 Instruction Type:Patient Education How to access health informa tion online - Detail Indication:Cough Start:28-Feb-2016 Instruction Type:Patient Education Patient Instructions Indication:Cough Start:28-Feb-2016 Instruction Type:Provider Instructions for Treatment How to access health informa tion online Indication:Allergic rhinitis Start:24-Jun-2015 Instruction Type:Patient Education How to access health informa tion online - Detail Indication:Allergic rhinitis Start:24-Jun-2015 Instruction Type:Patient Education Patient Instructions Indication:Allergic rhinitis Start:24-Jun-2015 Instruction Type:Provider Instructions for Treatment Patient Instructions Indication:Osteopenia Start:05-May-2014 Instruction Type:Provider Instructions for Treatment Patient Instructions Indication:Benign essential hypertension Start:22-Apr-2013 Instruction Type:Provider Instructions for Treatment Patient Instructions Indication:Benign essential hypertension Start:03-Sep-2012 Instruction Type:Provider Instructions for Treatment Patient Instructions Indication:Osteopenia Start:31-Mar-2012 Instruction Type:Provider Instructions for Treatment Patient Instructions Indication:Benign essential hypertension Start:30-Jan-2012 Instruction Type:Provider Instructions for Treatment Name Dates Details How to access health informa tion online Indication:Nonsmoker Start:11-Nov-2018 Instruction Type:Patient Education How to access health informa tion online - Detail Indication:Nonsmoker Start:11-Nov-2018 Instruction Type:Patient Education Patient Instructions Indication:Nonsmoker Start:11-Nov-2018 Instruction Type:Provider Instructions for Treatment How to access health informa tion online Indication:Cough Start:28-Feb-2016 Instruction Type:Patient Education How to access health informa tion online - Detail Indication:Cough Start:28-Feb-2016 Instruction Type:Patient Education Patient Instructions Indication:Cough Start:28-Feb-2016 Instruction Type:Provider Instructions for Treatment How to access health informa tion online Indication:Allergic rhinitis Start:24-Jun-2015 Instruction Type:Patient Education How to access health informa tion online - Detail Indication:Allergic rhinitis Start:24-Jun-2015 Instruction Type:Patient Education Patient Instructions Indication:Allergic rhinitis Start:24-Jun-2015 Instruction Type:Provider Instructions for Treatment Patient Instructions Indication:Osteopenia Start:05-May-2014 Instruction Type:Provider Instructions for Treatment Patient Instructions Indication:Benign essential hypertension Start:22-Apr-2013 Instruction Type:Provider Instructions for Treatment Patient Instructions Indication:Benign essential hypertension Start:03-Sep-2012 Instruction Type:Provider Instructions for Treatment Patient Instructions Indication:Osteopenia Start:31-Mar-2012 Instruction Type:Provider Instructions for Treatment Patient Instructions Indication:Benign essential hypertension Start:30-Jan-2012 Instruction Type:Provider Instructions for Treatment Name Dates Details Patient Instructions Indication:Nonsmoker Start:11-Apr-2020 Instruction Type:Provider Instructions for Treatment How to Access Health Informa tion Online using Patient Portal and [employer] Apps Indication:Nonsmoker Start:11-Apr-2020 Instruction Type:Patient Education Patient Instructions Indication:Urinary frequency Start:01-Apr-2020 Instruction Type:Provider Instructions for Treatment How to Access Health Informa tion Online using Patient Portal and [employer] Apps Indication:Urinary frequency Start:01-Apr-2020 Instruction Type:Patient Education How to access health informa tion online Indication:Nonsmoker Start:01-Feb-2020 Instruction Type:Patient Education How to access health informa tion online - Detail Indication:Nonsmoker Start:01-Feb-2020 Instruction Type:Patient Education Patient Instructions Indication:Encounter for screening mammogram for breast cancer (Renamed from Encounter for screening mammogram for malignant neoplasm of breast) Start:01-Feb-2020 Instruction Type:Provider Instructions for Treatment How to access health informa tion online Indication:Nonsmoker Start:05-Aug-2019 Instruction Type:Patient Education How to access health informa tion online - Detail Indication:Nonsmoker Start:05-Aug-2019 Instruction Type:Patient Education Patient Instructions Indication:BMI 27.0-27.9,adult Start:05-Aug-2019 Instruction Type:Provider Instructions for Treatment How to access health informa tion online Indication:BMI 28.0-28.9,adult Start:14-Jul-2019 Instruction Type:Patient Education How to access health informa tion online - Detail Indication:BMI 28.0-28.9,adult Start:14-Jul-2019 Instruction Type:Patient Education Patient Instructions Indication:BMI 28.0-28.9,adult Start:14-Jul-2019 Instruction Type:Provider Instructions for Treatment How to access health informa tion online Indication:BMI 27.0-27.9,adult Start:20-Mar-2019 Instruction Type:Patient Education How to access health informa tion online - Detail Indication:BMI 27.0-27.9,adult Start:20-Mar-2019 Instruction Type:Patient Education Patient Instructions Indication:BMI 27.0-27.9,adult Start:20-Mar-2019 Instruction Type:Provider Instructions for Treatment How to access health informa tion online Indication:Nonsmoker Start:11-Nov-2018 Instruction Type:Patient Education How to access health informa tion online - Detail Indication:Nonsmoker Start:11-Nov-2018 Instruction Type:Patient Education Patient Instructions Indication:Nonsmoker Start:11-Nov-2018 Instruction Type:Provider Instructions for Treatment How to access health informa tion online Indication:Cough Start:28-Feb-2016 Instruction Type:Patient Education How to access health informa tion online - Detail Indication:Cough Start:28-Feb-2016 Instruction Type:Patient Education Patient Instructions Indication:Cough Start:28-Feb-2016 Instruction Type:Provider Instructions for Treatment How to access health informa tion online Indication:Allergic rhinitis Start:24-Jun-2015 Instruction Type:Patient Education How to access health informa tion online - Detail Indication:Allergic rhinitis Start:24-Jun-2015 Instruction Type:Patient Education Patient Instructions Indication:Allergic rhinitis Start:24-Jun-2015 Instruction Type:Provider Instructions for Treatment Patient Instructions Indication:Osteopenia Start:05-May-2014 Instruction Type:Provider Instructions for Treatment Patient Instructions Indication:Benign essential hypertension Start:22-Apr-2013 Instruction Type:Provider Instructions for Treatment Patient Instructions Indication:Benign essential hypertension Start:03-Sep-2012 Instruction Type:Provider Instructions for Treatment Patient Instructions Indication:Osteopenia Start:31-Mar-2012 Instruction Type:Provider Instructions for Treatment Patient Instructions Indication:Benign essential hypertension Start:30-Jan-2012 Instruction Type:Provider Instructions for Treatment Chief Complaint and Reason for Visit Chief Complaint SCREENING/POSTMENO Summary Purpose Advance Directives No Advanced Directives Records FoundNo Advanced Directives Records Found Additional Source Comments Goals (unrecognized section and content) Goals may be documented in a n alternate sectionGoals may be documented in an alternate sectionGoals may be documented in an alternate sectionGoals may be documented in an alternate sectionGoals may be documented in an alternate section INFORMATION SOURCE (unrecogn ized section and content) DATE CREATED AUTHOR 01/29/2022 [facility] DATE CREATED AUTHOR ROCK SABA 08/20/2024 [facility] Care Teams (unrecognized sec tion and content) Team Status: Active Member Role Status Dates Jennifer Espino SYSTEM DEVELOPMENT MANAGER, SYSTEM DEVELOPMENT MANAGER-C Family Provider Active Antonina Wilson NP-C Primary Care Provider Active Team Status: Inactive Member Role Status Dates Antonina Wilson SYSTEM DEVELOPMENT MANAGER-C Primary Care Provider Active LULÚ PANDEY Attending Provider Active Team Status: Inactive Member Role Status Dates Antonina Wilson SYSTEM DEVELOPMENT MANAGER-C Primary Care Provider Active Dr. Fabien Melgar MD Attending Provider, Referring Gustavo bethea Active Team Status: Inactive Member Role Status Dates Antonina Wilson NP-C Primary Care Provider Active Start: June 22, 2024 End: June 22, 2024 LULÚ PANDEY Attending Provider Active Start: June 22, 2024 End: June 22, 2024 LULÚ PANDEY Referring Provider Active Start: June 22, 2024 End: June 22, 2024 Dr. Severo Vuong MD Other Provider Active S tart: June 22, 2024 End: June 22, 2024 FOR RECORDS PERTAINING TO PATIENTS WHO ARE OR HAVE BEEN ENROLLED IN A CHEMICAL DEPENDENCY/SUBSTANCEABUSE PROGRAM, SOME INFORMATION MAY BE OMITTED. This clinical summary was aggregated from multiple sources. Caution should be exercised in using it in the provision of clinical care. This summary normalizes information from multiple sources, and as a consequence, information in this document may materially change the coding, format and clinical context of patient data. In addition, data may be omitted in some cases. CLINICAL DECISIONS SHOULD BE BASED ON THE PRIMARY CLINICAL RECORDS. [facility] [employer] provides no warranty or guarantee of the accuracy or completeness of information in this document.
[2024-08-31 10:31] LABS: Absolute Lymphocyte Count 1.46 X10^3/uL (0.83-4.51); Absolute Neutrophil Count 2.6 X10^3/uL (2.0-7.7); Basophil# 0.04 X10^3/uL; Basophil% 0.9 % (0-1); Eosinophil# 0.14 X10^3/uL; Hematocrit 45.4 % (37-47); Hemoglobin 15.3 g/dL (12.0-15.0); Lymphocyte # 1.46 X10^3/ul (0.83-4.51); Lymphocyte % 31.3 % (19-41); Mean Corp Hgb Conc 33.7 g/dL (32-36); Mean Corpuscular Hgb 30.9 pg (27.0-32.0); Mean Corpuscular Volume 91.7 fL (81-99); Mean Platelet Vol. 11.9 fl (6.2-12.0); Monocyte# 0.46 X10^3/uL; Monocyte% 9.9 % (0-10); NRBC Flagged by Analyzer 0 % (0-5); Neutrophil # 2.55 X10^3/uL (2.7-7.7); Neutrophil % 54.5 % (47-70); Platelet Count 231 K/mm3 (150-450); RBC Distribution Width CV 12.5 % (11.6-14.6); RBC Distribution Width SD 42.3 fl (35.1-43.9); Red Blood Count 4.95 M/mm3 (4.2-5.4); White Blood Count 4.7 K/mm3 (4.4-11.0)
[2024-08-31 11:15] LABS: ALB/GLOB Ratio 1.9 RATIO (0.9-2.4); AST(SGOT) 17 U/L (<=31); Alanine Aminotransfer ALT/SGPT 20 U/L (<=34); Albumin, Serum 4.2 g/dL (3.4-4.8); Alkaline Phosphatase 110 U/L (35-104); Anion Gap 11 (5-15); BUN 15 mg/dL (4-19); BUN/Creat Ratio 24.3 RATIO (10-20); Calcium,Total 9.3 mg/dL (7.6-11.0); Carbon Dioxide 22.8 mmol/L (21.0-32.0); Chloride 103 mmol/L (98-108); Cholesterol 207 mg/dL (<=200); Creatinine, Serum 0.61 mg/dL (0.70-1.20); EST Glomerular Filtration Rate 96 (>60); Globulin 2.2 g/dL (2.2-4.2); Glucose 104 mg/dL (70-99); High Density Lipoprotein 74 mg/dL; Low Density Lipoprotein Calc. 123 mg/dL; Potassium 4.4 mmol/L (3.3-5.1); Protein, Total 6.4 g/dL (5.9-8.4); Sodium Level 137 mmol/L (133-145); Total Bilirubin 0.67 mg/dL (0.00-1.30); Triglycerides 52 mg/dL; Very Low Density Lipoprotein 10 mg/dL (5-40)
[2024-08-31 11:16] LABS: Hemoglobin A1c 5.4 % (<=5.6)
[2024-08-31 11:30] LABS: Estradiol 19.2 pg/mL; Free T3 4.1 pg/mL (2.18-3.98); Thyroid Stim Hormone (TSH) 0.013 uIU/mL (0.300-4.200)
[2024-09-01 04:07] LABS: Thyroid Peroxidase AB 14 IU/mL (0-34)
== END | disposition home or self-care (01) ==
LOC: MTLAB 07:03
PROVIDERS: PCP Nurse Practitioner Family
DX: E03.9 Hypothyroidism, unspecified (principal); E11.9 Type 2 diabetes mellitus without complications; N95.1 Menopausal and female climacteric states; E78.00 Pure hypercholesterolemia, unspecified; E87.5 Hyperkalemia
CPT/HCPCS: 36415; 80053; 80061; 82670; 83036; 84144; 84403; 84439; 84443; 84481; 85025; 86376

== ENCOUNTER → 2024-09-14 | Outpatient (CLI) | payer MEDICARE, SELFPAY | END | disposition home or self-care (01) | LOC: OPBI 14:38 | PROVIDERS: PCP Nurse Practitioner Family; Referring Provider Nurse Practitioner Family; Visit Provider Nurse Practitioner Family | DX: Z12.31 Encounter for screening mammogram for malignant neoplasm of breast (principal) | CPT/HCPCS: 77063; 77067 ==

== ENCOUNTER → 2024-09-15 | Outpatient (CLI) | payer MEDICARE, SELFPAY | END | disposition home or self-care (01) | PROVIDERS: PCP Nurse Practitioner Family; Referring Provider Nurse Practitioner Family; Visit Provider Nurse Practitioner Family | DX: G47.10 Hypersomnia, unspecified (principal); R06.83 Snoring | CPT/HCPCS: 95810 ==

== ENCOUNTER → 2024-09-17 | Outpatient (CLI) | payer MEDICARE, SELFPAY ==
--- NOTE | 2024-09-17 13:58 | BD_ITS ---
PROCEDURE: DEXA BONE DENSITY STUDY 09/17/2024 REASON FOR EXAM: F, age 69 y/o . Postmenopausal. TECHNIQUE: DEXA BONE DENSITY STUDY COMPARISON: Prior study dated February 24, 2019. FINDINGS: BMD and T-SCORES Lumbar spine: 0.795 g/cm2, T-score -2.0 Levels: L1 through L4 Change from prior: Loss of 9.7%. Left femoral neck: 0.670 g/cm2, T-score -1.6 Femoral neck comparison data not recommended for monitoring change. Left total hip: 0.831 g/cm2, T-score -0.9 Change from prior: Loss of 7.1%. Right femoral neck: 0.715 g/cm2, T-score -1.2 Femoral neck comparison data not recommended for monitoring change. Right total hip: 0.848 g/cm2, T-score -0.8 Change from prior: Loss of 1.4%. The World Health Organization has defined the following categories based on bone density: Normal bone density: T-score equal to or greater than -1.0 Osteopenia: T-score between -1.0 and -2.5 Osteoporosis: T-score equal to or less than -2.5 The patient does meet the pharmacological treatment recommendations for prevention of osteoporosis. BD/Dexa Bone Density Study IMPRESSION: OSTEOPENIA. Recommend follow-up as clinically warranted. Reading Location: [place] [id number]
== END | disposition home or self-care (01) ==
LOC: OPBD 13:57
PROVIDERS: PCP Nurse Practitioner Family; Referring Provider Nurse Practitioner Family; Visit Provider Nurse Practitioner Family
DX: Z78.0 Asymptomatic menopausal state (principal)
CPT/HCPCS: 77080

== ENCOUNTER → 2024-12-28 | Outpatient (CLI) | payer MEDICARE, SELFPAY | END | disposition home or self-care (01) | LOC: SL 13:53 | PROVIDERS: PCP Physician Assistant; Referring Provider Nurse Practitioner Family; Visit Provider Nurse Practitioner Family | DX: G47.33 Obstructive sleep apnea (adult) (pediatric) (principal) | CPT/HCPCS: 98960; G0463 ==